=== PATIENT | female | born 1940 | race Caucasian/White ===

== ENCOUNTER 2021-12-30 08:44 | Inpatient (IN) | payer MEDICARE, OTHER, SELFPAY ==
[2021-12-30] VITALS (15 sets, daily range): BP systolic 102–147; BP diastolic 61–91; PULSE 77–128; RESP 16–24; TEMP 36.5–37.1; O2SAT 92–98; BMI 29.7
--- NOTE | 2021-12-30 08:44 | ECG_ITS ---
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 Measurements Intervals [place] Rate: 119 P: 23 WA: 141 QRS: 47 QRSD: 98 T: 211 QT: 301 QTc: 424 Interpretive Statements SINUS TACHYCARDIA LEFT VENTRICULAR HYPERTROPHY AND ST-T CHANGE [VOLTAGE CRITERIA PLUS ST/T ABNORMALITY] No previous ECG available for comparison Electronically Signed On 12-30-2021 14:11:13 CDT by Marvin Chen M.D. [id number]
--- NOTE | 2021-12-30 08:45 | XR_ITS ---
WS: [id number] Exam: XR chest 1V portable [id number] Date/Time of Exam: 12/30/2021 9:32 AM Reason For Exam: dyspnea/cough No priors. The lungs are fully expanded and clear. Normal cardiomediastinal silhouette for technique. No pleural effusions. Bony structures are intact. Surgical clips along the left axilla. XR/XR chest 1V portable [id number] IMPRESSION: 1. No acute cardiopulmonary finding.
--- NOTE | 2021-12-30 09:06 | ED_ITS ---
HPI - Chest Pain General: Chief Complaint: Chest Pain Stated Complaint: sore in chest Time Seen by Provider: 12/30/21 08:44 Source: patient Mode of arrival: ambulatory History of Present Illness: 81-year-old female presents emergency room with complaints of chest pain. She has had this on and off for some time she gets it at night she will belch she has lower substernal chest pain no radiation of the pain she has some chronic shortness of breath that is unchanged for this episode she is not anything that exacerbates or relieves. Evidently has been going on for some time she is chosen not to have any further evaluation. She has a known cardiac murmur that is being monitored with echocardiograms through her primary care doctor. She has a history of diabetes and hyperlipidemia, she is on metformin and a statin. She is not smoke she has no known coronary artery disease MD complaint: chest pain Onset (ago): week(s) Timing of current episode: episodic Prior episodes: Yes Onset: during rest Pain location: substernal and epigastric Pain radiation: none Severity: mild Quality: sharp Relieving factors: nothing Exacerbating factors: nothing Associated symptoms: Deny abdominal pain, diaphoresis, dyspnea, fever(s), leg edema, nausea, palpitations, sense of impending doom, syncope or vomiting Treatment prior to arrival: none Review of Systems Const: Denies: fever(s), chills, fatigue, malaise or diaphoresis ENMT: Denies: throat pain, ear or mastoid pain, nasal discharge or nasal congestion Card: Reports: chest pain and irregular heart rhythm; Denies: palpitations or syncope Resp: Denies: dyspnea GI: Denies: abdominal pain, nausea or vomiting : Denies: flank pain, difficulty voiding, dysuria, urinary frequency or urinary urgency Skin/Breast: Denies: rash or pruritus PFSH ED PFSH: Medical History Aortic stenosis Presumed based on patient's verbal history Breast cancer Diabetes mellitus Gout Hyperlipidemia Hypertension Hypothyroidism Surgical History History of hysterectomy History of mastectomy History of thyroidectomy History of tonsillectomy Family History Other CAD (coronary artery disease) Social History Smoking and tobacco status: never smoked Alcohol intake: never Physical Exam Const: GENERAL APPEARANCE: cooperative and comfortable ORIENTATION/CONSCIOUSNESS: Yes awake, Yes oriented to person, Yes oriented to pl adalberto and Yes oriented to time HENMT: COMMON NORMALS: normocephalic, atraumatic and hearing grossly normal bilaterally HEAD & SCALP: normocephalic and atraumatic Eye: COMMON NORMALS: Equal, round and reactive pupils present, EOMs intact bilaterally, conjunctivae normal and no scleral icterus CONJUNCTIVA: Yes conjunctivae normal PUPIL: Yes Equal, round and reactive pupils present Neck/C-Spine: COMMON NORMALS: full ROM, no lymphadenopathy, supple and no JVD Resp: COMMON NORMALS: normal respiratory effort, No retractions, No use of accessory muscles and clear to auscultation bilaterally AUSCULTATION: clear to auscultation bilaterally Cardio: COMMON NORMALS: no JVD, regular rate, regular rhythm and No murmurs present (Cardio) RATE: regular rate RHYTHM: regular rhythm GI: COMMON NORMALS: Soft to palpation and No hepatosplenomegaly present AUSCULTATION: Yes normoactive bowel sounds PALPATION: Yes Soft to palpation, No Tenderness to palpation present (GI), No Guarding due to palpation present (GI) and Yes No hepatosplenomegaly present Extremity: COMMON NORMALS: normal to inspection, capillary refill normal, no clubbing, cyanosis or edema, no calf tenderness and no pedal edema Neuro: SENSORIUM/ORIENTATION: Yes oriented to person, Yes oriented to place and Yes oriented to time Skin: OTHER: Eschared skin lesion raised posterior left shoulder suspicious for basal cell CA Course Vital Signs: Vital signs: Vital Signs Temperature 98.2 F 12/30/21 13:56 Pulse Rate 107 H 12/30/21 13:56 Respiratory Rate 20 H 12/30/21 13:56 Blood Pressure 135/75 12/30/21 13:56 Pulse Oximetry 98 12/30/21 13:56 Oxygen Delivery Me thod 12/30/21 13:56 Oxygen Flow Rate 2 12/30/21 10:29 MDM - Chest Pain Medical Decision Making Diffuse ST depression as well as progressive shortness of breath and chest discomfort with exertion culminating in significant enough symptoms to require presentation to the emergency room today.. The rate is improved she still has some ST depression although it is improved some initial troponin negative discussed with hospitalist will admit. Patient was given Plavix and initial dose of heparin as well as topical nitro. Medical Records I reviewed the patient's medical records. Lab Data I reviewed the patient's lab results. : 12/30/21 09:25 12/30/21 10:15 Radiology Impressions Chest X-Ray 12/30/21 08:45 IMPRESSION: 1. No acute cardiopulmonary finding. Chest CTA 12/30/21 11:22 IMPRESSION: 1. No pulmonary embolism. 2. Cholelithiasis without acute cholecystitis. 3. Small bilateral pleural effusions, LEFT greater than RIGHT. 4. Mild pulmonary edema. 5. Severe coronary artery atherosclerosis. 6. Prior LEFT mastectomy. Laboratory Results WBC 19.7 10^3/uL (4.0-10.0) H 12/30/21 09:25 RBC 4.68 10^6/uL (4.1-5.3) 12/30/21 09:25 Hgb 13.5 g/dL (11.5-15.3) 12/30/21 09:25 Hct 44.8 % (37.0-47.0) 12/30/21 09:25 MCV 95.7 fl (81-99) 12/30/21 09:25 MCH 28.8 pg (28.0-34.0) 12/30/21 09:25 MCHC 30.1 g/dL (30.0-36.0) 12/30/21 09:25 RDW 17.1 % (12.1-15.1) H 12/30/21 09:25 Plt Count 324 10^3/cmm (130-400) 12/30/21 09:25 MPV 10.7 fL (7.4-10.4) H 12/30/21 09:25 Neut % (Auto) 90.7 % 12/30/21 09:25 Lymph % (Auto) 3.5 % 12/30/21 09:25 Johnston % (Auto) 4.9 % 12/30/21 09:25 Eos % (Auto) 0.1 % 12/30/21 09:25 Baso % (Auto) 0.3 % 12/30/21 09:25 Neut # (Auto) 17.88 10^3/uL (1.8-7.7) H 12/30/21 09:25 Lymph # (Auto) 0.7 10^3/uL (0.8-4.8) L 12/30/21 09:25 Johnston # (Auto) 1.0 10^3/uL (0.2-0.9) H 12/30/21 09:25 Eos # (Auto) 0.0 10^3/uL (0.0-0.8) 12/30/21 09:25 Baso # (Auto) 0.1 10^3/uL (0.0-0.1) 12/30/21 09:25 Nucleated RBC % (auto) 0 % 12/30/21 09:25 Nucleated RBCs # 0.0 /100WBC 12/30/21 09:25 Sodium 139 mmol/L (136-145) 12/30/21 10:15 Potassium 4.8 mmol/L (3.5-5.1) 12/30/21 10:15 Chloride 100 mmol/L (98-107) 12/30/21 10:15 Carbon Dioxide 24 mmol/L (22-29) 12/30/21 10:15 Anion Gap 19.8 (5-19) H 12/30/21 10:15 BUN 15 mg/dL (8-23) 12/30/21 10:15 Creatinine 0.9 mg/dL (0.5-0.9) 12/30/21 10:15 GFR Calculation Not Reportable 12/30/21 10:15 Glucose 203 mg/dL (65-115) H 12/30/21 10:15 Calculated Osmolality 295 mOsm/kg (285-295) 12/30/21 10:15 Calcium 10.1 mg/dL (8.5-10.5) 12/30/21 10:15 Troponin T Baseline 39 ng/L (0-10) H 12/30/21 10:15 Troponin T 120 Minute 38.90 ng/L (0-10) H 12/30/21 12:15 Delta Troponin T -0.10 ABS# (0-10) L 12/30/21 12:15 TSH 0.07 uIU/mL (0.27-4.20) L 12/30/21 10:15 Urine Color Yellow (Yellow) 12/30/21 10:52 Urine Appearance Sl hazy (CLEAR) A 12/30/21 10:52 Urine pH 6.0 (5-7) 12/30/21 10:52 Ur Specific [place] >= 1.030 (1.005-1.030) 12/30/21 10:52 Urine Protein 2+ (Negative) A 12/30/21 10:52 Urine Glucose (UA) Negative (Normal) 12/30/21 10:52 Urine Ketones 1+ (Negative) A 12/30/21 10:52 Urine Blood Negative (Negative) 12/30/21 10:52 Urine Nitrate Positive 12/30/21 10:52 Urine Bilirubin Negative (Negative) 12/30/21 10:52 Urine Urobilinogen 0.2 mg/dL (Negative) 12/30/21 10:52 Ur Leukocyte Esterase 1+ 12/30/21 10:52 Urine RBC 0-4 /hpf (0-2) H 12/30/21 10:52 Urine WBC 25-40 /hpf (0-5) H 12/30/21 10:52 Ur Squamous Epith Cells 0-4 /hpf (0-5) H 12/30/21 10:52 Amorphous Sediment Not Reportable 12/30/21 10:52 Urine Bacteria 3+ /hpf (NONE) H 12/30/21 10:52 Discharge Plan Discharge Patient Disposition: Admitted As Inpatient Admit Provider: Anant Doherty Clinical Impression: Chest pain, Aortic stenosis, Diabetes mellitus, Hypothyroidism, UTI (urinary tract infection) Condition: Stable Coding Level of Care Code ED Commercial Sales Manager for Chg Fwd Exam Comprehensive
[2021-12-30 09:32] LABS: Basophils # 0.1 10^3/uL (0.0-0.1); Basophils % 0.3 %; Eosinophils % 0.1 %; Hematocrit 44.8 % (37.0-47.0); Hemoglobin 13.5 g/dL (11.5-15.3); Lymphocytes # 0.7 10^3/uL (0.8-4.8); Lymphocytes % 3.5 %; Mean Corpuscular HGB Conc 30.1 g/dL (30.0-36.0); Mean Corpuscular Hemoglobin 28.8 pg (28.0-34.0); Mean Corpuscular Volume 95.7 fl (81-99); Mean Platelet Volume 10.7 fL (7.4-10.4); Monocytes % 4.9 %; Neutrophils # 17.88 10^3/uL (1.8-7.7); Neutrophils % 90.7 %; Nucleated Red Blood Cells % 0 %; Platelet Count 324 10^3/cmm (130-400); Red Blood Count 4.68 10^6/uL (4.1-5.3); Red Cell Distribution Width 17.1 % (12.1-15.1); White Blood Count 19.7 10^3/uL (4.0-10.0)
[2021-12-30] MEDS: heparin 5,000 unit/mL INJ 1 mL 4000 UNIT IVP (09:35)
[2021-12-30] MEDS: clopidogrel 300 mg Tablet PO (09:36)
[2021-12-30] MEDS: nitroglycerin 1 gm/inch oint Pkt 1 INCH TOPICAL (09:36)
--- NOTE | 2021-12-30 10:10 | ECG_ITS ---
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 Measurements Intervals [place] Rate: 107 P: 49 ME: 149 QRS: 36 QRSD: 98 T: -75 QT: 311 QTc: 415 Interpretive Statements SINUS TACHYCARDIA WITH FREQUENT SUPRAVENTRICULAR PREMATURE COMPLEXES LEFT VENTRICULAR HYPERTROPHY AND ST-T CHANGE [VOLTAGE CRITERIA PLUS ST/T ABNORMALITY] Compared to ECG 12/30/2021 09:16:49 No significant changes Electronically Signed On 12-30-2021 14:11:11 CDT by Marvin Chen M.D. [id number]
[2021-12-30 10:36] LABS: Anion Gap 19.8 (5-19); Blood Urea Nitrogen 15 mg/dL (8-23); Calcium 10.1 mg/dL (8.5-10.5); Carbon Dioxide 24 mmol/L (22-29); Chloride 100 mmol/L (98-107); Glucose 203 mg/dL (65-115); Osmolality Calculated 295 mOsm/kg (285-295); Potassium 4.8 mmol/L (3.5-5.1); Sodium 139 mmol/L (136-145)
[2021-12-30 10:39] LABS: Troponin(5th) Baseline 39 ng/L (0-10)
--- NOTE | 2021-12-30 11:06 | PC.NURSE ---
Pt ambulated to restroom with standby assist and cane.
[2021-12-30 11:11] LABS: Bilirubin Urine Negative (Negative); Blood Urine Negative (Negative); Glucose Urine UA Negative (Normal); Ketones Urine 1+ (Negative); Leukocyte Esterase Urine 1+; Nitrate Urine Positive; Protein Urine 2+ (Negative); Specific Gravity, Urine >= 1.030 (1.005-1.030); Urine Color Yellow (Yellow); Urobilinogen Urine 0.2 mg/dL (Negative)
[2021-12-30 11:16] LABS: Add Urine Microscopic? YES; Urine Appearance SL Hazy (CLEAR)
[2021-12-30 11:17] LABS: RBC Urine 0-4 /hpf (0-2)
[2021-12-30 11:18] LABS: Add Urine Culture? Yes; Bacteria Urine 3+ /hpf; Squamous Epithelial Cell Urine 0-4 /hpf (0-5); WBC Urine 25-40 /hpf (0-5)
--- NOTE | 2021-12-30 11:22 | CT_ITS ---
WS: [id number] CT CHEST ANGIOGRAPHY WITH REFORMATS HISTORY: chest pain, dyspnea TECHNIQUE: Contiguous axial images are obtained through the chest during arterial injection of intrav enous contrast. Images are reconstructed to evaluate the pulmonary arteries. MIP imaging also reviewe d. All CT scans at [facility] use at least one of these dose optimization techniques: automat ed exposure control; mA and/or kV adjustment per patient size (includes targeted exams where dose is matched to clinical indication); or iterative reconstruction. CONTRAST: Omnipaque 350; 95 mL IV. DLP: 307.71 mGy.cm COMPARISON: None available. Very good opacification of the pulmonary arteries. No filling defects or pulmonary embolism. Pulmonar y artery size is top normal. Mild atherosclerotic plaque within the thoracic aorta. No aneurysm. Ther e is heavy calcification throughout the coronary arteries. 12 mm RIGHT hilar lymph node. Small bilateral pleural effusions, LEFT greater than RIGHT. There is also mild haziness throughout pasha th lungs which is probably due to small amount of edema. Pleural thickening at the lingula. No pneumo thorax. Patient is status post LEFT mastectomy. No abnormality at the mastectomy site. Cholelithiasis. No adrenal mass. Only a small portion of the liver is included. Mild osteopenia. CT/CT angio chest PE protcl [id number] IMPRESSION: 1. No pulmonary embolism. 2. Cholelithiasis without acute cholecystitis. 3. Small bilateral pleural effusions, LEFT greater than RIGHT. 4. Mild pulmonary edema. 5. Severe coronary artery atherosclerosis. 6. Prior LEFT mastectomy.
[2021-12-30 11:24] LABS: Thyroid Stimulating Hormone 0.07 uIU/mL (0.27-4.20)
--- NOTE | 2021-12-30 11:26 | USCV_ITS ---
Cristal Gonzalez Age: 81 Gender: F : 1940 Exam Date: 12/30/2021 12:01 Ordering Phys: Anant Doherty MD Technologist: Jonas Stevens [place] [facility] [place]: murmur BP: 132 / 74 HR: 103 Rhythm: Sinus Technical Quality: Adequate MEASUREMENTS (Male / Female) Normal Values 2D ECHO LV Diastolic Diameter PLAX 4.6 cm 4.2 - 5.9 / 3.9 - 5.3 cm LV Systolic Diameter PLAX 3.0 cm IVS Diastolic Thickness 1.0 cm 0.6 - 1.0 / 0.6 - 0.9 cm IVS Systolic Thickness 1.5 cm LVPW Diastolic Thickness 1.0 cm 0.6 - 1.0 / 0.6 - 0.9 cm LVPW Systolic Thickness 1.4 cm LVOT Diameter 2.0 cm LV Ejection Fraction 2D Teich 63.2 % LV Ejection Fraction MOD 2C 54.7 % LV Ejection Fraction 2C AL 53.9 % LA Diameter 4.4 cm Aorta at Sinotubular Diameter 2.7 cm IVC Diameter 1.9 cm M-MODE Aortic Annulus Diameter 2.8 cm LA Ao Ratio MM 1.3 MV E Point Septal Separation 1.0 cm DOPPLER AV Peak Velocity 446.0 cm/s LVOT Peak Velocity 75.7 cm/s AV Area Cont Eq vti 0.5 cm squared AV Area Cont Eq pk 0.5 cm squared MV Area PHT 5.0 cm squared Mitral E to A Ratio 1.3 MV E' Velocity 51.0 cm/s Mitral E to MV E' Ratio 13.5 Mitral E to LV E' Lateral Ratio 11.4 Mitral E to LV E' Septal Ratio 16.6 TR Peak Velocity 301.3 cm/s TR Peak Gradient 36.3 mmHg TV Peak E Velocity 89.0 cm/s Right Atrial Pressure 3.0 mmHg Pulmonary Artery Systolic Pressu 39.3 mmHg PV Peak Velocity 173.0 cm/s RV Acceleration Time 0.1 s FINDINGS Left Ventricle Normal LV size with ejection fraction of 50 to 55%. The basal inferior segment is somewhat dyskinetic. Hypokinetic mid and apical inferior wall segment.Grade III/IV diastolic dysfunction (restrictive filling pattern), severely elevated filling pressures. Right Ventricle The right ventricle is normal in size and function. Right Atrium Mildly increased right atrial size. Left Atrium Mildly increased left atrial size. Mitral Valve Moderate mitral annular calcification. Moderate eccentric mitral valve regurgitation. Aortic Valve Moderate to heavy aortic valve calcification. Sbhp-tn-hvhvrein aortic valve regurgitation. Severe aortic valve stenosis with a valve area of 0.5 cm2.the aortic valve peak velocity was 4.46 m/s.Peak gradient of 75.7 with a mean gradient of 32.4 mmHg. Mild to moderate aortic regurgitation. Tricuspid Valve Mild tricuspid valve regurgitation. Pulmonic Valve No gross abnormalities noted. Pericardium No pericardial effusion. Aorta Normal ascending aorta dimension. IVC Normal inferior vena cava. CONCLUSIONS Normal LV size with ejection fraction of 50 to 55%. The basal inferior segment is somewhat dyskinetic. Hypokinetic mid and apical inferior wall segment. Grade III/IV diastolic dysfunction (restrictive filling pattern), severely elevated filling pressures. Severe aortic valve stenosis with a valve area of 0.5 cm2; the peak velocity of 4.46 m/s, peak gradient of 75.7 with a mean gradient of 32.4 mmHg. Mild to moderate aortic regurgitation. Moderate mitral annular calcification. Moderate eccentric mitral valve regurgitation. Mild biatrial enlargement Mild tricuspid valve regurgitation. Estimated pulmonary artery peak systolic pressure was 39 mmHg There is no pericardial effusion. There are no intracardiac masses. No similar previous studies are available for comparison Dr Deonte Shah MD [facility] (Electronically Signed) Final Date: 30 December 2021 17:01 S
--- NOTE | 2021-12-30 11:32 | P.HP_ITS ---
Providers/Chief Complaint Admitting Physician: Anant Doherty MD Primary Care Provider: Mason Perea MD Chief Complaint: sore in chest History of Present Illness Cristal Gonzalez is a 81 year old female presenting to the emergency department with complaints of chest discomfort. She reports it was over her lower chest, severe, difficult to describe without radiation. It was associated with nausea and some shortness of breath. She states it lasted for approximately [address] arting at 3 AM and ending around 7-7 30. She states it initially started with burping, and that she can have this frequently but is never had chest discomfort with it. She denies any fever, vomiting, hematemesis, melena, hematochezia. She denies any discomfort now although she is still short of breath. She states she has past history of aortic stenosis, and there was consideration for surgery in the past but then it was determined it was not severe enough. She has seen [facility] cardiology before. In the emergency department she received 4000 units of heparin x1, Plavix 300 mg x 1, nitroglycerin ointment. Review of Systems Const: Denies: fever(s) or chills Eyes: Denies: change in vision ENMT: Denies: throat pain Card: Reports: chest pain and dyspnea on exertion Resp: Reports: dyspnea; Denies: productive cough or non-productive cough GI: Denies: abdominal pain, vomiting, hematemesis, hematochezia or melena : Denies: flank pain Musc: Denies: neck pain Skin/Breast: Denies: rash Neuro: Denies: headache(s) Psych: Reports: anxiety; Denies: depression Endo: Denies: polyuria Skyler/Lymph: Denies: easy bruising All/Imm: Denies: urticaria Medications/Allergies Home Medications Medication Instructions Recorded Confirmed Last Taken Type allopurinol 300 mg tablet 300 mg PO BEDTIME 12/30/21 12/30/21 12/29/21 History anastrozole 1 mg tablet 1 mg PO BEDTIME 12/30/21 12/30/21 12/29/21 History aspirin 81 mg tablet,delayed 81 mg PO BEDTIME 12/30/21 12/30/21 12/29/21 History release calcium carbonate 500 mg calcium 500 mg PO DAILY 12/30/21 12/30/21 Unknown History (1,250 mg) tablet cholecalciferol (vitamin D3) 10 800 unit PO DAILY 12/30/21 12/30/21 Unknown History mcg (400 unit) tablet (Vitamin D3) levothyroxine 125 mcg tablet 125 mcg PO QAM 12/30/21 12/30/21 12/29/21 History lisinopril 20 mg tablet 20 mg PO QAM 12/30/21 12/30/21 12/29/21 History lovastatin 20 mg tablet 20 mg PO BEDTIME 12/30/21 12/30/21 12/29/21 History metformin 500 mg tablet 500 mg PO BID 12/30/21 12/30/21 12/29/21 History omega-3 fatty acids 1,000 mg 1,000 mg PO DAILY 12/30/21 12/30/21 Unknown History capsule vit C 250 mg-vit E 90 mg-zinc 40 1 tab PO BID 12/30/21 12/30/21 12/29/21 History mg-copper 1 [id number] capsule (PreserVision AREDS-2) Allergies Allergy/AdvReac Type Severity Reaction Status Date / Time iodine Allergy ADR-Itching Verified 12/30/21 08:55 PFSH Acute PFSH: Medical History (Updated 12/30/21 @ 12:43 by Anant Doherty MD) Aortic stenosis Presumed based on patient's verbal history Breast cancer Diabetes mellitus Gout Hyperlipidemia Hypertension Hypothyroidism Surgical History (Updated 12/30/21 @ 12:38 by Anant Doherty MD) History of hysterectomy History of mastectomy History of thyroidectomy History of tonsillectomy Family History (Updated 12/30/21 @ 12:39 by Anant Doherty MD) Other CAD (coronary artery disease) Social History Smoking and tobacco status: never smoked Alcohol intake: never Vitals/I&O/Wt Last Vital Signs Temp 98.8 F 12/30/21 08:57 Pulse 123 H 12/30/21 11:08 Resp 20 H 12/30/21 11:08 BP 126/83 12/30/21 11:08 Pulse Ox 95 12/30/21 11:08 O2 Del Method 12/30/21 11:08 O2 Flow Rate 2 12/30/21 10:29 Weight last 48 hrs Weight 78.471 kg Physical Exam Narrative: General exam demonstrates a white female, no distress currently but at least mild tachypnea with mild respiratory distress HEENT: Atraumatic normocephalic pupils equally round. Oropharynx clear. Neck is supple no lymphadenopathy or thyromegaly Cardiovascular tachycardic, regular, 3-4/6 systolic murmur heard best aortic area with radiation to apex Lungs clear no wheezing or crackles Abdomen is soft nontender positive bowel sounds. No obvious organomegaly. exam is deferred Extremities no cyanosis clubbing or edema, cap refill brisk Skin no rash Neuro no obvious focal deficits Data : 12/30/21 09:25 12/30/21 10:15 Other Labs: Initial EKG demonstrates sinus rhythm, rate of 120, normal axis, LVH changes. ST depression noted V4 through 6 as well as laterally and inferiorly. Repeat EKG demonstrates heart rate of 105. ST depression is less prominent V4 through 6. T waves are flattened but now not inverted in the lateral leads. TSH low at 0.07 Troponin 39 initially Urinalysis 25-40 white cells 0-4 squamous and 3+ bacteria Chest x-ray no infiltrate A&P Assessment and plan (1) Chest pain: Concern on admission this may represent a non-ST elevation myocardial infarction. Initial troponin is elevated. EKG with changes were present, which seem to have improved over her emergency department course. However, considering her cancer history and patient also reported to me she may have had COVID with 3 to 4 days of fever around 4-1/2 weeks ago and loss of s enrique will need to rule out pulmonary embolism with CTA of the chest. Full dose anticoagulation Aspirin daily Continue statin Cardiology consult Echocardiogram Note that she was loaded with Plavix by the emergency department physician. CTA demonstrates bilateral pleural effusions, small left greater than right and mild fluid overload. Will provide Lasix 40 mg IV x1. This is consistent with acute mild diastolic congestive heart failure (2) Aortic stenosis: Severe aortic stenosis could lead to chest discomfort. Await echocardiogram. (3) UTI (urinary tract infection): Rocephin 1 g IV every 24 hours Urine culture (4) Diabetes mellitus: Initiate sliding scale insulin (5) Hypothyroidism: She appears to be oversupplemented Reduce thyroid hormone to 100 mcg daily Plan Other medical problems as outlined in past medical history Full code currently Lovenox will be used for DVT prophylaxis Protonix for GI prophylaxis Attestations Medical Necessity Statement*: Will require greater than 2 midnight evaluation and treatment secondary to non-ST elevation myocardial infarction. Coding Level of Care Code Acute Online Advertising Manager for g Fwd Diagnoses Chest pain R07.9 Aortic stenosis I35.0 UTI (urinary tract infection) N39.0 Diabetes mellitus E11.9 Hypothyroidism E03.9
[2021-12-30] MEDS: diphenhydrAMINE 50 mg/mL SDV 1mL IVP (12:17)
[2021-12-30] MEDS: cefTRIAXone 1,000 MG in sodium chloride 0.9% (plus) 50 ML 100 MG IV (12:19)
[2021-12-30] MEDS: iohexol 350 mg/mL 100 mL Btl IV (12:48)
--- NOTE | 2021-12-30 12:51 | PC.NURSE ---
Report called to LIZZY Arias
[2021-12-30] MEDS: FUROsemide 10 mg/mL SDV 4mL 40 MG IVP (15:46)
[2021-12-30 16:33] LABS: Glucose Point of Care 224 mg/dL (70-110)
--- NOTE | 2021-12-30 16:34 | PM.CONSULT ---
Providers/Reason For Consult Consulting Physician/Specialty*: IBAN Shah MD/cardiology Reason for Consult*: Chest pain/abnormal EKG/aortic valve stenosis Requesting Physician: Dr. Anant Doherty Attending Physician: Anant Doherty MD Primary Care Provider: Mason Perea MD History of Present Illness History of Present Illness Cristal Gonzalez is a 81 year old female with a history of diabetes, hypertension, dyslipidemia, and calcific aortic valve stenosis is admitted to hospital through the emergency room where she presented with complaints of a prolonged episode of chest pain and belching. She was found to have elevated troponin T at the baseline with a nonsignificant delta. She also had some EKG changes. Cardiology consult is requested for further cardiac evaluation recommendations. This patient has no previous history for any coronary artery disease, myocardial infarction or congestive heart failure. She has been in her baseline state of health up until 3:00 this morning when she woke up from sleep, started twinges or pain occurring across the chest, in the low substernal area. This is moderate intensity. This symptom might have persisted for 2 to 3 hours. The pain was preceded by some belching. Later when she had a bowel movement which might have got rid of the belching. However she continued to have the pain for an hour or so. By the time she came to the emergency room, her chest pain was completely resolved. Has not had any recurrence since then. She has a history of belching at least couple of times a week mostly in the night. She also get belching with a full stomach. This has been going on for a year or so. usually she does not have the pain with the belching. She used to see a director sanitation bureau in [place]. This was mainly for the aortic valve stenosis. She used to get serial echocardiogram to follow-up on the aortic valve stenosis. She never had a stress test or cardiac catheterization. However for the last more than a year, she has not had any follow-up evaluations by the director sanitation bureau And her father had a myocardial infarction in his late 60s and of the same. 2 of her sisters had coronary disease and myocardial infarction in the 60s and 70s. 3 of her the paternal uncles also had a myocardial infarction's. No history for any smoking abuse or alcohol abuse. No other substance abuse. Review of Systems Narrative: CONSTITUTIONAL: No fever or chills. EYES: No blurring of vision or other visual disturbances lately. ENT: No hoarseness of voice, auditory disturbances or sore throat. CARDIOVASCULAR: As mentioned above. RESPIRATORY: No significant cough. GASTROINTESTINAL: No hematemesis or melena. GENITOURINARY: No dysuria or hematuria. INTEGUMENTARY: No skin rashes or history of skin cancer. NEURO: No transient ischemic attacks or amaurosis. PSYCHIATRIC: No history of psychosis or major depression. HEMATOLOGIC: No bleeding disorders or significant anemia. ENDOCRINE: History of type 2 diabetes MUSCULOSKELETAL: No recent joint pain or swelling. ALLERGY/IMMUNOLOGY: As mentioned above. Medications/Allergies Home Medications Medication Instructions Recorded Confirmed Last Taken Type allopurinol 300 mg tablet 300 mg PO BEDTIME 12/30/21 12/30/21 12/29/21 History anastrozole 1 mg tablet 1 mg PO BEDTIME 12/30/21 12/30/21 12/29/21 History aspirin 81 mg tablet,delayed 81 mg PO BEDTIME 12/30/21 12/30/21 12/29/21 History release calcium carbonate 500 mg calcium 500 mg PO DAILY 12/30/21 12/30/21 Unknown History (1,250 mg) tablet cholecalciferol (vitamin D3) 10 800 unit PO DAILY 12/30/21 12/30/21 Unknown History mcg (400 unit) tablet (Vitamin D3) levothyroxine 125 mcg tablet 125 mcg PO QAM 12/30/21 12/30/21 12/29/21 History lisinopril 20 mg tablet 20 mg PO QAM 12/30/21 12/30/21 12/29/21 History lovastatin 20 mg tablet 20 mg PO BEDTIME 12/30/21 12/30/21 12/29/21 History metformin 500 mg tablet 500 mg PO BID 12/30/21 12/30/21 12/29/21 History omega-3 fatty acids 1,000 mg 1,000 mg PO DAILY 12/30/21 12/30/21 Unknown History capsule vit C 250 mg-vit E 90 mg-zinc 40 1 tab PO BID 12/30/21 12/30/21 12/29/21 History mg-copper 1 cm-[id number]-edfmbb capsule (PreserVision AREDS-2) Allergies Allergy/AdvReac Type Severity Reaction Status Date / Time iodine Allergy ADR-Itching Verified 12/30/21 08:55 Current Medications Generic Name Dose Route Start Last Admin Trade Name Carlosq PRN Reason Stop Dose Admin Ceftriaxone Sodium 1,000 mg/ 50 mls @ 100 mls/hr 12/30/21 11:30 12/30/21 13:22 Sodium Chloride IV Infused Q24H PADMA Infusion Protocol PFSH Acute PFSH: Medical History (Updated 12/30/21 @ 18:24 by Deonte Shah MD) Aortic stenosis Presumed based on patient's verbal history Breast cancer Diabetes mellitus Gout Hyperlipidemia Hypertension Hypothyroidism Surgical History History of hysterectomy History of mastectomy History of thyroidectomy History of tonsillectomy Family History Other CAD (coronary artery disease) Social History Smoking and tobacco status: never smoked Alcohol intake: never Vitals/I&O/Wt Last Vital Signs Temp 98.0 F 12/30/21 16:00 Pulse 97 12/30/21 16:00 Resp 20 H 12/30/21 16:00 BP 127/72 12/30/21 16:00 Pulse Ox 95 12/30/21 16:00 O2 Del Method 12/30/21 16:00 O2 Flow Rate 2 12/30/21 10:29 12/30/21 12/30/21 12/30/21 06:59 14:59 22:59 Intake Total 50 / 50 Balance 50 / 50 Weight last 48 hrs Weight 164 lb 6.4 oz Weight 173 lb Physical Exam Narrative: GENERAL: The patient is alert and oriented times three. Not in any acute distress. HEENT: No significant pallor, icterus or lymphadenopathy.Oral cavity: There are no mucous membrane lesions. NECK: Trachea appears to be central. No masses noted. No JVD or thyromegaly appreciated. RESPIRATORY: Chest is symmetrical. No intercostals muscle retraction or any accessory muscle activation. There is no chest wall tenderness. Breath sounds are heard bilaterally. No rales or rhonchi heard. No evidence of any consolidation. BREASTS: Deferred. HEART: Ejection systolic murmur of a grade 4/6 in the aortic area, transmitted to both carotids. No diastolic murmurs. Second is somewhat muffled. ABDOMEN: No vessel pulsations or distention. No tenderness. No organomegaly appreciated. Bowel sounds are normally heard. : Deferred. RECTAL: Deferred. LYMPHATIC: No lymphadenopathy noted in the neck. EXTREMITIES: The peripheral pulses are palpable but somewhat weak bilaterally. No cyanosis. No significant edema. MUSCULOSKELETAL: No acute joint deformities or swelling SKIN: There are no significant rashes or ecchymosis NEUROPSYCHIATRIC: The patient is alert and oriented x3. Appears to be in a good mood. No tremors or rigidity noted. Data : 12/30/21 09:25 12/30/21 10:15 Other Labs: Laboratory Last Values WBC 19.7 10^3/uL (4.0-10.0) H 12/30/21 09:25 RBC 4.68 10^6/uL (4.1-5.3) 12/30/21 09:25 Hgb 13.5 g/dL (11.5-15.3) 12/30/21 09:25 Hct 44.8 % (37.0-47.0) 12/30/21 09:25 MCV 95.7 fl (81-99) 12/30/21 09:25 MCH 28.8 pg (28.0-34.0) 12/30/21 09:25 MCHC 30.1 g/dL (30.0-36.0) 12/30/21 09:25 RDW 17.1 % (12.1-15.1) H 12/30/21 09:25 Plt Count 324 10^3/cmm (130-400) 12/30/21 09:25 MPV 10.7 fL (7.4-10.4) H 12/30/21 09:25 Neut % (Auto) 90.7 % 12/30/21 09:25 Lymph % (Auto) 3.5 % 12/30/21 09:25 Wright % (Auto) 4.9 % 12/30/21 09:25 Eos % (Auto) 0.1 % 12/30/21 09:25 Baso % (Auto) 0.3 % 12/30/21 09:25 Neut # (Auto) 17.88 10^3/uL (1.8-7.7) H 12/30/21 09:25 Lymph # (Auto) 0.7 10^3/uL (0.8-4.8) L 12/30/21 09:25 Wright # (Auto) 1.0 10^3/uL (0.2-0.9) H 12/30/21 09:25 Eos # (Auto) 0.0 10^3/uL (0.0-0.8) 12/30/21 09:25 Baso # (Auto) 0.1 10^3/uL (0.0-0.1) 12/30/21 09:25 Nucleated RBC % (auto) 0 % 12/30/21 09:25 Nucleated RBCs # 0.0 /100WBC 12/30/21 09:25 Sodium 139 mmol/L (136-145) 12/30/21 10:15 Potassium 4.8 mmol/L (3.5-5.1) 12/30/21 10:15 Chloride 100 mmol/L (98-107) 12/30/21 10:15 Carbon Dioxide 24 mmol/L (22-29) 12/30/21 10:15 Anion Gap 19.8 (5-19) H 12/30/21 10:15 BUN 15 mg/dL (8-23) 12/30/21 10:15 Creatinine 0.9 mg/dL (0.5-0.9) 12/30/21 10:15 GFR Calculation Not Reportable 12/30/21 10:15 Glucose 203 mg/dL (65-115) H 12/30/21 10:15 POC Glucose 224 mg/dL (70-110) H 12/30/21 16:29 Calculated Osmolality 295 mOsm/kg (285-295) 12/30/21 10:15 Calcium 10.1 mg/dL (8.5-10.5) 12/30/21 10:15 Troponin T Baseline 39 ng/L (0-10) H 12/30/21 10:15 Troponin T 120 Minute 38.90 ng/L (0-10) H 12/30/21 12:15 Delta Troponin T -0.10 ABS# (0-10) L 12/30/21 12:15 Troponin T Hi Sens 6Hr 43.76 ng/L (0-10) H 12/30/21 16:00 Troponin T Hi Sens 6Hr Delta 4.76 ng/L (0-12) 12/30/21 16:00 TSH 0.07 uIU/mL (0.27-4.20) L 12/30/21 10:15 Urine Color Yellow (Yellow) 12/30/21 10:52 Urine Appearance Sl hazy (CLEAR) A 12/30/21 10:52 Urine pH 6.0 (5-7) 12/30/21 10:52 Ur Specific [place] >= 1.030 (1.005-1.030) 12/30/21 10:52 Urine Protein 2+ (Negative) A 12/30/21 10:52 Urine Glucose (UA) Negative (Normal) 12/30/21 10:52 Urine Ketones 1+ (Negative) A 12/30/21 10:52 Urine Blood Negative (Negative) 12/30/21 10:52 Urine Nitrate Positive 12/30/21 10:52 Urine Bilirubin Negative (Negative) 12/30/21 10:52 Urine Urobilinogen 0.2 mg/dL (Negative) 12/30/21 10:52 Ur Leukocyte Esterase 1+ 12/30/21 10:52 Urine RBC 0-4 /hpf (0-2) H 12/30/21 10:52 Urine WBC 25-40 /hpf (0-5) H 12/30/21 10:52 Ur Squamous Epith Cells 0-4 /hpf (0-5) H 12/30/21 10:52 Amorphous Sediment Not Reportable 12/30/21 10:52 Urine Bacteria 3+ /hpf (NONE) H 12/30/21 10:52 EKG 1: My Interpretation: Sinus tachycardia with a rate of 119 bpm. Voltage criteria for LVH. Downsloping ST depression with T inversion in the anterolateral leads suggesting ischemia versus secondary ST-T changes from the LVH. Normal QTC. EKG computer-generated impression: Chest X-Ray 12/30/21 08:45 IMPRESSION: 1. No acute cardiopulmonary finding. Chest CTA 12/30/21 11:22 IMPRESSION: 1. No pulmonary embolism. 2. Cholelithiasis without acute cholecystitis. 3. Small bilateral pleural effusions, LEFT greater than RIGHT. 4. Mild pulmonary edema. 5. Severe coronary artery atherosclerosis. 6. Prior LEFT mastectomy. EKG 2: My Interpretation: Sinus tachycardia with a heart rate of 106 bpm. Features of LVH. ST depression of 1 to 2 mm in the anterolateral leads with T inversions suggesting ischemia versus secondary ST-T changes EKG computer-generated impression: Chest X-Ray 12/30/21 08:45 IMPRESSION: 1. No acute cardiopulmonary finding. Chest CTA 12/30/21 11:22 IMPRESSION: 1. No pulmonary embolism. 2. Cholelithiasis without acute cholecystitis. 3. Small bilateral pleural effusions, LEFT greater than RIGHT. 4. Mild pulmonary edema. 5. Severe coronary artery atherosclerosis. 6. Prior LEFT mastectomy. 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 In view of the current symptoms, EKG, echocardiogram evidence of wall motion normalities, most likely she may have underlying coronary disease. For further evaluation of the coronary status, a cardiac catheterization would be appropriate. The risk of bleeding, hematoma, vascular injury, myocardial infarction, CVA, renal failure and other concomitant complications were explained in detail. Patient understood this well and consented to proceed. We may go ahead and schedule this as early as possible. In the meanwhile, she may be kept on Lovenox, beta-abel, Plavix, aspirin, statin and other symptomatic measures. Based on the angiogram findings, further recommendations will be made (2) Severe aortic valve stenosis: Patient seems to have severe aortic valve stenosis. We may try to cross the aortic valve to get a gradient across the aortic valve. Based on this, further recommendations will be made. (3) Hyperlipidemia: Continue on the current medications (4) Diabetes mellitus: Aggressive management as per Dr. Gibson Plan Other problems Iodide allergy-responded well to 1 dose of IV methylprednisone Leukocytosis, etiology unclear Based on the results of the above tests and the patient's clinical progress, further recommendations will be made. 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
--- NOTE | 2021-12-30 16:45 | ECG_ITS ---
[facility] Test Date: 2021-12-30 Pat Name: Cristal Gonzalez Department: Room: 277 Gender: Female [employer] Representative: : 1940 Requested By: Nate Gates Order Number: [id number] Nehemiah MD: Marvin Chen M.D. Measurements Intervals [place] Rate: 105 P: 39 ND: 154 QRS: 28 QRSD: 93 T: -3 QT: 356 QTc: 471 Interpretive Statements SINUS TACHYCARDIA WITH OCCASIONAL SUPRAVENTRICULAR PREMATURE COMPLEXES LEFT VENTRICULAR HYPERTROPHY AND ST-T CHANGE [VOLTAGE CRITERIA PLUS ST/T ABNORMALITY] Compared to ECG 12/30/2021 10:10:34 No significant changes Electronically Signed On 12-31-2021 8:51:27 CDT by Marvin Chen M.D. [id number]
[2021-12-30 16:59] LABS: Troponin 5 6HR 43.76 ng/L (0-10)
[2021-12-30 17:05] LABS: Troponin 5 6HR Delta 4.76 ng/L (0-12)
[2021-12-30] MEDS: enoxaparin 80 mg/0.8 mL Syringe SUBCUT (19:12)
[2021-12-30] MEDS: insulin lispro 100 unit/1 mL SUBCUT ×2 (19:12→21:04)
[2021-12-30] MEDS: allopurinol 300 mg Tablet PO (20:35)
[2021-12-30] MEDS: aspirin 81 mg EC Tablet PO (20:35)
[2021-12-30] MEDS: atorvastatin 40 mg Tablet 20 MG PO (20:35)
[2021-12-30 20:39] LABS: Glucose Point of Care 333 mg/dL (70-110)
[2021-12-31] VITALS (58 sets, daily range): BP systolic 83–131; BP diastolic 45–82; PULSE 68–118; RESP 16–22; TEMP 36.5–36.7; O2SAT 95–99
[2021-12-31 05:23] LABS: Basophils % 0.1 %; Hematocrit 36.9 % (37.0-47.0); Hemoglobin 11.6 g/dL (11.5-15.3); Lymphocytes # 0.9 10^3/uL (0.8-4.8); Lymphocytes % 6.4 %; Mean Corpuscular HGB Conc 31.4 g/dL (30.0-36.0); Mean Corpuscular Hemoglobin 28.2 pg (28.0-34.0); Mean Corpuscular Volume 89.8 fl (81-99); Mean Platelet Volume 10.4 fL (7.4-10.4); Monocytes # 0.8 10^3/uL (0.2-0.9); Monocytes % 6.3 %; Neutrophils # 11.48 10^3/uL (1.8-7.7); Neutrophils % 86.8 %; Nucleated Red Blood Cells % 0 %; Platelet Count 306 10^3/cmm (130-400); Red Blood Count 4.11 10^6/uL (4.1-5.3); Red Cell Distribution Width 16.8 % (12.1-15.1); White Blood Count 13.2 10^3/uL (4.0-10.0)
[2021-12-31] MEDS: diphenhydrAMINE 50 mg Capsule PO (05:27)
[2021-12-31] MEDS: sodium chloride 0.9% 1,000 ML 50 ML IV (05:33)
[2021-12-31] MEDS: lisinopril 10 mg Tablet PO (05:36)
[2021-12-31 05:41] LABS: Alanine Aminotransferase 8 U/L (0-33); Albumin Level 3.3 g/dL (3.5-5.2); Alkaline Phosphatase 61 U/L (35-105); Anion Gap 19.6 (5-19); Aspartate Amino Transferase 11 U/L (0-32); Blood Urea Nitrogen 21 mg/dL (8-23); Calcium 9.6 mg/dL (8.5-10.5); Carbon Dioxide 19 mmol/L (22-29); Chloride 101 mmol/L (98-107); Globulin 3.7 g/dL (1.3-4.6); Glucose 164 mg/dL (65-115); Osmolality Calculated 287 mOsm/kg (285-295); Potassium 4.6 mmol/L (3.5-5.1); Sodium 135 mmol/L (136-145); Total Bilirubin 0.5 mg/dL (0.15-1.2)
[2021-12-31 06:42] LABS: Glucose Point of Care 178 mg/dL (70-110)
--- NOTE | 2021-12-31 07:00 | XACV_ITS ---
Exam Room: 2 Ht: 163 cm Wt: 74 kg BSA: 1.85 m2 Gender: Female : 1940 Exam Priority: Routine Procedure(s): Procedure Description: Diagnostic procedure Procedure Description: PCI procedure Procedure Description: Drug Eluting Coronary Stent Procedure Description: PTCA Procedure Description: Miscellaneous Procedure Description: ACT Procedure Description: Coronary Angiography Pablo WILBURN; Diagnostic Cath Status: Urgent Diagnostic Findings * The left main is a medium caliber vessel which was found to have around 20% napkin ring type of lesion distally. The proximal artery was found to have minimal intimal irregularities. * The left-sided descending artery is a medium caliber vessel which was found to have mild diffuse irregularities narrowing proximally. The mid segment of the artery was found to have around 95% lesion after the second diagonal branch. The distal artery was found to have mild diffuse disease with no significant obstructive lesions. The artery appears to wrap around the LV apex. The diagonal branches are found to have some moderate ostial narrowing. * The left circumflex artery is a medium caliber vessel which appears to be extremely tortuous proximally. It gives off a high obtuse marginal branch. The proximal segments of the artery was found to be extremely tortuous and moderate diffuse disease. The mid artery was found to have around 50% segmental narrowing. Left to right collaterals were noted filling of the PLV and the PDA branch of the right coronary artery.. * The right coronary artery is a medium caliber vessel which he was found to have a tapering narrowing of around 50% proximally. The artery appears to be totally occluded after the first artery branch. Some bridging collaterals are noted filling up the distal segment of the right coronary artery. PCI Status: Urgent PCI Indication: New Onset Angina <= 2 months Interventional Findings * Procedure Detail: We engaged left main artery with XB 3.5 guide catheter. IV heparin was administered to maintain ACT above 250 S. We used 0.014 run-through guidewire to cross mid LAD stenosis and was put in distal vessel. Mid LAD stenosis was predilated with 2.5 x 12 mm noncompliant balloon. This was followed by placement of 3.0 x 15 mm resolute B[place] drug-eluting stent. Post dilation of proximal section was performed with 3.0 x 6 mm NC balloon. At this time final angiogram was performed that showed excellent stent expansion, no residual stenosis and SUJATHA-3 flow. Guidewire and guide catheter were removed. Patient left the Correctional Supervising Cook in a stable condition.. * Mid Left Anterior Descendin% stenosis treated with a AB TREK 2.50X12 RX BALLOON, MDT R MÓNICA 3.0X15 PATRICIA, and MDT NC EUPHORA RX [id number] BALLOON. 0% residual stenosis, SUJATHA: 3 flow. Conclusions 1. 81-year-old white female with a history of hypertension, type 2 diabetes and dyslipidemia, presents with complaints of prolonged episode of chest pain. She was found to have elevated troponin T. Echocardiogram revealed severe aortic valve stenosis with a valve area of 0.5 cm2. Her EKG showed ST changes suggestive of ischemia in the anterolateral region. For further evaluation of her symptoms, a cardiac catheterization was recommended. Patient underwent left and right coronary angiogram. The findings are as mentioned below. 2. 1. Mild distal left main disease. 2. High-grade lesion in the mid LAD, right after the second diagonal branch. 3. Total occlusion of the mid RCA with fairly good [id number] collaterals. 4. Mild to moderate diffuse disease in the other vessels. 3. Successful revascularization of mid LAD with PATRICIA x1. 4. Mid Left Anterior Descending was treated with a Balloon, Drug Eluting Stent, and Balloon. Recommendations * Dual antiplatelet therapy aspirin and Plavix for at least 1 year. * High intensity statin therapy. * Valve replacement plan is outpatient. * Outpatient cardiology follow-up in 2 to 4 weeks. Interventional RX Recommendation: PCI w/o planned CABG Diagnostic RX Recommendation: PCI w/o planned CABG Left Ventriculography Findings: * I attempted to the cross the aortic valve. Because of the technical difficulty, it was aborted. Pressures Phase:Rest AO : 94 / 50 ( 70 ) @ 8:29:00 AM 101 / 64 ( 76 ) @ 8:39:00 AM 91 / 51 ( 68 ) @ 9:03:00 AM 108 / 64 ( 84 ) @ 9:08:00 AM Clinical Evaluation EBL: 5mL-10mL Procedural Details Procedure Consent Obtained. Admit Source: In Patient. Pre-Procedure Time Out. Identified patient by full name and date of as verbalized by the patient/guarantor. Does the consent match the physician's order: Yes. Accurate & Complete Informed Consent: Yes. Inpatient/Outpatient History & Physical on Chart: Yes. If H&P is completed, is and addenduem needed: N/A; If yes, is the addendum complete: N/A. Visualize and Verify Site with Patient/Guarantor: N/A. Relevant Radiology Images available: N/A. Pre-op teaching completed and patient verbalized understanding. The risks, benefits, and alternatives of sedation and/or procedure were discussed by physician. The patient agrees to continue. Procedure started. [facility] Clinical Fraility Score: 3: Managing Well. Correctional Supervising Cook Indications: New Onset Angina. Chest Pain Symptom Assessment: Typical Angina Symptoms. Correct patient, site and procedure confirmed by cath team. Current diagnosis: Chest Pain. PERRLA. Strong, equal hand digital research analyst bilaterally. Lungs clear x 5 lobes. IV Site on Arrival: 18 gauge in the right anticubital. IV Site on Arrival: 22 gauge in the right forearm. IV Fluids: 0.9% NaCl at KVO. 0 mL infused prior to vat house laborer. Pre Procedural Pulses: right radial was 1+. Pre Procedural Pulses: bilateral dorsalis pedis was 1+. Oxygen started at 2liters/min via nasal canula. right groin was prepped with chloroprep then draped in the usual sterile fashion. Physician notified. Baseline sample Acquired. HR: 119 BPM. Physician arrived. Physician scrubbed in. Immediate Pre-Procedure Time Out. Correct Patient: Yes; Correct Procedure: Yes; Correct Site: Yes; Correct Patient Position: Yes; Correct Supplies: Yes; Dried Flammable Prep: Yes; Blood Products Available: No;. Lidocaine 1% infiltrated to the right groin. Arterial access obtained with micropuncture set. A 5 brazilian JL4 catheter in over wire. Multiple views taken of left coronary artery. Dr. Chen notified to review cine films. Catheter removed over the standard wire. A 5 brazilian JR4 catheter in over wire. Multiple views taken of right coronary artery. Catheter removed over the standard wire. Side port of sheath attached to Normal Saline flush at KVO to maintain patency. Physician review of cine films. Dr. Chen scrubbed in to perform intervention. Sheath upsized to a 6 Fr. Patient's family unavailable. 6 brazilian XB 3.5 guide catheter was inserted over the wire. AP pads applied to patient chest. Runthrough guidewire was advanced through the guide catheter to lesion in the mid LAD. Balloon inserted to lesion in the mid LAD. Inflation number : 1 A AB TREK 2.50X12 RX BALLOON was prepped and advanced across the Mid LAD , then inflated to 8 DIANE for 0:16 seconds. Inflation number: 2 The AB TREK 2.50X12 RX BALLOON was reinflated across the Mid LAD, to 8 DIANE for 0:16 seconds. Balloon out. Stent inserted to lesion in the mid LAD. Inflation Number : 3 A SHAWNA Guadarrama MÓNICA 3.0X15 PATRICIA -Lot Number#[id number] Exp 05/07/2024was prepped and advanced across the Mid LAD. The stent was deployed at 12 DIANE for 0:15 seconds. Stent balloon out over wire. Inflation number : 4 A SHAWNA EGAN EUPHORA RX [id number] BALLOON was prepped and advanced across the Mid LAD , then inflated to 15 DIANE for 0:22 seconds. Balloon out. Results checked. Wire out. Results checked. Guide catheter out. Lenka Bacon RN was relieved by Carolynn Panda RN, [facility] as monitoring person. ACT drawn. Results 220 seconds. Therapeutic limits - pre-heparin administration 90-150 seconds and monitoring heparin during a vascular procedure >[address] Chen scrubbed out. Sheath(s) sutured into position with 2-0 silk and sterile 4x4's and Op-site applied over the site. No oozing or signs and symptoms of hematoma noted. Arterial sheath flushed and connected to tranducer and pressure bag with heparinized saline. A Suture was successful obtaining hemostatsis at the Right Femoral artery insertion site. Post Procedure: Pulses reassessed and unchanged. PERRLA. Strong, equal hand digital research analyst bilaterally. No VTE prophylaxis required. Medication's Wasted: Heparin = 4000 units. Total IV fluids: 500 mL. Post-op diagnosis: PCI of the Mid LAD. Complications: none. Estimated blood loss: 5mL-10mL. Responsiveness - Normal response to verbal stimuli; alert and oriented, PERRLA. Airway - Unaffected, no intervention required; spontaneous ventilation. Circulation: W/N/L, pulses unchanged. Nausea/Vomiting: No. Procedure completed. Patient transferred by bed to [facility]. Vital chart was stopped. Access Site Site: Right Femoral artery Sheath Size: 5 Fr Hemostasis Method: Suture Hemostasis Success: Successful Procedure Medications Start: 7:14 AM Stop: 7:14 AM Medication: Versed Amount: 1 mg Route: I.V. Start: 7:14 AM Stop: 7:14 AM Medication: Fentanyl Amount: 50 mcg Route: I.V. Start: 7:15 AM Stop: 7:15 AM Medication: Solu-Medrol (methylprednisolone) Amount: 50 mg Route: I.V. Start: 7:22 AM Stop: 7:22 AM Medication: Versed Amount: 1 mg Route: I.V. Start: 7:25 AM Stop: 7:25 AM Medication: Fentanyl Amount: 50 mcg Route: I.V. Start: 7:30 AM Stop: 7:30 AM Medication: Versed Amount: 1 mg Route: I.V. Start: 7:30 AM Stop: 7:30 AM Medication: 0.9% Saline Amount: 250 ml Route: I.V. bolus Start: 7:37 AM Stop: 7:37 AM Medication: Versed Amount: 1 mg Route: I.V. Start: 7:55 AM Stop: 7:55 AM Medication: Heparin Amount: 7000 units Route: I.V. Start: 8:02 AM Stop: 8:02 AM Medication: 0.9% Saline Amount: 250 ml Route: I.V. bolus Start: 8:08 AM Stop: 8:08 AM Medication: Heparin Amount: 1000 units Route: I.V. Start: 8:17 AM Stop: 8:17 AM Medication: Heparin Amount: 2000 units Route: I.V. Start: 8:20 AM Stop: 8:20 AM Medication: Plavix Amount: 300 mg Route: P.O. I, the attending physician, have reviewed and verified all procedure medications. Yes, all medications given per verbal order History/Risk Factors Hypertension: Yes Dyslipidemia: Yes Peripheral Arterial Disease (PAD): No Myocardial Infarction (RI): No Obesity: Yes Renal Disease: No Tobacco Use: Never Prior Interventions PCI: No CABG: No Valve Surgery: No Report Signatures Interventional Workflow Finalized by Marvin Chen MD on 01/03/2022 12:20 AM Diagnostic Workflow Finalized by Dr Deonte Shah MD [facility] on 01/01/2022 11:54 AM
--- NOTE | 2021-12-31 07:55 | W.PM.OPSUD ---
Surgery/Procedure H&P Update DATE OF PROCEDURE: December 31, 2021 DATE H&P PERFORMED: 12/30/21 H&P UPDATE INFORMATION: I have reviewed H&P completed within last 30 days, I have examined patient prior to procedure and No changes to prior documentation PREOP DIAGNOSIS: NSTEMI/ UAP PRIMARY INDICATION FOR PROCEDURE: ASHD PLANNED PROCEDURE: Operation Date: 12/31/21 07:00 Proposed Procedures p Cardiac Catheterization(Left) - Deonte Shah MD PATIENT REASSESSED PRIOR TO SEDATION, WITH NO CHANGE NOTED: Yes PHYSICAL EXAM: alert, oriented x 3, clear to auscultation bilaterally and regular rate & rhythm AIRWAY EVAL/ANESTHESIA PLAN: normal airway, see other exam findings, ASA II, ASA III, Risks, benefits & alternatives of sedation and/or procedure discussed and Patient agrees to continue as planned
--- NOTE | 2021-12-31 08:15 | P.PN_ITS ---
Subjective Subjective: The patient is feeling okay with no chest pain. No fever, chills or cough. The 6 hr troponin is still remaining elevated with a nonsignificant delta. No other specific complaints. Medications: Medication Review Details: Current Medications Acetaminophen (Acetaminophen 325 Mg Tablet) 650 mg PO Q6H PRN PRN Reason: Mild/Mod Pain Or Temp >/= 101 Allopurinol (Allopurinol 300 Mg Tablet) 300 mg PO BEDTIME PADMA Last Admin: 12/30/21 20:35 Dose: 300 mg Aspirin (Aspirin 81 Mg Ec Tablet) 81 mg PO BEDTIME PADMA Last Admin: 12/30/21 20:35 Dose: 81 mg Atorvastatin Calcium (Atorvastatin 40 Mg Tablet) 20 mg PO BEDTIME PADMA Last Admin: 12/30/21 20:35 Dose: 20 mg Dextrose (Dextrose 50% Syringe 50 Ml) 25 ml IVP ONCE PRN; Protocol PRN Reason: hypoglycemia protocol Dextrose (Dextrose 50% Syringe 50 Ml) 50 ml IVP PRN PRN; Protocol PRN Reason: hypoglycemia protocol Enoxaparin Sodium (Enoxaparin 80 Mg/0.8 Ml Syringe) 80 mg SUBCUT Q12H [facility] Last Admin: 12/31/21 05:33 Dose: Not Given Glucagon (Glucagon 1 Mg/Ml Inj 1 Ml) 1 mg IM ONCE PRN; Protocol PRN Reason: Adult Acute Hypoglycemia Prot. Ceftriaxone Sodium 1,000 mg/ (Sodium Chloride) 50 mls @ 100 mls/hr IV Q24H PADMA; Protocol Last Infusion: 12/30/21 13:22 Dose: Infused Dextrose (D5w) 500 mls @ 100 mls/hr IV ONCE PRN; Protocol PRN Reason: Adult Acute Hypoglycemia Prot Sodium Chloride (Sodium Chloride 0.9%) 1,000 mls @ 50 mls/hr IV .Q20H ONE Stop: 01/01/22 01:59 Last Admin: 12/31/21 05:33 Dose: 50 mls/hr Insulin Human Lispro (Insulin Lispro 100 Unit/1 Ml) 0 unit SUBCUT WM&BEDTIME [facility]; Protocol Last Admin: 12/30/21 21:04 Dose: 10 unit Levothyroxine Sodium (Levothyroxine 100 Mcg Tablet) 100 mcg PO DAILY [facility] Morphine Sulfate (Morphine 4 Mg/Ml Sdv 1 Ml) 2 mg IVP Q4H PRN PRN Reason: SEVERE PAIN Ondansetron HCl (Ondansetron 2 Mg/Ml Sdv 2 Ml) 4 mg IVP Q6H PRN PRN Reason: vomiting, or N/V if npo Pantoprazole Sodium (Pantoprazole Dr 40 Mg Tablet) 40 mg PO DAILY PADMA Vitals/I&O/Wt Last Vital Signs Temp 97.7 F 12/31/21 04:00 Pulse 98 12/31/21 06:00 Resp 22 H 12/31/21 04:00 BP 97/55 12/31/21 04:00 Pulse Ox 97 12/31/21 04:00 O2 Del Method 12/30/21 16:00 O2 Flow Rate 2 12/30/21 10:29 12/30/21 12/31/21 12/31/21 22:59 06:59 14:59 Intake Total 480 / 530 Balance 480 / 530 Weight last 48 hrs Weight 164 lb 6.4 oz Weight 173 lb Physical Exam Narrative: GENERAL: The patient is alert and oriented times three. Not in any acute distress. HEENT: No significant pallor, icterus or lymphadenopathy.Oral cavity: There are no mucous membrane lesions. NECK: Trachea appears to be central. No masses noted. No JVD or thyromegaly appreciated. RESPIRATORY: Chest is symmetrical. No intercostals muscle retraction or any accessory muscle activation. There is no chest wall tenderness. Breath sounds are heard bilaterally. No rales or rhonchi heard. No evidence of any consol idation. BREASTS: Deferred. HEART: Ejection systolic murmur of a grade 4/6 in the aortic area, transmitted to both carotids. No diastolic murmurs. Second is somewhat muffled. ABDOMEN: No vessel pulsations or distention. No tenderness. No organomegaly appreciated. Bowel sounds are normally heard. : Deferred. RECTAL: Deferred. LYMPHATIC: No lymphadenopathy noted in the neck. EXTREMITIES: The peripheral pulses are palpable but somewhat weak bilaterally. No cyanosis. No significant edema. MUSCULOSKELETAL: No acute joint deformities or swelling SKIN: There are no significant rashes or ecchymosis NEUROPSYCHIATRIC: The patient is alert and oriented x3. Appears to be in a good mood. No tremors or rigidity noted. Data : 12/31/21 05:11 12/31/21 05:11 Other Labs: Laboratory Last Values WBC 13.2 10^3/uL (4.0-10.0) H 12/31/21 05:11 RBC 4.11 10^6/uL (4.1-5.3) 12/31/21 05:11 Hgb 11.6 g/dL (11.5-15.3) 12/31/21 05:11 Hct 36.9 % (37.0-47.0) L 12/31/21 05:11 MCV 89.8 fl (81-99) D 12/31/21 05:11 MCH 28.2 pg (28.0-34.0) 12/31/21 05:11 MCHC 31.4 g/dL (30.0-36.0) 12/31/21 05:11 RDW 16.8 % (12.1-15.1) H 12/31/21 05:11 Plt Count 306 10^3/cmm (130-400) 12/31/21 05:11 MPV 10.4 fL (7.4-10.4) 12/31/21 05:11 Neut % (Auto) 86.8 % 12/31/21 05:11 Lymph % (Auto) 6.4 % 12/31/21 05:11 [place] % (Auto) 6.3 % 12/31/21 05:11 Eos % (Auto) 0.0 % 12/31/21 05:11 Baso % (Auto) 0.1 % 12/31/21 05:11 Neut # (Auto) 11.48 10^3/uL (1.8-7.7) H 12/31/21 05:11 Lymph # (Auto) 0.9 10^3/uL (0.8-4.8) 12/31/21 05:11 [place]ascade # (Auto) 0.8 10^3/uL (0.2-0.9) 12/31/21 05:11 Eos # (Auto) 0.0 10^3/uL (0.0-0.8) 12/31/21 05:11 Baso # (Auto) 0.0 10^3/uL (0.0-0.1) 12/31/21 05:11 Nucleated RBC % (auto) 0 % 12/31/21 05:11 Nucleated RBCs # 0.0 /100WBC 12/31/21 05:11 Sodium 135 mmol/L (136-145) L 12/31/21 05:11 Potassium 4.6 mmol/L (3.5-5.1) 12/31/21 05:11 Chloride 101 mmol/L (98-107) 12/31/21 05:11 Carbon Dioxide 19 mmol/L (22-29) L 12/31/21 05:11 Anion Gap 19.6 (5-19) H 12/31/21 05:11 BUN 21 mg/dL (8-23) 12/31/21 05:11 Creatinine 1.1 mg/dL (0.5-0.9) H 12/31/21 05:11 GFR Calculation Not Reportable 12/31/21 05:11 Glucose 164 mg/dL (65-115) H 12/31/21 05:11 POC Glucose 178 mg/dL (70-110) H 12/31/21 06:36 Calculated Osmolality 287 mOsm/kg (285-295) 12/31/21 05:11 Calcium 9.6 mg/dL (8.5-10.5) 12/31/21 05:11 Magnesium 2.0 mg/dL (1.7-2.3) 12/31/21 05:11 Total Bilirubin 0.5 mg/dL (0.15-1.2) 12/31/21 05:11 AST 11 U/L (0-32) 12/31/21 05:11 ALT 8 U/L (0-33) 12/31/21 05:11 Alkaline Phosphatase 61 U/L (35-105) 12/31/21 05:11 Troponin T Baseline 39 ng/L (0-10) H 12/30/21 10:15 Troponin T 120 Minute 38.90 ng/L (0-10) H 12/30/21 12:15 Delta Troponin T -0.10 ABS# (0-10) L 12/30/21 12:15 Troponin T Hi Sens 6Hr 43.76 ng/L (0-10) H 12/30/21 16:00 Troponin T Hi Sens 6Hr Delta 4.76 ng/L (0-12) 12/30/21 16:00 Total Protein 7.0 g/dL (6.6-8.7) 12/31/21 05:11 Albumin 3.3 g/dL (3.5-5.2) L 12/31/21 05:11 Globulin 3.7 g/dL (1.3-4.6) 12/31/21 05:11 TSH 0.07 uIU/mL (0.27-4.20) L 12/30/21 10:15 Urine Color Yellow (Yellow) 12/30/21 10:52 Urine Appearance Sl hazy (CLEAR) A 12/30/21 10:52 Urine pH 6.0 (5-7) 12/30/21 10:52 Ur Specific [place] >= 1.030 (1.005-1.030) 12/30/21 10:52 Urine Protein 2+ (Negative) A 12/30/21 10:52 Urine Glucose (UA) Negative (Normal) 12/30/21 10:52 Urine Ketones 1+ (Negative) A 12/30/21 10:52 Urine Blood Negative (Negative) 12/30/21 10:52 Urine Nitrate Positive 12/30/21 10:52 Urine Bilirubin Negative (Negative) 12/30/21 10:52 Urine Urobilinogen 0.2 mg/dL (Negative) 12/30/21 10:52 Ur Leukocyte Esterase 1+ 12/30/21 10:52 Urine RBC 0-4 /hpf (0-2) H 12/30/21 10:52 Urine WBC 25-40 /hpf (0-5) H 12/30/21 10:52 Ur Squamous Epith Cells 0-4 /hpf (0-5) H 12/30/21 10:52 Amorphous Sediment Not Reportable 12/30/21 10:52 Urine Bacteria 3+ /hpf (NONE) H 12/30/21 10:52 A&P Assessment and plan (1) 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 In view of the current symptoms, EKG, echocardiogram evidence of wall motion normalities, most likely she may have underlying coronary disease. For further evaluation of the coronary status, a cardiac catheterization would be appropriate. The risk of bleeding, hematoma, vascular injury, myocardial infarction, CVA, renal failure and other concomitant complications were explained in detail. Patient understood this well and consented to proceed. The patient is scheduled for the cardiac catheterization this morning. Based on the angiogram findings, further recommendations will be made. (2) Severe aortic valve stenosis: Most likely the patient requires aortic valve replacement. Based on the angiogram findings, further management decisions will be made. (3) Hyperlipidemia: Continue on the current medications (4) Diabetes mellitus: Continue on the current treatment as per Dr. Doherty Plan Other problems Iodide allergy- Leukocytosis, is improving. Patient is remaining afebrile. Patient underwent left heart catheterization with left and right coronary angiogram this morning. She was found to have a high-grade lesion in the mid LAD. The right coronary artery was found to be totally occluded with a severe diffuse disease proximally. Fairly good [id number] collaterals were noted. There was decided to do PCI of the LAD lesion. 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
--- NOTE | 2021-12-31 09:14 | P.PN_ITS ---
Subjective Subjective: Cristal underwent LAD stent this morning in the angiogram suite. She denies any chest discomfort. No significant pain currently. Not short of breath. Eating her breakfast. Medications: Reviewed: Yes Vitals/I&O/Wt Last Vital Signs Temp 97.7 F 12/31/21 04:00 Pulse 98 12/31/21 06:00 Resp 22 H 12/31/21 04:00 BP 97/55 12/31/21 04:00 Pulse Ox 97 12/31/21 04:00 O2 Del Method 12/30/21 16:00 O2 Flow Rate 2 12/30/21 10:29 12/30/21 12/31/21 12/31/21 22:59 06:59 14:59 Intake Total 480 / 530 Balance 480 / 530 Weight last 48 hrs Weight 74.571 kg Weight 78.471 kg Physical Exam Narrative: General exam no distress Neck is supple no lymphadenopathy or thyromegaly Cardiovascular tachycardic, regular, 3-4/6 systolic murmur heard best aortic area with radiation to apex Lungs clear no wheezing or crackles Abdomen is soft nontender positive bowel sounds. No obvious organomegaly. Right groin with no significant hematoma Extremities no cyanosis clubbing or edema, cap refill brisk Skin no rash Data : 12/31/21 05:11 12/31/21 05:11 A&P Assessment and plan (1) Chest pain: Concern on admission this may represent a non-ST elevation myocardial infarction. Initial troponin is elevated. EKG with changes were present, which seem to have improved over her emergency department course. However, considering her cancer history and patient also reported to me she may have had COVID with 3 to 4 days of fever around 4-1/2 weeks ago and loss of smell will need to rule out pulmonary embolism CTA of the chest demonstrated no pulmonary embolism Full dose anticoagulation was initiated Continue aspirin, statin. Increase statin dose Appreciate cardiology consultation. Angiogram done today demonstrated LAD lesion 95%. This was stented with drug-eluting stent. Echocardiogram demonstrated severe aortic stenosis, slightly low ejection fraction of 50% and moderate mitral regurgitation she will ultimately need refer red for aortic valve replacement as well. Continue Plavix Mild acute congestive heart failure, diastolic, appears improved. (2) Aortic stenosis: Severe aortic stenosis could lead to chest discomfort. Consider outpatient referral to surgery/interventional cardiology (3) UTI (urinary tract infection): Continue Rocephin 1 g IV every 24 hours. Await urine culture. (4) Diabetes mellitus: Continue sliding scale insulin (5) Hypothyroidism: She appears to be oversupplemented Thyroid hormone was reduced to 100 mcg Plan Hypertension. Hold HARDY inhibitor this morning. Blood pressure somewhat low Other medical problems as outlined in past medical history Full code currently Lovenox will be used for DVT prophylaxis Protonix for GI prophylaxis Attestations Medical Necessity Statement*: Needs continued hospital stay for close monitoring following LAD stenting Coding Level of Care Code Acute Commercial Loan Specialist for Chg Fwd Diagnoses Chest pain R07.9 Aortic stenosis I35.0 UTI (urinary tract infection) N39.0 Diabetes mellitus E11.9 Hypothyroidism E03.9
[2021-12-31 09:46] LABS: Glucose Point of Care 208 mg/dL (70-110)
[2021-12-31] MEDS: levothyroxine 100 mcg Tablet PO (09:55)
[2021-12-31] MEDS: pantoprazole DR 40 mg Tablet PO (09:55)
[2021-12-31] MEDS: insulin lispro 100 unit/1 mL SUBCUT ×4 (09:55→22:40)
--- NOTE | 2021-12-31 11:00 | PC.CHAP ---
Pastoral Care Encounter/Spiritual Assessment Type of Contact [] Declined clothes designer visit [] Patient/Family/Request visit [] Outpatient visit [] Follow-up visit [] Physician referral [] Code/Alert [x] Routine visit [] Staff referral [] Actively dying [] Patient sleeping [] Family support [] [] Out of room [] Palliative care [] [x] Receiving care in room [] Pre-surgical visit [] Trauma [x] Long length of stay [] ICU visit [] Other: Relational/Emotional Strength [] Patient feels connected with others/family/visitors/staff [x] Distress [] Loneliness/isolation [] Abandonment Spirituality of Patient [x] Person of Livia [] Attends Faith of their Livia [x] Believes in Prayer [] Reads Bible or Uatsdin materials [] There are Spiritual issues to be addressed Stave Cutter Interventions [x] Prayer [x] Active listening [x] Non-anxious presence [x] Spiritual/emotional support [] Crisis/trauma care [x] Spiritual counseling [] Bereavement support [] Provided bereavement packet [] Provided Bible/devotional materials [] Provided toy/stuffed animal, coloring book to patient or family member [] Provided Communion [] Anointing/[place] [] Salvation [x] Completed spiritual assessment [] Other: Impact on Illness or Injury [] Angry [] Fearful [x] Anxious [] Often cries [] Exhaustion [x] Unable to work [] Unable to attend druze [] Unable to walk/stand [] Unable to read [] Unable to drive [] Unable to eat/drink [] Unable to sleep [] Unable to be with family [] Patient intubated [] Other: Summary unable to communicat about her health has a good attitude well go home at some point Time spent with patient 10 mins
[2021-12-31 11:01] LABS: Glucose Point of Care 259 mg/dL (70-110)
[2021-12-31] MEDS: cefTRIAXone 1,000 MG in sodium chloride 0.9% (plus) 50 ML 100 MG IV (12:21)
[2021-12-31 12:50] LABS: Partial Thromboplastin Time 89.8 SECONDS (23.9-36.7)
[2021-12-31 15:13] LABS: Partial Thromboplastin Time 37.2 SECONDS (23.9-36.7)
--- NOTE | 2021-12-31 16:35 | PC.NURSE ---
Sheath from Right groin removed at this time after ptt less than 45 patient tolerated well no hematoma manual pressure held per protocol
[2021-12-31 17:02] LABS: Glucose Point of Care 272 mg/dL (70-110)
[2021-12-31] MEDS: atorvastatin 40 mg Tablet PO (20:06)
[2021-12-31] MEDS: aspirin 81 mg EC Tablet PO (20:06)
[2021-12-31] MEDS: allopurinol 300 mg Tablet PO (20:06)
[2021-12-31 21:36] LABS: Glucose Point of Care 349 mg/dL (70-110)
[2021-12-31] MEDS: enoxaparin 40 mg/0.4 mL Syringe SUBCUT (22:36)
[2022-01-01] VITALS (9 sets, daily range): BP systolic 95–125; BP diastolic 51–95; PULSE 78–124; RESP 15–18; TEMP 36.4–36.7; O2SAT 95–98
[2022-01-01 05:11] LABS: Basophils % 0.1 %; Hematocrit 35.9 % (37.0-47.0); Hemoglobin 10.8 g/dL (11.5-15.3); Lymphocytes # 1.1 10^3/uL (0.8-4.8); Lymphocytes % 5.8 %; Mean Corpuscular HGB Conc 30.1 g/dL (30.0-36.0); Mean Corpuscular Hemoglobin 27.9 pg (28.0-34.0); Mean Corpuscular Volume 92.8 fl (81-99); Mean Platelet Volume 10.8 fL (7.4-10.4); Monocytes # 1.2 10^3/uL (0.2-0.9); Monocytes % 6.5 %; Neutrophils # 16.24 10^3/uL (1.8-7.7); Neutrophils % 87.1 %; Nucleated Red Blood Cells % 0 %; Platelet Count 331 10^3/cmm (130-400); Red Blood Count 3.87 10^6/uL (4.1-5.3); Red Cell Distribution Width 16.8 % (12.1-15.1); White Blood Count 18.7 10^3/uL (4.0-10.0)
[2022-01-01 06:26] LABS: Anion Gap 20.8 (5-19); Blood Urea Nitrogen 47 mg/dL (8-23); Calcium 8.8 mg/dL (8.5-10.5); Carbon Dioxide 20 mmol/L (22-29); Chloride 98 mmol/L (98-107); Glucose 168 mg/dL (65-115); Osmolality Calculated 294 mOsm/kg (285-295); Potassium 4.8 mmol/L (3.5-5.1); Sodium 134 mmol/L (136-145)
[2022-01-01 08:47] LABS: Glucose Point of Care 178 mg/dL (70-110)
[2022-01-01] MEDS: levothyroxine 100 mcg Tablet PO (08:52)
[2022-01-01] MEDS: pantoprazole DR 40 mg Tablet PO (08:52)
[2022-01-01] MEDS: clopidogrel 75 mg Tablet PO (08:52)
[2022-01-01] MEDS: metoprolol tartrate 25 mg Tablet 12.5 MG PO ×2 (08:52→21:27)
[2022-01-01] MEDS: insulin lispro 100 unit/1 mL SUBCUT ×4 (08:54→21:27)
[2022-01-01] MEDS: sodium chloride 0.9% 1,000 ML 50 ML IV ×2 (08:54→23:30)
--- NOTE | 2022-01-01 09:03 | PC.NURSE ---
netting inspector at bedside with instructions to increase fluids to 75mls/hr
--- NOTE | 2022-01-01 09:52 | PM.PN ---
Subjective Subjective: Patient underwent a cardiac catheterization yesterday. She was found to have a high-grade lesion in the mid LAD. Right coronary artery was found to be totally occluded. She underwent PCI of the LAD lesion. Her BUN and creatinine went up today. She has no chest pain or shortness of breath. The vital signs remained stable. Medications: Medication Review Details: Current Medications Acetaminophen (Acetaminophen 325 Mg Tablet) 650 mg PO Q6H PRN PRN Reason: Mild/Mod Pain Or Temp >/= 101 Allopurinol (Allopurinol 300 Mg Tablet) 300 mg PO BEDTIME PADMA Last Admin: 12/31/21 20:06 Dose: 300 mg Aspirin (Aspirin 81 Mg Ec Tablet) 81 mg PO BEDTIME PADMA Last Admin: 12/31/21 20:06 Dose: 81 mg Atorvastatin Calcium (Atorvastatin 40 Mg Tablet) 40 mg PO BEDTIME PADMA Last Admin: 12/31/21 20:06 Dose: 40 mg Clopidogrel Bisulfate (Clopidogrel 75 Mg Tablet) 75 mg PO DAILY PADMA Last Admin: 01/01/22 08:52 Dose: 75 mg Dextrose (Dextrose 50% Syringe 50 Ml) 25 ml IVP ONCE PRN; Protocol PRN Reason: hypoglycemia protocol Dextrose (Dextrose 50% Syringe 50 Ml) 50 ml IVP PRN PRN; Protocol PRN Reason: hypoglycemia protocol Enoxaparin Sodium (Enoxaparin 40 Mg/0.4 Ml Syringe) 40 mg SUBCUT Q24H PADMA Last Admin: 12/31/21 22:36 Dose: 40 mg Glucagon (Glucagon 1 Mg/Ml Inj 1 Ml) 1 mg IM ONCE PRN; Protocol PRN Reason: Adult Acute Hypoglycemia Prot. Ceftriaxone Sodium 1,000 mg/ (Sodium Chloride) 50 mls @ 100 mls/hr IV Q24H PADMA; Protocol Last Infusion: 12/31/21 13:02 Dose: Infused Dextrose (D5w) 500 mls @ 100 mls/hr IV ONCE PRN; Protocol PRN Reason: Adult Acute Hypoglycemia Prot Sodium Chloride (Sodium Chloride 0.9%) 1,000 mls @ 75 mls/hr IV .[id number] PADMA Last Admin: 01/01/22 08:54 Dose: 50 mls/hr Insulin Human Lispro (Insulin Lispro 100 Unit/1 Ml) 0 unit SUBCUT WM&BEDTIME PADMA; Protocol Last Admin: 01/01/22 08:54 Dose: 2 unit Levothyroxine Sodium (Levothyroxine 100 Mcg Tablet) 100 mcg PO DAILY [facility] Last Admin: 01/01/22 08:52 Dose: 100 mcg Metoprolol Tartrate (Metoprolol Tartrate 25 Mg Tablet) 12.5 mg PO BID@0900,2100 [facility] Last Admin: 01/01/22 08:52 Dose: 12.5 mg Ondansetron HCl (Ondansetron 2 Mg/Ml Sdv 2 Ml) 4 mg IVP Q6H PRN PRN Reason: vomiting, or N/V if npo Pantoprazole Sodium (Pantoprazole Dr 40 Mg Tablet) 40 mg PO DAILY [facility] Last Admin: 01/01/22 08:52 Dose: 40 mg Vitals/I&O/Wt Last Vital Signs Temp 97.8 F 01/01/22 04:00 Pulse 124 H 01/01/22 08:00 Resp 18 01/01/22 08:00 BP 125/95 01/01/22 08:00 Pulse Ox 98 01/01/22 08:00 O2 Del Method 01/01/22 08:00 O2 Flow Rate 2 12/31/21 20:48 12/31/21 01/01/22 01/01/22 22:59 06:59 14:59 Intake Total 340 / 390 630 / 1020 1000 / 1000 Balance 340 / 390 630 / 1020 1000 / 1000 Weight last 48 hrs Weight 173 lb Weight 164 lb 6.4 oz Physical Exam Narrative: GENERAL: The patient is alert and oriented times three. Not in any acute distress. HEENT: No significant pallor, icterus or lymphadenopathy.Oral cavity: There are no mucous membrane lesions. NECK: Trachea appears to be central. No masses noted. No JVD or thyromegaly appreciated. RESPIRATORY: Chest is symmetrical. No intercostals muscle retraction or any accessory muscle activation. There is no chest wall tenderness. Breath sounds are heard bilaterally. No rales or rhonchi heard. No evidence of any consolidation. BREASTS: Deferred. HEART: The heart sounds are normal. No S3 or S4. No significant murmurs. No pericardial rub ABDOMEN: No vessel pulsations or distention. No tenderness. No organomegaly appreciated. Bowel sounds are normally heard. : Deferred. RECTAL: Deferred. LYMPHATIC: No lymphadenopathy noted in the neck. EXTREMITIES: No edema or cyanosis. No clubbing. The right groin has no hematoma or bleeding. MUSCULOSKELETAL: No acute joint deformities or swelling SKIN: There are no significant rashes or ecchymosis NEUROPSYCHIATRIC: The patient is alert and oriented x3. Appears to be in a good mood. No tremors or rigidity noted. Data : 01/01/22 04:11 01/01/22 04:11 Other Labs: Laboratory Last Values WBC 18.7 10^3/uL (4.0-10.0) H 01/01/22 04:11 RBC 3.87 10^6/uL (4.1-5.3) L 01/01/22 04:11 Hgb 10.8 g/dL (11.5-15.3) L 01/01/22 04:11 Hct 35.9 % (37.0-47.0) L 01/01/22 04:11 MCV 92.8 fl (81-99) 01/01/22 04:11 MCH 27.9 pg (28.0-34.0) L 01/01/22 04:11 MCHC 30.1 g/dL (30.0-36.0) 01/01/22 04:11 RDW 16.8 % (12.1-15.1) H 01/01/22 04:11 Plt Count 331 10^3/cmm (130-400) 01/01/22 04:11 MPV 10.8 fL (7.4-10.4) H 01/01/22 04:11 Neut % (Auto) 87.1 % 01/01/22 04:11 Lymph % (Auto) 5.8 % 01/01/22 04:11 Rains % (Auto) 6.5 % 01/01/22 04:11 Eos % (Auto) 0.0 % 01/01/22 04:11 Baso % (Auto) 0.1 % 01/01/22 04:11 Neut # (Auto) 16.24 10^3/uL (1.8-7.7) H 01/01/22 04:11 Lymph # (Auto) 1.1 10^3/uL (0.8-4.8) 01/01/22 04:11 Rains # (Auto) 1.2 10^3/uL (0.2-0.9) H 01/01/22 04:11 Eos # (Auto) 0.0 10^3/uL (0.0-0.8) 01/01/22 04:11 Baso # (Auto) 0.0 10^3/uL (0.0-0.1) 01/01/22 04:11 Nucleated RBC % (auto) 0 % 01/01/22 04:11 Nucleated RBCs # 0.0 /100WBC 01/01/22 04:11 APTT 37.2 SECONDS (23.9-36.7) H D 12/31/21 14:45 Sodium 134 mmol/L (136-145) L 01/01/22 04:11 Potassium 4.8 mmol/L (3.5-5.1) 01/01/22 04:11 Chloride 98 mmol/L (98-107) 01/01/22 04:11 Carbon Dioxide 20 mmol/L (22-29) L 01/01/22 04:11 Anion Gap 20.8 (5-19) H 01/01/22 04:11 BUN 47 mg/dL (8-23) H 01/01/22 04:11 Creatinine 1.5 mg/dL (0.5-0.9) H 01/01/22 04:11 GFR Calculation Not Reportable 01/01/22 04:11 Glucose 168 mg/dL (65-115) H 01/01/22 04:11 POC Glucose 178 mg/dL (70-110) H 01/01/22 08:43 Calculated Osmolality 294 mOsm/kg (285-295) 01/01/22 04:11 Calcium 8.8 mg/dL (8.5-10.5) 01/01/22 04:11 Magnesium 2.0 mg/dL (1.7-2.3) 12/31/21 05:11 Total Bilirubin 0.5 mg/dL (0.15-1.2) 12/31/21 05:11 AST 11 U/L (0-32) 12/31/21 05:11 ALT 8 U/L (0-33) 12/31/21 05:11 Alkaline Phosphatase 61 U/L (35-105) 12/31/21 05:11 Troponin T Baseline 39 ng/L (0-10) H 12/30/21 10:15 Troponin T 120 Minute 38.90 ng/L (0-10) H 12/30/21 12:15 Delta Troponin T -0.10 ABS# (0-10) L 12/30/21 12:15 Troponin T Hi Sens 6Hr 43.76 ng/L (0-10) H 12/30/21 16:00 Troponin T Hi Sens 6Hr Delta 4.76 ng/L (0-12) 12/30/21 16:00 Total Protein 7.0 g/dL (6.6-8.7) 12/31/21 05:11 Albumin 3.3 g/dL (3.5-5.2) L 12/31/21 05:11 Globulin 3.7 g/dL (1.3-4.6) 12/31/21 05:11 TSH 0.07 uIU/mL (0.27-4.20) L 12/30/21 10:15 Urine Color Yellow (Yellow) 12/30/21 10:52 Urine Appearance Sl hazy (CLEAR) A 12/30/21 10:52 Urine pH 6.0 (5-7) 12/30/21 10:52 Ur Specific [place] >= 1.030 (1.005-1.030) 12/30/21 10:52 Urine Protein 2+ (Negative) A 12/30/21 10:52 Urine Glucose (UA) Negative (Normal) 12/30/21 10:52 Urine Ketones 1+ (Negative) A 12/30/21 10:52 Urine Blood Negative (Negative) 12/30/21 10:52 Urine Nitrate Positive 12/30/21 10:52 Urine Bilirubin Negative (Negative) 12/30/21 10:52 Urine Urobilinogen 0.2 mg/dL (Negative) 12/30/21 10:52 Ur Leukocyte Esterase 1+ 12/30/21 10:52 Urine RBC 0-4 /hpf (0-2) H 12/30/21 10:52 Urine WBC 25-40 /hpf (0-5) H 12/30/21 10:52 Ur Squamous Epith Cells 0-4 /hpf (0-5) H 12/30/21 10:52 Amorphous Sediment Not Reportable 12/30/21 10:52 Urine Bacteria 3+ /hpf (NONE) H 12/30/21 10:52 Micro: Microbiology 12/30/21 10:52 Urine Culture - Preliminary Urine,Clean Catch Gram Negative Rods A&P Assessment and plan (1) Atherosclerotic heart disease of [place] coronary artery with unstable angina pectoris: The angiogram revealed total occlusion of the right coronary artery with fairly good [id number] collaterals. High-grade lesion in the mid LAD for which she underwent PCI. Currently she seems to be doing okay. We will continue the aspirin and Plavix in addition to the other current medications. (2) Severe aortic valve stenosis: Patient may benefit from aortic valve replacement. We may wait for a month or so before proceeding with the valve intervention. We will make a referral to the heavy duty diesel mechanic in [place]. (3) Hyperlipidemia: May continue on the current medications. (4) Diabetes mellitus: Continue on the current management. (5) Acute kidney injury: Her BUN/creatinine was found to be elevated. We will continue the IV hydration and repeat BMP this afternoon. Based on the findings, further Plan If the patient continues remain stable with improvement of the BUN/creatinine, may be discharged home this afternoon. Attestations Medical Necessity Statement*: Patient requires continued hospital stay for close monitoring and further management Coding Level of Care Code Acute Tool Setter Apprentice for Marc Lopez Diagnoses Atherosclerotic heart disease of [place] coronary artery with unstable angina pectoris I25.110 Severe aortic valve stenosis I35.0 Hyperlipidemia E78.5 Diabetes mellitus E11.9 Acute kidney injury N17.9
[2022-01-01 11:29] LABS: Glucose Point of Care 261 mg/dL (70-110)
[2022-01-01] MEDS: cefTRIAXone 1,000 MG in sodium chloride 0.9% (plus) 50 ML 100 MG IV (12:49)
[2022-01-01 13:59] LABS: Anion Gap 20.7 (5-19); Blood Urea Nitrogen 55 mg/dL (8-23); Calcium 8.5 mg/dL (8.5-10.5); Carbon Dioxide 18 mmol/L (22-29); Chloride 98 mmol/L (98-107); Glucose 220 mg/dL (65-115); Osmolality Calculated 296 mOsm/kg (285-295); Potassium 4.7 mmol/L (3.5-5.1); Sodium 132 mmol/L (136-145)
--- NOTE | 2022-01-01 14:07 | PM.PN ---
Subjective Subjective: Cristal reports no complaints. No chest pain. Not short of breath. Medications: Reviewed: Yes Vitals/I&O/Wt Last Vital Signs Temp 97.8 F 01/01/22 04:00 Pulse 87 01/01/22 11:00 Resp 18 01/01/22 11:00 BP 109/65 01/01/22 11:00 Pulse Ox 97 01/01/22 11:00 O2 Del Method 01/01/22 11:00 O2 Flow Rate 2 12/31/21 20:48 12/31/21 01/01/22 01/01/22 22:59 06:59 14:59 Intake Total 340 / 390 630 / 1020 1050 / 1050 Balance 340 / 390 630 / 1020 1050 / 1050 Weight last 48 hrs Weight 78.471 kg Physical Exam Narrative: General exam no distress Neck is supple no lymphadenopathy or thyromegaly Cardiovascular tachycardic, regular, 3-4/6 systolic murmur heard best aortic area with radiation to apex Lungs clear no wheezing or crackles Abdomen is soft nontender positive bowel sounds. No obvious organomegaly. Right groin with no significant hematoma Extremities no cyanosis clubbing or edema, cap refill brisk Skin no rash Data : 01/01/22 04:11 01/01/22 13:23 Micro: Microbiology 12/30/21 10:52 Urine Culture - Preliminary Urine,Clean Catch Gram Negative Rods A&P Assessment and plan (1) Chest pain: Concern on admission this may represent a non-ST elevation myocardial infarction. Initial troponin is elevated. EKG with changes were present, which seem to have improved over her emergency department course. However, considering her cancer history and patient also reported to me she may have had COVID with 3 to 4 days of fever around 4-1/2 weeks ago and loss of smell will need to rule out pulmonary embolism CTA of the chest demonstrated no pulmonary embolism Full dose anticoagulation was initiated Continue aspirin, statin. Increase statin dose Appreciate cardiology consultation. Angiogram done today demonstrated LAD lesion 95%. This was stented with drug-eluting stent on December 31 Echocardiogram demonstrated severe aortic stenosis, slightly low ejection fraction of 50% and moderate mitral regurgitation she will ultimately need referred for aortic valve replacement as well. Continue Plavix Mild acute congestive heart failure, diastolic, appears improved. Low-dose beta-abel initiated (2) Aortic stenosis: Severe aortic stenosis could lead to chest discomfort. Consider outpatient referral to surgery/interventional cardiology (3) UTI (urinary tract infection): Continue Rocephin 1 g IV every 24 hours. Await urine culture. White blood cell count is elevated but this is likely secondary to steroid given for dye allergy. I expect this to decrease by tomorrow. (4) Diabetes mellitus: Continue sliding scale insulin (5) Hypothyroidism: She appears to be oversupplemented Thyroid hormone was reduced to 100 mcg (6) Acute kidney injury: This is presented following radiological dye. Continue hydration Repeat creatinine tomorrow Avoid renal toxic medication HARDY inhibitor was discontinued December 31 Plan Hypertension. Hold HARDY inhibitor this morning. Blood pressure somewhat low Other medical problems as outlined in past medical history Full code currently Lovenox will be used for DVT prophylaxis. 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
[2022-01-01 17:07] LABS: Glucose Point of Care 145 mg/dL (70-110)
[2022-01-01] MEDS: enoxaparin 30 mg/0.3 mL Syringe SUBCUT (17:45)
[2022-01-01 21:21] LABS: Glucose Point of Care 175 mg/dL (70-110)
[2022-01-01] MEDS: allopurinol 300 mg Tablet PO (21:27)
[2022-01-01] MEDS: atorvastatin 40 mg Tablet PO (21:27)
[2022-01-01] MEDS: aspirin 81 mg EC Tablet PO (21:27)
[2022-01-02] VITALS (9 sets, daily range): BP systolic 92–127; BP diastolic 54–89; PULSE 76–109; RESP 15–19; TEMP 36.4–36.8; O2SAT 94–97
[2022-01-02 05:12] LABS: Basophils % 0.2 %; Eosinophils # 0.1 10^3/uL (0.0-0.8); Eosinophils % 0.8 %; Hematocrit 33.1 % (37.0-47.0); Hemoglobin 10.1 g/dL (11.5-15.3); Lymphocytes # 2.4 10^3/uL (0.8-4.8); Lymphocytes % 18.2 %; Mean Corpuscular HGB Conc 30.5 g/dL (30.0-36.0); Mean Corpuscular Volume 91.7 fl (81-99); Mean Platelet Volume 10.9 fL (7.4-10.4); Monocytes # 0.9 10^3/uL (0.2-0.9); Neutrophils # 9.71 10^3/uL (1.8-7.7); Neutrophils % 73.4 %; Nucleated Red Blood Cells % 0 %; Platelet Count 281 10^3/cmm (130-400); Red Blood Count 3.61 10^6/uL (4.1-5.3); Red Cell Distribution Width 16.6 % (12.1-15.1); White Blood Count 13.2 10^3/uL (4.0-10.0)
[2022-01-02 05:31] LABS: Anion Gap 17.3 (5-19); Blood Urea Nitrogen 64 mg/dL (8-23); Calcium 8.3 mg/dL (8.5-10.5); Carbon Dioxide 18 mmol/L (22-29); Chloride 100 mmol/L (98-107); Glucose 140 mg/dL (65-115); Osmolality Calculated 293 mOsm/kg (285-295); Potassium 4.3 mmol/L (3.5-5.1); Sodium 131 mmol/L (136-145)
[2022-01-02 06:17] LABS: Glucose Point of Care 157 mg/dL (70-110)
[2022-01-02] MEDS: pantoprazole DR 40 mg Tablet PO (08:09)
[2022-01-02] MEDS: metoprolol tartrate 25 mg Tablet 12.5 MG PO ×2 (08:09→20:26)
[2022-01-02] MEDS: clopidogrel 75 mg Tablet PO (08:09)
[2022-01-02] MEDS: levothyroxine 100 mcg Tablet PO (08:09)
--- NOTE | 2022-01-02 08:33 | P.PN_ITS ---
Subjective Subjective: Patient is feeling well. No chest pain. Vitals/I&O/Wt Last Vital Signs Temp 98.2 F 01/02/22 07:14 Pulse 83 01/02/22 07:14 Resp 18 01/02/22 07:14 BP 127/89 01/02/22 07:14 Pulse Ox 96 01/02/22 07:14 O2 Del Method 01/02/22 07:14 O2 Flow Rate 2 12/31/21 20:48 01/01/22 01/02/22 01/02/22 22:59 06:59 14:59 Intake Total 1283.333 / 2573.333 Balance 1283.333 / 2573.333 Weight last 48 hrs Weight 179 lb 14.4 oz Weight 173 lb Physical Exam Narrative: GENERAL: Patient is alert, awake and oriented x3. [] NECK: No jugular vein distension. [] HEENT: No cyanosis. No icterus. No pallor. [] HEART: Regular S1 and S2. No murmur, rub or gallop. [] LUNGS: Clear to auscultate bilaterally. [] CENTRAL NERVOUS SYSTEM: Grossly nonfocal. [] EXTREMITIES: Lower extremities with 1+ edema bilaterally. Pulses palpable in the lower extremities, both dorsalis pedis and posterior tibial. [] Data : 01/02/22 03:58 01/03/22 03:40 Micro: Microbiology 12/30/21 10:52 Urine Culture - Final Urine,Clean Catch Escherichia coli A&P Assessment and plan (1) Atherosclerotic heart disease of [place] coronary artery with unstable angina pectoris: S/p PCI of mid LAD with PATRICIA x1. Overall doing well. Continue aspirin and Plavix. (2) Severe aortic valve stenosis: Patient will be referred for valve replacement in [place] (3) Hyperlipidemia: May continue on the current medications. (4) Diabetes mellitus: Continue on the current management. (5) Acute kidney injury: Secondary to contrast-induced nephropathy. Continue gentle IV hydration. Creatinine has stabilized today. Plan Patient creatinine has stabilized. If I am close by tomorrow, can be discharged tomorrow Attestations Medical Necessity Statement*: Care expected to cross 2 midnights. Coding Level of Care Code Acute Quality Analyst/Technical Writer for Marc Lopez Diagnoses Atherosclerotic heart disease of [place] coronary artery with unstable angina pectoris I25.110 Severe aortic valve stenosis I35.0 Hyperlipidemia E78.5 Diabetes mellitus E11.9 Acute kidney injury N17.9
--- NOTE | 2022-01-02 09:49 | PC.SOCIAL ---
Pg 2 IMM Explained to pt Pg 2 IMM. No questions voiced. Provided pt a copy. Initialed, dated, & timed a copy & placed in chart.
[2022-01-02] MEDS: insulin lispro 100 unit/1 mL SUBCUT ×4 (09:54→21:46)
[2022-01-02 11:21] LABS: Glucose Point of Care 212 mg/dL (70-110)
[2022-01-02] MEDS: cefTRIAXone 1,000 MG in sodium chloride 0.9% (plus) 50 ML 100 MG IV (12:50)
[2022-01-02] MEDS: sodium chloride 0.9% 1,000 ML 30 ML IV (12:55)
--- NOTE | 2022-01-02 16:04 | P.PN_ITS ---
Subjective Subjective: She states she is doing very well. She denies any chest pain recurrence. She is breathing well. Denies any pain, swelling, or other trouble at access site in the right groin. Discussed with her regarding additional creatinine rise this morning. Vitals/I&O/Wt Last Vital Signs Temp 98.2 F 01/02/22 15:07 Pulse 92 01/02/22 15:07 Resp 18 01/02/22 15:07 BP 113/75 01/02/22 15:07 Pulse Ox 97 01/02/22 15:07 O2 Del Method 01/02/22 15:07 O2 Flow Rate 2 12/31/21 20:48 01/02/22 01/02/22 01/02/22 06:59 14:59 22:59 Intake Total 1283.333 / 2573.333 1526.667 / 1526.667 Balance 1283.333 / 2573.333 1526.667 / 1526.667 Weight last 48 hrs Weight 81.601 kg Weight 78.471 kg Physical Exam Narrative: He is awake, alert, pleasant, conversant. In good spirits. Const: COMMON NORMALS: patient oriented x3 and alert GENERAL APPEARANCE: cooperative NUTRITIONAL APPEARANCE: overweight ORIENTATION/CONSCIOUSNESS: Yes awake HENMT: COMMON NORMALS: oropharynx normal Neck/C-Spine: COMMON NORMALS: no JVD Resp: COMMON NORMALS: normal respiratory effort and clear to auscultation bilaterally AUSCULTATION: clear to auscultation bilaterally Cardio: COMMON NORMALS: no JVD, regular rhythm, S1 normal heart sound present, S2 normal heart sound present and No murmurs present (Cardio) RHYTHM: regular rhythm HEART SOUNDS: S1 normal heart sound present and S2 normal heart sound present GI: COMMON NORMALS: Normal to inspection, nondistended, normoactive bowel sounds present, Soft to palpation and non-tender PALPATION: Yes Soft to palpation Extremity: COMMON NORMALS: no joint enlargement and no pedal edema OTHER: Right groin access site minimal bruise, no swelling, no pulsatile mass. Neuro: COMMON NORMALS: patient oriented x3 and moves all extremities SENSORIUM/ORIENTATION: Yes alert Skin: COMMON NORMALS: no rashes or lesions noted GENERAL SKIN EXAM: no rashes or lesions noted Data : 01/02/22 03:58 01/02/22 03:58 Micro: Microbiology 12/30/21 10:52 Urine Culture - Final Urine,Clean Catch Escherichia coli A&P Assessment and plan (1) Acute kidney injury: Additional increase in creatinine up to 2, BUN up to 64. Continue lower rate gentle IV fluid challenge. Oral intake as tolerating. Reassess renal function. This is presented following radiological dye. HARDY inhibitor was discontinued December 31 (2) Chest pain: With NSTEMI additionally assessed by cardiac catheterization, found to have high-grade lesion in mid LAD. RCA ZIGZAGGER. Underwent PCI to LAD. CTA of the chest demonstrated no pulmonary embolism Continue aspirin, Plavix, beta-abel, statin. Echocardiogram demonstrated severe aortic stenosis, slightly low ejection fraction of 50% and moderate mitral regurgitation she will ultimately need referred for aortic valve replacement as well. Mild acute congestive heart failure, diastolic, appears improved. (3) Aortic stenosis: Consider outpatient referral to surgery/interventional cardiology (4) UTI (urinary tract infection): Continue Rocephin 1 g IV every 24 hours. Pansensitive E. coli on urine culture. White blood cell count is elevated but this is likely secondary to steroid given for dye allergy. Decreasing. (5) Diabetes mellitus: Continue sliding scale insulin (6) Hypothyroidism: She appears to be oversupplemented Thyroid hormone was reduced to 100 mcg Plan Hypertension. Hold HARDY inhibitor this morning. Blood pressure somewhat low Other medical problems as outlined in past medical history Full code currently Lovenox will be used for DVT prophylaxis. Reduced to 30 mg secondary to kidney dysfunction Attestations Medical Necessity Statement*: Continue admission for assessment management of acute kidney injury, possible contrast-induced nephropathy. Coding Level of Care Code Acute Power And Recovery Superintendent for [facility] Fwd Exam Comprehensive Diagnoses Acute kidney injury N17.9 Chest pain R07.9 Aortic stenosis I35.0 UTI (urinary tract infection) N39.0 Diabetes mellitus E11.9 Hypothyroidism E03.9
[2022-01-02] MEDS: enoxaparin 30 mg/0.3 mL Syringe SUBCUT (16:59)
[2022-01-02 17:05] LABS: Glucose Point of Care 192 mg/dL (70-110)
[2022-01-02] MEDS: aspirin 81 mg EC Tablet PO (20:25)
[2022-01-02] MEDS: allopurinol 300 mg Tablet PO (20:25)
[2022-01-02] MEDS: atorvastatin 40 mg Tablet PO (20:26)
[2022-01-02 21:43] LABS: Glucose Point of Care 269 mg/dL (70-110)
[2022-01-03] VITALS (10 sets, daily range): BP systolic 122–138; BP diastolic 65–80; PULSE 74–96; RESP 16–24; TEMP 36.4–37.2; O2SAT 95–99
[2022-01-03 04:42] LABS: Anion Gap 16.2 (5-19); Blood Urea Nitrogen 62 mg/dL (8-23); Calcium 8.3 mg/dL (8.5-10.5); Carbon Dioxide 18 mmol/L (22-29); Chloride 107 mmol/L (98-107); Glucose 99 mg/dL (65-115); Osmolality Calculated 302 mOsm/kg (285-295); Potassium 4.2 mmol/L (3.5-5.1); Sodium 137 mmol/L (136-145)
[2022-01-03 06:05] LABS: Glucose Point of Care 130 mg/dL (70-110)
--- NOTE | 2022-01-03 07:45 | PC.NURSE ---
notified doctors Informed Dr Park and Dr Chen on pt's 5 sec sinus pause noted on Tele 01/02/22 at around 2 pm and afib w/rvr HR in 110s to 120s. pt is more short of breath when talking. oxygen remains stable on room air. Received orders to get 12 lead ekg, hold metoprolol and stopped IVF.
[2022-01-03] MEDS: clopidogrel 75 mg Tablet PO (08:39)
[2022-01-03] MEDS: levothyroxine 100 mcg Tablet PO (08:39)
[2022-01-03] MEDS: pantoprazole DR 40 mg Tablet PO (08:39)
--- NOTE | 2022-01-03 09:09 | ECG_ITS ---
[facility] Test Date: 2022-01-03 Pat Name: Cristal Gonzalez Department: Room: 277 Gender: Female Foot Tender: : 1940 Requested By: Wilmar Park Order Number: [id number] Nehemiah MD: Marvin Chen M.D. Measurements Intervals [place] Rate: 106 P: UT: QRS: 38 QRSD: 98 T: 230 QT: 338 QTc: 449 Interpretive Statements ATRIAL FIBRILLATION WITH RAPID VENTRICULAR RESPONSE MODERATE VOLTAGE CRITERIA FOR LVH, CONSIDER NORMAL VARIANT [MEETS CRITERIA IN ONE OF: R(aVL), S(V1), R(V5), R(V5/V6)+S(V1)] ST DEVIATION AND MODERATE T-WAVE ABNORMALITY, CONSIDER LATERAL ISCHEMIA [-0.1+ mV T-WAVE IN I/aVL/V5/V6] ST DEVIATION AND MODERATE T-WAVE ABNORMALITY, CONSIDER INFERIOR ISCHEMIA [-0.1+ mV T-WAVE IN II/aVF] Compared to ECG 12/30/2021 16:45:53 T-wave abnormality now present Possible ischemia now present Sinus tachycardia no longer present ST (T wave) deviation no longer present Electronically Signed On 01-03-2022 22:05:38 CDT by Marvin Chen M.D. [id number]
--- NOTE | 2022-01-03 09:30 | P.PN_ITS ---
Subjective Subjective: Patient is overall stable. She has been staying in afib with RVR. Had a pause of about 4.5 seconds yesterday afternoon. Did not feel any symptoms with it. Vitals/I&O/Wt Last Vital Signs Temp 97.6 F 01/03/22 07:36 Pulse 86 01/03/22 07:36 Resp 16 01/03/22 07:40 BP 132/65 01/03/22 07:36 Pulse Ox 98 01/03/22 07:40 O2 Del Method 01/03/22 07:40 O2 Flow Rate 2 12/31/21 20:48 01/02/22 01/03/22 01/03/22 22:59 06:59 14:59 Intake Total 240 / 1766.667 650 / 2416.667 Balance 240 / 1766.667 650 / 2416.667 Weight last 48 hrs Weight 180 lb 3.2 oz Weight 179 lb 14.4 oz Physical Exam Narrative: GENERAL: Patient is alert, awake and oriented x3. [] NECK: No jugular vein distension. [] HEENT: No cyanosis. No icterus. No pallor. [] HEART: Regular S1 and S2. No murmur, rub or gallop. [] LUNGS: Clear to auscultate bilaterally. [] CENTRAL NERVOUS SYSTEM: Grossly nonfocal. [] EXTREMITIES: Lower extremities with 1+ edema bilaterally. Pulses palpable in the lower extremities, both dorsalis pedis and posterior tibial. [] Data : 01/02/22 03:58 01/03/22 03:40 A&P Assessment and plan (1) Atherosclerotic heart disease of [place] coronary artery with unstable angina pectoris: S/p PCI of mid LAD with PATRICIA x1. Overall doing well. Continue aspirin and Plavix. (2) Severe aortic valve stenosis: Patient will be referred for valve replacement in [place] (3) Hyperlipidemia: May continue on the current medications. (4) Diabetes mellitus: Continue on the current management. (5) Acute kidney injury: Secondary to contrast-induced nephropathy. Creatinine has been improving. Per patient had good urine output. (6) Paroxysmal atrial fibrillation with RVR: It is new onset. Patient had a pause of 4.5 seconds yesterday. She may have sick sinus syndrome and may require pacemaker. We will start amiodarone gtt. Also has been started on Lovenox. Will be on therapeutic dose Plan Patient creatinine has stabilized. If I am close by tomorrow, can be discharged tomorrow Attestations Medical Necessity Statement*: Care expected to cross 2 midnights. Coding Level of Care Code Acute Habilitation Training Specialist for Marc Lopez Diagnoses Atherosclerotic heart disease of [place] coronary artery with unstable angina pectoris I25.110 Severe aortic valve stenosis I35.0 Hyperlipidemia E78.5 Diabetes mellitus E11.9 Acute kidney injury N17.9 Paroxysmal atrial fibrillation with RVR I48.0
[2022-01-03] MEDS: cefTRIAXone 1,000 MG in sodium chloride 0.9% (plus) 50 ML 100 MG IV (11:44)
[2022-01-03 12:24] LABS: Glucose Point of Care 228 mg/dL (70-110)
[2022-01-03] MEDS: insulin lispro 100 unit/1 mL SUBCUT ×3 (12:29→21:12)
[2022-01-03] MEDS: enoxaparin 80 mg/0.8 mL Syringe SUBCUT (13:34)
--- NOTE | 2022-01-03 15:19 | PM.PN ---
Subjective Subjective: Has not had any further chest pain or pressure. No trouble with exercise in the right groin. Noted to have a 4.5-second pause around 3 PM yesterday, today noted a new atrial fibrillation. She otherwise denies shortness of breath, has been getting up to the restroom. Does not remember having symptoms with noted pause. Vitals/I&O/Wt Last Vital Signs Temp 98.1 F 01/03/22 11:49 Pulse 96 01/03/22 11:49 Resp 18 01/03/22 11:49 BP 133/65 01/03/22 11:49 Pulse Ox 98 01/03/22 11:49 O2 Del Method 01/03/22 11:49 O2 Flow Rate 2 12/31/21 20:48 01/03/22 01/03/22 01/03/22 06:59 14:59 22:59 Intake Total 650 / 2416.667 629 / 629 Balance 650 / 2416.667 629 / 629 Weight last 48 hrs Weight 81.737 kg Weight 81.601 kg Physical Exam Narrative: She is awake, alert, pleasant, conversant. In good spirits. Family at bedside. Const: COMMON NORMALS: patient oriented x3 and alert GENERAL APPEARANCE: cooperative NUTRITIONAL APPEARANCE: overweight ORIENTATION/CONSCIOUSNESS: Yes awake HENMT: COMMON NORMALS: oropharynx normal Neck/C-Spine: COMMON NORMALS: no JVD Resp: COMMON NORMALS: normal respiratory effort and clear to auscultation bilaterally AUSCULTATION: clear to auscultation bilaterally Cardio: COMMON NORMALS: no JVD, regular rhythm, S1 normal heart sound present, S2 normal heart sound present and No murmurs present (Cardio) RHYTHM: regular rhythm HEART SOUNDS: S1 normal heart sound present and S2 normal heart sound present GI: COMMON NORMALS: Normal to inspection, nondistended, normoactive bowel sounds present, Soft to palpation and non-tender PALPATION: Yes Soft to palpation Extremity: COMMON NORMALS: no joint enlargement and no pedal edema Neuro: COMMON NORMALS: patient oriented x3 and moves all extremities SENSORIUM/ORIENTATION: Yes alert Skin: COMMON NORMALS: no rashes or lesions noted GENERAL SKIN EXAM: no rashes or lesions noted Data : 01/02/22 03:58 01/03/22 03:40 A&P Assessment and plan (1) Sinus pause: Noted on telemetry 4.5-second pause followed by several shorter pauses on 01/02 around 3 PM. She does not appear to have been symptomatic, although is noted to also have new atrial fibrillation currently with RVR. Appreciate cardiology recommendations. Continue cardiac monitoring. Consideration may be needed for pacemaker. In that case Lovenox will need to be held. (2) New onset a-fib: (3) Paroxysmal atrial fibrillation with RVR: Noted new atrial fibrillation, heart rates 1 teens-120s. Discussed with cardiology, with aortic stenosis concern is for decompensation in case of persistent tachycardia requesting amiodarone drip, okay with bolus, anticoagulation okay with Lovenox. Renal function has been improving. Please reassess renal function, Lovenox may need to be adjusted in case of changes. (4) Acute kidney injury: Improving, creatinine down to 1.5 Stop IVF. Oral intake as tolerating. Reassess renal function. This is presented following radiological dye. HARDY inhibitor was discontinued December 31 (5) Chest pain: Resolved. With NSTEMI additionally assessed by cardiac catheterization, found to have high-grade lesion in mid LAD. RCA MARKETING PROJECT COORDINATOR. Underwent PCI to LAD. CTA of the chest demonstrated no pulmonary embolism Continue aspirin, Plavix, beta-abel, statin. Echocardiogram demonstrated severe aortic stenosis, slightly low ejection fraction of 50% and moderate mitral regurgitation she will ultimately need referred for aortic valve replacement as well. Mild acute congestive heart failure, diastolic, appears improved. (6) Aortic stenosis: Consider outpatient referral to surgery/interventional cardiology (7) UTI (urinary tract infection): Continue Rocephin 1 g IV every 24 hours. Pansensitive E. coli on urine culture. White blood cell count is elevated but this is likely secondary to steroid given for dye allergy. Decreasing. (8) Diabetes mellitus: Continue sliding scale insulin (9) Hypothyroidism: She appears to be oversupplemented Thyroid hormone was reduced to 100 mcg Plan Hypertension. Hold HARDY inhibitor this morning. Blood pressure somewhat low Other medical problems as outlined in past medical history Full code currently Lovenox will be used for DVT prophylaxis. Reduced to 30 mg secondary to kidney dysfunction Attestations Medical Necessity Statement*: Continue admission for assessment of management of cardiac pause, possible sick sinus syndrome, new A. fib with RVR in setting of severe aortic stenosis, MARE[place]. Coding Level of Care Code Acute Machine Operator Picker for Marc Lopez Diagnoses Sinus pause I45.5 New onset a-fib I48.91 Paroxysmal atrial fibrillation with RVR I48.0 Acute kidney injury N17.9 Chest pain R07.9 Aortic stenosis I35.0 UTI (urinary tract infection) N39.0 Diabetes mellitus E11.9 Hypothyroidism E03.9
[2022-01-03 17:20] LABS: Glucose Point of Care 175 mg/dL (70-110)
[2022-01-03] MEDS: aspirin 81 mg EC Tablet PO (20:27)
[2022-01-03] MEDS: atorvastatin 40 mg Tablet PO (20:27)
[2022-01-03] MEDS: allopurinol 300 mg Tablet PO (20:27)
[2022-01-03 21:02] LABS: Glucose Point of Care 190 mg/dL (70-110)
[2022-01-04] VITALS: BP 112/55; PULSE 78; RESP 23; TEMP 36.6; O2SAT 97
[2022-01-04] MEDS: enoxaparin 80 mg/0.8 mL Syringe SUBCUT (00:24)
[2022-01-04 04:00] VITALS: BP 118/71; PULSE 85; RESP 23; TEMP 36.6; O2SAT 96
[2022-01-04 04:16] LABS: Basophils % 0.4 %; Eosinophils # 0.2 10^3/uL (0.0-0.8); Eosinophils % 1.9 %; Hematocrit 33.3 % (37.0-47.0); Lymphocytes # 1.4 10^3/uL (0.8-4.8); Lymphocytes % 14.7 %; Mean Corpuscular Hemoglobin 27.6 pg (28.0-34.0); Mean Platelet Volume 11.3 fL (7.4-10.4); Monocytes % 10.5 %; Neutrophils # 6.95 10^3/uL (1.8-7.7); Neutrophils % 72.1 %; Nucleated Red Blood Cells % 0 %; Platelet Count 261 10^3/cmm (130-400); Red Blood Count 3.62 10^6/uL (4.1-5.3); Red Cell Distribution Width 16.7 % (12.1-15.1); White Blood Count 9.6 10^3/uL (4.0-10.0)
[2022-01-04 04:36] LABS: Anion Gap 17.3 (5-19); Blood Urea Nitrogen 48 mg/dL (8-23); Calcium 8.4 mg/dL (8.5-10.5); Carbon Dioxide 17 mmol/L (22-29); Chloride 106 mmol/L (98-107); Glucose 162 mg/dL (65-115); Osmolality Calculated 298 mOsm/kg (285-295); Potassium 4.3 mmol/L (3.5-5.1); Sodium 136 mmol/L (136-145)
[2022-01-04 06:00] VITALS: PULSE 80
[2022-01-04 06:29] LABS: Glucose Point of Care 187 mg/dL (70-110)
[2022-01-04 07:51] VITALS: BP 145/101; PULSE 113; RESP 18; TEMP 36.7; O2SAT 94
[2022-01-04 08:16] VITALS: BP 135/99
[2022-01-04] MEDS: pantoprazole DR 40 mg Tablet PO (08:21)
[2022-01-04] MEDS: levothyroxine 100 mcg Tablet PO (08:21)
[2022-01-04] MEDS: clopidogrel 75 mg Tablet PO (08:21)
[2022-01-04] MEDS: insulin lispro 100 unit/1 mL SUBCUT ×2 (08:21→12:04)
--- NOTE | 2022-01-04 08:58 | P.PN_ITS ---
Subjective Subjective: The patient apparently developed acute kidney injury following the angiogram. Her kidney function is returning back to the baseline. She also was found to be atrial fibrillation with rapid ventricular rate. She was started on IV amiodarone. She is in sinus rhythm now. She was found to have a 4-second pause on the monitor on 02 January. She also had some brief episodes of bradycardia lasting for few seconds. The heart rate was in the 40s at that time. Currently she is back into sinus rhythm. Heart rate stays in the 80s and 90s, most of the times. She denies any fever, chills or cough. No other specific complaints. Medications: Medication Review Details: Current Medications Acetaminophen (Acetaminophen 325 Mg Tablet) 650 mg PO Q6H PRN PRN Reason: Mild/Mod Pain Or Temp >/= 101 Allopurinol (Allopurinol 300 Mg Tablet) 300 mg PO BEDTIME PADMA Last Admin: 01/03/22 20:27 Dose: 300 mg Amlodipine Besylate (Amlodipine 10 Mg Tablet) 10 mg PO DAILY [facility] Aspirin (Aspirin 81 Mg Ec Tablet) 81 mg PO BEDTIME PADMA Last Admin: 01/03/22 20:27 Dose: 81 mg Atorvastatin Calcium (Atorvastatin 40 Mg Tablet) 40 mg PO BEDTIME PADMA Last Admin: 01/03/22 20:27 Dose: 40 mg Clopidogrel Bisulfate (Clopidogrel 75 Mg Tablet) 75 mg PO DAILY [facility] Last Admin: 01/04/22 08:21 Dose: 75 mg Dextrose (Dextrose 50% Syringe 50 Ml) 25 ml IVP ONCE PRN; Protocol PRN Reason: hypoglycemia protocol Dextrose (Dextrose 50% Syringe 50 Ml) 50 ml IVP PRN PRN; Protocol PRN Reason: hypoglycemia protocol Enoxaparin Sodium (Enoxaparin 80 Mg/0.8 Ml Syringe) 80 mg SUBCUT Q12H [facility] Last Admin: 01/04/22 00:24 Dose: 80 mg Glucagon (Glucagon 1 Mg/Ml Inj 1 Ml) 1 mg IM ONCE PRN; Protocol PRN Reason: Adult Acute Hypoglycemia Prot. Ceftriaxone Sodium 1,000 mg/ (Sodium Chloride) 50 mls @ 100 mls/hr IV Q24H PADMA; Protocol Last Infusion: 01/03/22 12:31 Dose: Infused Dextrose (D5w) 500 mls @ 100 mls/hr IV ONCE PRN; Protocol PRN Reason: Adult Acute Hypoglycemia Prot Amiodarone HCl 900 mg/Dextrose/ IV Miscellaneous Supplies 518 mls @ 0 mls/hr IV .Q0M [facility]; Protocol Last Titration: 01/03/22 19:08 Dose: 0.5 mg/min, 17.27 mls/hr Insulin Human Lispro (Insulin Lispro 100 Unit/1 Ml) 0 unit SUBCUT WM&BEDTIME [facility]; Protocol Last Admin: 01/04/22 08:21 Dose: 4 unit Levothyroxine Sodium (Levothyroxine 100 Mcg Tablet) 100 mcg PO DAILY [facility] Last Admin: 01/04/22 08:21 Dose: 100 mcg Metoprolol Tartrate (Metoprolol Tartrate 25 Mg Tablet) 12.5 mg PO BID@0900,2100 [facility] Last Admin: 01/03/22 10:39 Dose: Not Given Ondansetron HCl (Ondansetron 2 Mg/Ml Sdv 2 Ml) 4 mg IVP Q6H PRN PRN Reason: vomiting, or N/V if npo Pantoprazole Sodium (Pantoprazole Dr 40 Mg Tablet) 40 mg PO DAILY [facility] Last Admin: 01/04/22 08:21 Dose: 40 mg Vitals/I&O/Wt Last Vital Signs Temp 98.0 F 01/04/22 07:51 Pulse 113 H 01/04/22 07:51 Resp 18 01/04/22 07:51 BP 135/99 01/04/22 08:16 Pulse Ox 94 01/04/22 07:51 O2 Del Method 01/04/22 07:51 O2 Flow Rate 2 12/31/21 20:48 01/03/22 01/04/22 01/04/22 22:59 06:59 14:59 Intake Total 1947.868 / 2576.868 150 / 2726.868 Balance 1947.868 / 2576.868 150 / 2726.868 Weight last 48 hrs Weight 181 lb Weight 180 lb 3.2 oz Physical Exam Narrative: GENERAL: The patient is alert and oriented times three. Not in any acute distress. HEENT: No significant pallor, icterus or lymphadenopathy.Oral cavity: There are no mucous membrane lesions. NECK: Trachea appears to be central. No masses noted. No JVD or thyromegaly appreciated. RESPIRATORY: Chest is symmetrical. No intercostals muscle retraction or any accessory muscle activation. There is no chest wall tenderness. Breath sounds are heard bilaterally. No rales or rhonchi heard. No evidence of any consolidation. BREASTS: Deferred. HEART: The heart sounds are normal. No S3 or S4. No significant murmurs. No pericardial rub ABDOMEN: No vessel pulsations or distention. No tenderness. No organomegaly appreciated. Bowel sounds are normally heard. : Deferred. RECTAL: Deferred. LYMPHATIC: No lymphadenopathy noted in the neck. EXTREMITIES: Trace edema with no cyanosis. Radial arterial puncture site has no hematoma bleeding. MUSCULOSKELETAL: No acute joint deformities or swelling SKIN: There are no significant rashes or ecchymosis NEUROPSYCHIATRIC: The patient is alert and oriented x3. Appears to be in a good mood. No tremors or rigidity noted. Data : 01/04/22 03:23 01/04/22 03:23 Other Labs: Laboratory Last Values WBC 9.6 10^3/uL (4.0-10.0) 01/04/22 03: RBC 3.62 10^6/uL (4.1-5.3) L 01/04/22 03:23 Hgb 10.0 g/dL (11.5-15.3) L 01/04/22 03:23 Hct 33.3 % (37.0-47.0) L 01/04/22 03:23 MCV 92.0 fl (81-99) 01/04/22 03:23 MCH 27.6 pg (28.0-34.0) L 01/04/22 03: MCHC 30.0 g/dL (30.0-36.0) 01/04/22 03: RDW 16.7 % (12.1-15.1) H 01/04/22 03:23 Plt Count 261 10^3/cmm (130-400) 01/04/22 03:23 MPV 11.3 fL (7.4-10.4) H 01/04/22 03: Neut % (Auto) 72.1 % 01/04/22 03:23 Lymph % (Auto) 14.7 % 01/04/22 03:23 Cecil % (Auto) 10.5 % 01/04/22 03: Eos % (Auto) 1.9 % 01/04/22 03: Baso % (Auto) 0.4 % 01/04/22 03:23 Neut # (Auto) 6.95 10^3/uL (1.8-7.7) 01/04/22 03:23 Lymph # (Auto) 1.4 10^3/uL (0.8-4.8) 01/04/22 03:23 Cecil # (Auto) 1.0 10^3/uL (0.2-0.9) H 01/04/22 03:23 Eos # (Auto) 0.2 10^3/uL (0.0-0.8) 01/04/22 03:23 Baso # (Auto) 0.0 10^3/uL (0.0-0.1) 01/04/22 03:23 Nucleated RBC % (auto) 0 % 01/04/22 03: Nucleated RBCs # 0.0 /100WBC 01/04/22 03:23 APTT 37.2 SECONDS (23.9-36.7) H D 12/31/21 14:45 Sodium 136 mmol/L (136-145) 01/04/22 03:23 Potassium 4.3 mmol/L (3.5-5.1) 01/04/22 03:23 Chloride 106 mmol/L (98-107) 01/04/22 03:23 Carbon Dioxide 17 mmol/L (22-29) L 01/04/22 03:23 Anion Gap 17.3 (5-19) 01/04/22 03:23 BUN 48 mg/dL (8-23) H 01/04/22 03:23 Creatinine 1.3 mg/dL (0.5-0.9) H 01/04/22 03:23 GFR Calculation Not Reportable 01/04/22 03:23 Glucose 162 mg/dL (65-115) H 01/04/22 03:23 POC Glucose 187 mg/dL (70-110) H 01/04/22 06:16 Calculated Osmolality 298 mOsm/kg (285-295) H 01/04/22 03:23 Calcium 8.4 mg/dL (8.5-10.5) L 01/04/22 03:23 Magnesium 2.0 mg/dL (1.7-2.3) 01/04/22 03:23 Total Bilirubin 0.5 mg/dL (0.15-1.2) 12/31/21 05:11 AST 11 U/L (0-32) 12/31/21 05:11 ALT 8 U/L (0-33) 12/31/21 05:11 Alkaline Phosphatase 61 U/L (35-105) 12/31/21 05:11 Troponin T Baseline 39 ng/L (0-10) H 12/30/21 10:15 Troponin T 120 Minute 38.90 ng/L (0-10) H 12/30/21 12:15 Delta Troponin T -0.10 ABS# (0-10) L 12/30/21 12:15 Troponin T Hi Sens 6Hr 43.76 ng/L (0-10) H 12/30/21 16:00 Troponin T Hi Sens 6Hr Delta 4.76 ng/L (0-12) 12/30/21 16:00 Total Protein 7.0 g/dL (6.6-8.7) 12/31/21 05:11 Albumin 3.3 g/dL (3.5-5.2) L 12/31/21 05:11 Globulin 3.7 g/dL (1.3-4.6) 12/31/21 05:11 TSH 0.07 uIU/mL (0.27-4.20) L 12/30/21 10:15 Urine Color Yellow (Yellow) 12/30/21 10:52 Urine Appearance Sl hazy (CLEAR) A 12/30/21 10:52 Urine pH 6.0 (5-7) 12/30/21 10:52 Ur Specific [place] >= 1.030 (1.005-1.030) 12/30/21 10:52 Urine Protein 2+ (Negative) A 12/30/21 10:52 Urine Glucose (UA) Negative (Normal) 12/30/21 10:52 Urine Ketones 1+ (Negative) A 12/30/21 10:52 Urine Blood Negative (Negative) 12/30/21 10:52 Urine Nitrate Positive 12/30/21 10:52 Urine Bilirubin Negative (Negative) 12/30/21 10:52 Urine Urobilinogen 0.2 mg/dL (Negative) 12/30/21 10:52 Ur Leukocyte Esterase 1+ 12/30/21 10:52 Urine RBC 0-4 /hpf (0-2) H 12/30/21 10:52 Urine WBC 25-40 /hpf (0-5) H 12/30/21 10:52 Ur Squamous Epith Cells 0-4 /hpf (0-5) H 12/30/21 10:52 Amorphous Sediment Not Reportable 12/30/21 10:52 Urine Bacteria 3+ /hpf (NONE) H 12/30/21 10:52 A&P Assessment and plan (1) Paroxysmal atrial fibrillation with RVR: Patient had episodes of atrial fibrillation with rapid ventricular rate on the monitor. She is on IV amiodarone. She will be started on p.o. amiodarone 400 mg p.o. twice daily. She had a 4.5-second pause on the monitor on the first. Has not had any recurrence. At this point, she may be continued on monitoring. If she continues to remain stable, may be discharged home on amiodarone and Eliquis. She also may go home with an event monitor. (2) Atherosclerotic heart disease of [place] coronary artery with unstable angina pectoris: The angiogram revealed total occlusion of the right coronary artery with fairly good [id number] collaterals. High-grade lesion in the mid LAD for which she underwent PCI. Currently she seems to be doing okay. We will continue Plavix with Eliquis. Because of the anemia, and advanced age, may hold off on aspirin. (3) Acute kidney injury: The BUN/creatinine levels are coming down. Continue the hydration, cautiously. (4) Severe aortic valve stenosis: Patient may benefit from aortic valve replacement. I will be contacting the [facility] buckle assembler at the [facility] to evaluate her for TAVR. (5) Hyperlipidemia: May continue on the current medications. (6) Diabetes mellitus: Continue on the current management. Plan Discussed with Dr. Small. If the patient continues remain stable, may be discharged home from a cardiac standpoint. Need to be seen at the [facility] 1 week by the nurse practitioner We will make arrangements to be seen by parking patroller for the possible TAVR in [place]. May go home with an event monitor Will be continuing on a tapering dose of amiodarone as follows Amiodarone 400 mg p.o. twice daily for 5 days followed by Amiodarone 400 mg p.o. daily for 1 week followed by Amiodarone 200 mg daily. Appointment with me in the office in 1 month Attestations Medical Necessity Statement*: Possible discharge home today Coding Level of Care Code Acute Consumer Science Teacher for Chg Fwd History Expanded Problem Focused Exam Detailed Medical Decision Making Moderate Complexity Diagnoses Paroxysmal atrial fibrillation with RVR I48.0 Atherosclerotic heart disease of [place] coronary artery with unstable angina pectoris I25.110 Acute kidney injury N17.9 Severe aortic valve stenosis I35.0 Hyperlipidemia E78.5 Diabetes mellitus E11.9
[2022-01-04] MEDS: amlodipine 10 mg Tablet PO (10:14)
[2022-01-04] MEDS: amiodarone 200 mg Tablet 400 MG PO (10:14)
[2022-01-04 10:52] VITALS: BP 159/83; PULSE 107; RESP 20; TEMP 36.6; O2SAT 99
[2022-01-04 11:53] LABS: Glucose Point of Care 195 mg/dL (70-110)
[2022-01-04] MEDS: cefTRIAXone 1,000 MG in sodium chloride 0.9% (plus) 50 ML 100 MG IV (12:03)
[2022-01-04] MEDS: apixaban 5 mg Tablet PO (12:03)
--- NOTE | 2022-01-04 12:18 | PC.NURSE ---
Pt back in afib rate in the . Dr. Small notified, no new orders, continue to monitor
--- NOTE | 2022-01-04 12:59 | PM.DCS ---
Discharge Providers Date of Admission: 12/30/21 13:46 Date of Discharge: January 04, 2022 Attending Provider at Admission: Anant Doherty MD Attending Provider at Discharge: Bishop Small MD Primary Care Provider: Mason Perea MD Diagnoses at Discharge Discharge Diagnosis (1) Paroxysmal atrial fibrillation with RVR: Status: Acute (2) Atherosclerotic heart disease of [place] coronary artery with unstable angina pectoris: Status: Acute (3) Acute kidney injury: Status: Acute (4) Severe aortic valve stenosis: Status: Acute (5) Hyperlipidemia: Status: Acute (6) Diabetes mellitus: Status: Acute Reason for Visit Reason for Visit: sore in chest Hospital Course Hospital Course This is a 81-year-old female with past medical history of breast cancer, type 2 diabetes mellitus, hyperlipidemia, hypertension, hypothyroidism, aortic stenosis who presents [facility] for chest discomfort Patient was admitted to [facility] for chest discomfort, found to have NSTEMI, underwent cardiac catheterization, found to have a high-grade lesion in the mid LAD, underwent PCI to LAD. Also found to have RCA SOCIAL MEDIA INTERN. Managed on Plavix, statin clinically did well. Patient also found to have paroxysmal A. fib with RVR, managed initially with beta-blockers, but due to sinus pauses beta-blockers had to be discontinued. Managed with amiodarone drip, clinically did well, transition to p.o. amiodarone. Patient will be discharged on amiodarone taper, Eliquis for stroke prophylaxis, follow-up with cardiology in 1 week. Patient was advised if she develops bloody or black stools or any falls go to emergency room. Patient also had mild anemia during the hospitalization, she is on Plavix and statin, and she is 81 years old. No overt signs of bloody or black stools, nonetheless I discharged on Protonix 40 twice daily, Carafate twice daily, have her follow-up with primary care provider in 1 week for recheck CBC if she were develop any bloody or black stools go to emergency room She also has aortic stenosis, follow-up with cardiology as outpatient for referral for TAVR She also had a E. coli UTI finished antibiotic therapy as inpatient Physical Exam Const: COMMON NORMALS: no acute distress and patient oriented x3 Resp: COMMON NORMALS: normal respiratory effort, No retractions, No use of accessory muscles and clear to auscultation bilaterally AUSCULTATION: clear to auscultation bilaterally Cardio: COMMON NORMALS: S1 normal heart sound present and S2 normal heart sound present RHYTHM: abnormal rhythm irregularly irregular HEART SOUNDS: S1 normal heart sound present and S2 normal heart sound present GI: COMMON NORMALS: Normal to inspection, nondistended, normoactive bowel sounds present, non-tender, no masses and no bruits Extremity: COMMON NORMALS: no pedal edema Neuro: COMMON NORMALS: patient oriented x3 Psych: COMMON NORMALS: mental status grossly normal Discharge Data Studies Completed and Pending Completed Studies During Hospitalization Category Date Time Status CTA chest [CT angio chest PE protcl [id number]] Stat Cat Scan 12/30/21 11:22 Completed DOUBLE END PRODUCTION GRINDER request for service Routine Exams 12/31/21 07:00 Completed XR chest 1V portable [id number] Stat Exams 12/30/21 08:45 Completed CV. echo complete* [id number] Urgent Ultrasound 12/30/21 11:26 Completed Pending at discharge Category Date Time Status Basic Metabolic Panel AM LABS Lab 01/05/22 04:00 Ordered Complete Blood Count w/Auto AM LABS Lab 01/05/22 04:00 Ordered Complete Blood Count w/Auto AM LABS Lab 01/06/22 04:00 Ordered Radiology Impressions Chest X-Ray 12/30/21 08:45 IMPRESSION: 1. No acute cardiopulmonary finding. Chest CTA 12/30/21 11:22 IMPRESSION: 1. No pulmonary embolism. 2. Cholelithiasis without acute cholecystitis. 3. Small bilateral pleural effusions, LEFT greater than RIGHT. 4. Mild pulmonary edema. 5. Severe coronary artery atherosclerosis. 6. Prior LEFT mastectomy. Laboratory Results WBC 9.6 10^3/uL (4.0-10.0) 01/04/22 03:23 RBC 3.62 10^6/uL (4.1-5.3) L 01/04/22 03:23 Hgb 10.0 g/dL (11.5-15.3) L 01/04/22 03:23 Hct 33.3 % (37.0-47.0) L 01/04/22 03:23 MCV 92.0 fl (81-99) 01/04/22 03:23 MCH 27.6 pg (28.0-34.0) L 01/04/22 03:23 MCHC 30.0 g/dL (30.0-36.0) 01/04/22 03: RDW 16.7 % (12.1-15.1) H 01/04/22 03:23 Plt Count 261 10^3/cmm (130-400) 01/04/22 03:23 MPV 11.3 fL (7.4-10.4) H 01/04/22 03:23 Neut % (Auto) 72.1 % 01/04/22 03:23 Lymph % (Auto) 14.7 % 01/04/22 03:23 [place] % (Auto) 10.5 % 01/04/22 03:23 Eos % (Auto) 1.9 % 01/04/22 03:23 Baso % (Auto) 0.4 % 01/04/22 03:23 Neut # (Auto) 6.95 10^3/uL (1.8-7.7) 01/04/22 03:23 Lymph # (Auto) 1.4 10^3/uL (0.8-4.8) 01/04/22 03:23 [place] # (Auto) 1.0 10^3/uL (0.2-0.9) H 01/04/22 03:23 Eos # (Auto) 0.2 10^3/uL (0.0-0.8) 01/04/22 03:23 Baso # (Auto) 0.0 10^3/uL (0.0-0.1) 01/04/22 03:23 Nucleated RBC % (auto) 0 % 01/04/22 03:23 Nucleated RBCs # 0.0 /100WBC 01/04/22 03:23 APTT 37.2 SECONDS (23.9-36.7) H D 12/31/21 14:45 Sodium 136 mmol/L (136-145) 01/04/22 03:23 Potassium 4.3 mmol/L (3.5-5.1) 01/04/22 03:23 Chloride 106 mmol/L (98-107) 01/04/22 03:23 Carbon Dioxide 17 mmol/L (22-29) L 01/04/22 03:23 Anion Gap 17.3 (5-19) 01/04/22 03:23 BUN 48 mg/dL (8-23) H 01/04/22 03:23 Creatinine 1.3 mg/dL (0.5-0.9) H 01/04/22 03:23 GFR Calculation Not Reportable 01/04/22 03:23 Glucose 162 mg/dL (65-115) H 01/04/22 03:23 POC Glucose 195 mg/dL (70-110) H 01/04/22 11:42 Calculated Osmolality 298 mOsm/kg (285-295) H 01/04/22 03:23 Calcium 8.4 mg/dL (8.5-10.5) L 01/04/22 03:23 Magnesium 2.0 mg/dL (1.7-2.3) 01/04/22 03:23 Total Bilirubin 0.5 mg/dL (0.15-1.2) 12/31/21 05:11 AST 11 U/L (0-32) 12/31/21 05:11 ALT 8 U/L (0-33) 12/31/21 05:11 Alkaline Phosphatase 61 U/L (35-105) 12/31/21 05:11 Troponin T Baseline 39 ng/L (0-10) H 12/30/21 10:15 Troponin T 120 Minute 38.90 ng/L (0-10) H 12/30/21 12:15 Delta Troponin T -0.10 ABS# (0-10) L 12/30/21 12:15 Troponin T Hi Sens 6Hr 43.76 ng/L (0-10) H 12/30/21 16:00 Troponin T Hi Sens 6Hr Delta 4.76 ng/L (0-12) 12/30/21 16:00 Total Protein 7.0 g/dL (6.6-8.7) 12/31/21 05:11 Albumin 3.3 g/dL (3.5-5.2) L 12/31/21 05:11 Globulin 3.7 g/dL (1.3-4.6) 12/31/21 05:11 TSH 0.07 uIU/mL (0.27-4.20) L 12/30/21 10:15 Urine Color Yellow (Yellow) 12/30/21 10:52 Urine Appearance Sl hazy (CLEAR) A 12/30/21 10:52 Urine pH 6.0 (5-7) 12/30/21 10:52 Ur Specific [place] >= 1.030 (1.005-1.030) 12/30/21 10:52 Urine Protein 2+ (Negative) A 12/30/21 10:52 Urine Glucose (UA) Negative (Normal) 12/30/21 10:52 Urine Ketones 1+ (Negative) A 12/30/21 10:52 Urine Blood Negative (Negative) 12/30/21 10:52 Urine Nitrate Positive 12/30/21 10:52 Urine Bilirubin Negative (Negative) 12/30/21 10:52 Urine Urobilinogen 0.2 mg/dL (Negative) 12/30/21 10:52 Ur Leukocyte Esterase 1+ 12/30/21 10:52 Urine RBC 0-4 /hpf (0-2) H 12/30/21 10:52 Urine WBC 25-40 /hpf (0-5) H 12/30/21 10:52 Ur Squamous Epith Cells 0-4 /hpf (0-5) H 12/30/21 10:52 Amorphous Sediment Not Reportable 12/30/21 10:52 Urine Bacteria 3+ /hpf (NONE) H 12/30/21 10:52 Vitals Last Vital Signs Temp 97.8 F 01/04/22 10:52 Pulse 107 H 01/04/22 10:52 Resp 20 H 01/04/22 10:52 BP 159/83 01/04/22 10:52 Pulse Ox 99 01/04/22 10:52 O2 Del Method 01/04/22 10:52 O2 Flow Rate 2 12/31/21 20:48 Discharge Plan Discharge Patient Disposition: Home Condition: Stable Prescriptions: New atorvastatin 40 mg Tablet 40 mg PO BEDTIME 30 Days Qty: 30 0RF clopidogrel 75 mg Tablet 75 mg PO DAILY 30 Days Qty: 30 0RF amlodipine 10 mg Tablet 10 mg PO DAILY 30 Days Qty: 30 0RF levothyroxine [Levoxyl] 100 mcg Tablet 100 mcg PO DAILY 30 Days Qty: 30 0RF pantoprazole 40 mg Tablet,Delayed Release (Dr/Ec) 40 mg PO BIDWM 30 Days Qty: 60 0RF amiodarone [Pacerone] 200 mg Tablet See Rx Instructions .ROUTE .COMPLEX 30 Days Qty: 120 0RF Rx Instructions: 400 mg twice a day for 5days, followed by 200 mg twice a day for 5days, then 200 mg once a day Eliquis 5 mg Tablet 5 mg PO Q12H 30 Days Qty: 30 0RF sucralfate [Carafate] 1 gram tablet 1 g PO BID 30 Days Qty: 60 0RF Continued metformin 500 mg tablet 500 mg PO BID anastrozole 1 mg tablet 1 mg PO BEDTIME Fish Oil Concentrate 1,000 mg Capsule 1,000 mg PO DAILY Calcium 500 500 mg calcium (1,250 mg) Tablet 500 mg PO DAILY allopurinol 300 mg tablet 300 mg PO BEDTIME Vitamin D3 10 mcg (400 unit) Tablet 800 unit PO DAILY PreserVision AREDS-2 250-90-40-1 mg Capsule 1 tab PO BID Discontinued lisinopril 20 mg tablet 20 mg PO QAM Aspir-81 81 mg Tablet,Delayed Release (Dr/Ec) 81 mg PO BEDTIME levothyroxine 125 mcg tablet 125 mcg PO QAM lovastatin 20 mg tablet 20 mg PO BEDTIME Discharge Orders: Discharge Order (Routine); Ordered 01/04/22 Ordered By: Bishop Small Other Ambulatory Orders: MCT/Event Monitor 30 Days (Routine) Timeframe: 1 Month Facility: [facility] - Location: Radiology Ordered By: Deonte Shah DME: Ramiro (Order) Location: None Selected Ordered By: Bishop Small Referrals: Mason Perea MD [Primary Care Provider] - 1-3 days Deonte Shah MD [Physician] - 1 month Cher Lynn FNP [Nurse Practitioner] - 1 week Discharge Diet: Cardiac Discharge Activity: Resume usual activity Patient Instructions: Apixaban (By mouth) (Eliquis), GI Bleeding, A-fib (Atrial Fibrillation) (DC), Coronary Angioplasty (DC), Opioid Safety Activity Restrictions/Additional Instructions: - For your PCI of your heart artery, please take Plavix -For your atrial fibrillation please take Eliquis twice a day -For atrial fibrillation please take amiodarone 400 mg twice a day for 5 days, followed by 200 mg twice a day for 1 week, followed by 200 mg once a day -If you develop bloody or black stools please call 911 and go to the emergency room -If you develop a significant follow-up please go to the emergency room -Please follow-up with cardiology in 1 week -Follow-up with primary care provider in 1 week -If you feel lightheaded or dizziness please come back to emergency room Discharge Attestations Time Spent in Discharge Care*: less than 30 min Quality Metrics Clinical Quality Measures [ No reported AMI, CVA or VTE this stay] Coding Level of Care Code Acute Chg FW DC note Diagnoses Paroxysmal atrial fibrillation with RVR I48.0 Atherosclerotic heart disease of [place] coronary artery with unstable angina pectoris I25.110 Acute kidney injury N17.9 Severe aortic valve stenosis I35.0 Hyperlipidemia E78.5 Diabetes mellitus E11.9
== END 2022-01-04 16:30 | disposition home or self-care (01) | DRG 246 ==
LOC: ER 09:10 → MEDSURG 13:31
PROVIDERS: Internal Medicine; Internal Medicine Cardiovascular Disease; Admitting Provider Internal Medicine; Emergency Provider Family Medicine; PCP Family Medicine; Visit Provider Family Medicine
PROC: 027034Z Dilation of Coronary Artery, One Artery with Drug-eluting Intraluminal Device, Percutaneous Approach (ICD-10-PCS; principal; 2021-12-31 07:00)
DX: I21.4 Non-ST elevation (NSTEMI) myocardial infarction (principal); I50.31 Acute diastolic (congestive) heart failure; N39.0 Urinary tract infection, site not specified; N17.8 Other acute kidney failure; I25.110 Atherosclerotic heart disease of native coronary artery with unstable angina pectoris; Z90.12 Acquired absence of left breast and nipple; I08.3 Combined rheumatic disorders of mitral, aortic and tricuspid valves; C50.912 Malignant neoplasm of unspecified site of left female breast; M10.9 Gout, unspecified; E11.9 Type 2 diabetes mellitus without complications; I11.0 Hypertensive heart disease with heart failure; E89.0 Postprocedural hypothyroidism; B96.20 Unspecified Escherichia coli [E. coli] as the cause of diseases classified elsewhere; E78.5 Hyperlipidemia, unspecified; Z79.811 Long term (current) use of aromatase inhibitors; Z79.84 Long term (current) use of oral hypoglycemic drugs; I49.5 Sick sinus syndrome; I48.0 Paroxysmal atrial fibrillation; N14.11 Contrast-induced nephropathy; T50.8X5A Adverse effect of diagnostic agents, initial encounter; Z82.49 Family history of ischemic heart disease and other diseases of the circulatory system
CPT/HCPCS: 36415; 36416; 71045; 71275; 80048; 80053; 81001; 82962; 83735; 84443; 84484; 85025; 85347; 85730; 87077; 87086; 87186; 93005; 93306; 93454; 96360; 96365; 96372; 96375; 97116; 97161; 99152; 99153; 99285; C1725; C1769; C1874; C1887; C1894; C9600; J0282; J0696; J1200; J1644; J1650; J1815; J1940; J2250; J2920; J2930; J3010; J3490; J7030; J7060; Q0163; Q9967

== ENCOUNTER → 2022-01-11 10:23 | Outpatient (BNVA) | payer MEDICARE, OTHER, SELFPAY | PROVIDERS: PCP Nurse Practitioner Family; Visit Provider Nurse Practitioner Family | DX: I48.0 Paroxysmal atrial fibrillation (principal); Z79.01 Long term (current) use of anticoagulants; I25.110 Atherosclerotic heart disease of native coronary artery with unstable angina pectoris; I10 Essential (primary) hypertension; R00.1 Bradycardia, unspecified; R94.31 Abnormal electrocardiogram [ECG] [EKG] | CPT/HCPCS: 36415; 80048; 93005; 99214 ==

== ENCOUNTER → 2022-03-08 10:59 | Outpatient (BNVA) | payer MEDICARE, OTHER, SELFPAY | PROVIDERS: PCP Nurse Practitioner Family; Visit Provider Internal Medicine Cardiovascular Disease | DX: I48.0 Paroxysmal atrial fibrillation (principal); Z79.01 Long term (current) use of anticoagulants; I10 Essential (primary) hypertension; I35.0 Nonrheumatic aortic (valve) stenosis; I25.110 Atherosclerotic heart disease of native coronary artery with unstable angina pectoris; E78.5 Hyperlipidemia, unspecified; E11.9 Type 2 diabetes mellitus without complications; Z79.84 Long term (current) use of oral hypoglycemic drugs; K86.89 Other specified diseases of pancreas | CPT/HCPCS: 99213 ==

== ENCOUNTER 2022-04-01 18:27 | Inpatient (IN) | payer MEDICARE, OTHER, SELFPAY ==
[2022-04-01 18:51] VITALS: BP 127/75; PULSE 91; RESP 18; TEMP 36.3; O2SAT 88; BMI 28.6
--- NOTE | 2022-04-01 18:57 | ECG_ITS ---
[facility] Test Date: 2022-04-01 Pat Name: Cristal Gonzalez Department: Room: Gender: Female Multifocal Button Grinder: : 1940 Requested By: Juan C Bacon Order Number: [id number] Nehemiah MD: Deonte Shah M.D. Measurements Intervals [place] Rate: 91 P: 0 [place]: 0 QRS: 61 QRSD: 98 T: -51 QT: 396 QTc: 487 Interpretive Statements Multifocal atrial rhythm ST DEVIATION AND MODERATE T-WAVE ABNORMALITY, CONSIDER LATERAL ISCHEMIA [-0.1+ mV T-WAVE IN I/aVL/V5/V6] ST DEVIATION AND MODERATE T-WAVE ABNORMALITY, CONSIDER INFERIOR ISCHEMIA [-0.1+ mV T-WAVE IN II/aVF] Compared to ECG 01/03/2022 09:16:07 No significant changes Electronically Signed On 04-01-2022 21:15:56 DEPENDENCY PROGRAM DIRECTOR by Deonte Shah M.D. [email or web address]/store/[id number]
--- NOTE | 2022-04-01 19:09 | XRR_ITS ---
PROCEDURE INFORMATION: Exam: XR Chest Exam date and time: 04/01/2022 7:34 PM Age: 81 years old Clinical indication: Shortness of breath; Prior surgery; Surgery date: 6+ months; Surgery type: Stints lt breast; Additional info: SOB TECHNIQUE: Imaging protocol: Radiologic exam of the chest. Views: 1 view. COMPARISON: CR XR chest 1V portable [id number] 12/30/2021 9:24 AM FINDINGS: Lungs: No consolidation. Pleural spaces: Moderate volume left pleural effusion. No pneumothorax. Heart/Mediastinum: Moderate cardiomegaly. Bones/joints: Visualized osseous structures are intact. XR/XR chest 1V portable [id number] IMPRESSION: Moderate cardiomegaly with moderate volume left pleural effusion.
[2022-04-01 19:44] VITALS: PULSE 89; RESP 16; O2SAT 84
--- NOTE | 2022-04-01 19:44 | W.ED.SOB ---
HPI - SOB/Dyspnea General: Chief Complaint: Shortness of Breath/Dyspnea Stated Complaint: low heart rate sent by home health Time Seen by Provider: 04/01/22 19:30 History of Present Illness: HPI Narrative: Patient comes in with hypoxia. States that her home health nurse was checking on her today and noticed that her oxygen saturations were low. States when she listened to her lungs she felt she heard crackles in both lungs. Patient denies any cold symptoms including no fever, cough, congestion, vomiting, diarrhea. States she feels pretty good. She denies chest pain. Associated symptoms: Deny abdominal pain, chest pain, fever(s), nausea, palpitations, polyuria or vomiting Review of Systems Const: Denies: fever(s) or body aches Eyes: Denies: change in vision or blurry vision ENMT: Denies: throat pain or odynophagia Card: Denies: chest pain or palpitations Resp: Denies: dyspnea or productive cough GI: Denies: abdominal pain, nausea or vomiting : Denies: flank pain or dysuria Musc: Denies: neck pain or back pain Skin/Breast: Denies: rash or pruritus Neuro: Denies: headache(s) or numbness in extremities Psych: Denies: anxiety or change in appetite Endo: Denies: polyuria or excessive sweating PFSH ED PFSH: Medical History (Updated 04/01/22 @ 21:54 by Fernando Yi MD) Breast cancer Diabetes mellitus Gout Hyperlipidemia Hypertension Hypothyroidism Pancreatic mass Surgical History History of hysterectomy History of mastectomy History of thyroidectomy History of tonsillectomy Family History Other CAD (coronary artery disease) Social History Smoking and tobacco status: former smoker ( tried it ) Alcohol intake: never Physical Exam Const: COMMON NORMALS: no acute distress, patient oriented x3, healthy appearing and alert HENMT: COMMON NORMALS: normocephalic and atraumatic HEAD & SCALP: normocephalic and atraumatic Eye: COMMON NORMALS: Equal, round and reactive pupils present and EOMs intact bilaterally PUPIL: Yes Equal, round and reactive pupils present Neck/C-Spine: COMMON NORMALS: full ROM and supple Resp: COMMON NORMALS: normal respiratory effort and No retractions OTHER: decreased breath sounds in the left lower lung, with coarse breath sounds in all lung gutierrez. Cardio: COMMON NORMALS: regular rate and regular rhythm RATE: regular rate RHYTHM: regular rhythm GI: COMMON NORMALS: Normal to inspection, nondistended, normoactive bowel sounds present, Soft to palpation and non-tender PALPATION: Yes Soft to palpation Back/Pelvis: COMMON NORMALS: thoracic and lumbar spine normal to inspection and no thoracic nor lumbar tenderness Extremity: COMMON NORMALS: normal to inspection and full ROM Neuro: COMMON NORMALS: patient oriented x3 SENSORIUM/ORIENTATION: Yes alert Psych: COMMON NORMALS: mental status grossly normal and cooperative Skin: COMMON NORMALS: no rashes or lesions noted and no wounds GENERAL SKIN EXAM: no rashes or lesions noted Course Vital Signs: Vital signs: Vital Signs Temperature 97.3 F L 04/01/22 18:51 Pulse Rate 91 04/01/22 18:51 Respiratory Rate 18 04/01/22 18:51 Blood Pressure 127/75 04/01/22 18:51 Pulse Oximetry 88 L 04/01/22 18:51 Oxygen Delivery Me thod 04/01/22 18:51 MDM - SOB/Dyspnea Medical Decision Making Patient comes in with hypoxia. States that her home health nurse was checking on her today and noticed that her oxygen saturations were low. States when she listened to her lungs she felt she heard crackles in both lungs. Patient denies any cold symptoms including no fever, cough, congestion, vomiting, diarrhea. States she feels pretty good. She denies chest pain. On physical exam she has decreased breath sounds in the left lower lung, with coarse breath sounds in all lung gutierrez. On further discussion patient states that she has not been taking her Lasix for the past month. She states she thought they had instructed her not to. We will check x-ray, labs, and reassess. The patient is requiring 4 L of supplemental oxygen via nasal cannula to maintain her oxygen saturations. On reassessment I talked to the patient about the test results. I discussed the case with the hospitalist, and we will admit for further work-up and treatment. Lab Data 04/01/22 20:20 04/01/22 20:20 Labs/Radiology: Radiology Impressions Chest X-Ray 04/01/22 19:09 IMPRESSION: Moderate cardiomegaly with moderate volume left pleural effusion. Laboratory Results WBC 7.8 10^3/uL (4.0-10.0) 04/01/22 20:20 RBC 4.90 10^6/uL (4.1-5.3) 04/01/22 20:20 Hgb 12.9 g/dL (11.5-15.3) 04/01/22 20:20 Hct 42.3 % (37.0-47.0) 04/01/22 20:20 MCV 86.3 fl (81-99) 04/01/22 20:20 MCH 26.3 pg (28.0-34.0) L 04/01/22 20:20 MCHC 30.5 g/dL (30.0-36.0) 04/01/22 20:20 RDW 19.8 % (12.1-15.1) H 04/01/22 20:20 Plt Count 326 10^3/cmm (130-400) 04/01/22 20:20 MPV 9.6 fL (7.4-10.4) 04/01/22 20:20 Neut % (Auto) 79.0 % 04/01/22 20:20 Lymph % (Auto) 11.1 % 04/01/22 20:20 [place] % (Auto) 8.2 % 04/01/22 20:20 Eos % (Auto) 0.4 % 04/01/22 20:20 Baso % (Auto) 0.5 % 04/01/22 20:20 Neut # (Auto) 6.17 10^3/uL (1.8-7.7) 04/01/22 20:20 Lymph # (Auto) 0.9 10^3/uL (0.8-4.8) 04/01/22 20:20 [place] # (Auto) 0.6 10^3/uL (0.2-0.9) 04/01/22 20:20 Eos # (Auto) 0.0 10^3/uL (0.0-0.8) 04/01/22 20:20 Baso # (Auto) 0.0 10^3/uL (0.0-0.1) 04/01/22 20:20 Nucleated RBC % (auto) 0 % 04/01/22 20:20 Nucleated RBCs # 0.0 /100WBC 04/01/22 20:20 D-Dimer 2.49 ug/mIFEU (0-0.59) H 04/01/22 20:20 Sodium 135 mmol/L (136-145) L 04/01/22 20:20 Potassium 3.7 mmol/L (3.5-5.1) 04/01/22 20:20 Chloride 99 mmol/L (98-107) 04/01/22 20:20 Carbon Dioxide 19 mmol/L (22-29) L 04/01/22 20:20 Anion Gap 20.7 (5-19) H 04/01/22 20:20 BUN 24 mg/dL (8-23) H 04/01/22 20:20 Creatinine 1.2 mg/dL (0.5-0.9) H 04/01/22 20:20 GFR Calculation Not Reportable 04/01/22 20:20 Glucose 274 mg/dL (65-115) H 04/01/22 20:20 Calculated Osmolality 294 mOsm/kg (285-295) 04/01/22 20:20 Calcium 9.1 mg/dL (8.5-10.5) 04/01/22 20:20 Total Bilirubin 0.4 mg/dL (0.15-1.2) 04/01/22 20:20 AST 18 U/L (0-32) 04/01/22 20:20 ALT 17 U/L (0-33) 04/01/22 20:20 Alkaline Phosphatase 111 U/L (35-105) H 04/01/22 20:20 Troponin T Baseline 92 ng/L (0-10) H 04/01/22 20:20 NT-Pro-B Natriuret Pep 40450 pg/mL (0-450) H 04/01/22 20:20 Total Protein 8.2 g/dL (6.6-8.7) 04/01/22 20:20 Albumin 4.3 g/dL (3.5-5.2) 04/01/22 20:20 Globulin 3.9 g/dL (1.3-4.6) 04/01/22 20:20 Discharge Plan Discharge Patient Disposition: Admitted As Inpatient Clinical Impression: Pleural effusion, Pulmonary edema, Hypoxia Condition: Stable Coding Level of Care Code ED Director Of Income Tax for Chg Fwd Exam Comprehensive
[2022-04-01 19:50] VITALS: O2SAT 90
[2022-04-01] MEDS: FUROsemide 10 mg/mL SDV 4mL 40 MG IVP (20:24)
[2022-04-01 20:39] LABS: Basophils % 0.5 %; Eosinophils % 0.4 %; Hematocrit 42.3 % (37.0-47.0); Hemoglobin 12.9 g/dL (11.5-15.3); Lymphocytes # 0.9 10^3/uL (0.8-4.8); Lymphocytes % 11.1 %; Mean Corpuscular HGB Conc 30.5 g/dL (30.0-36.0); Mean Corpuscular Hemoglobin 26.3 pg (28.0-34.0); Mean Corpuscular Volume 86.3 fl (81-99); Mean Platelet Volume 9.6 fL (7.4-10.4); Monocytes # 0.6 10^3/uL (0.2-0.9); Monocytes % 8.2 %; Neutrophils # 6.17 10^3/uL (1.8-7.7); Nucleated Red Blood Cells % 0 %; Platelet Count 326 10^3/cmm (130-400); Red Cell Distribution Width 19.8 % (12.1-15.1); White Blood Count 7.8 10^3/uL (4.0-10.0)
[2022-04-01 20:52] LABS: D Dimer 2.49 ug/mIFEU (0-0.59)
[2022-04-01 20:57] LABS: Troponin(5th) Baseline 92 ng/L (0-10)
--- NOTE | 2022-04-01 21:09 | ECG_ITS ---
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 Measurements Intervals [place] Rate: 83 P: 27 [place]: 165 QRS: 42 QRSD: 100 T: 18 QT: 393 QTc: 464 Interpretive Statements SINUS RHYTHM LEFT VENTRICULAR HYPERTROPHY AND ST-T CHANGE [VOLTAGE CRITERIA PLUS ST/T ABNORMALITY] Compared to ECG 04/01/2022 18:57:47 Left ventricular hypertrophy now present ST (T wave) deviation now present Atrial fibrillation no longer present T-wave abnormality no longer present Possible ischemia no longer present Electronically Signed On 04-02-2022 20:38:23 WHEELCHAIR RENTAL CLERK by Tali Souza M.D. [email or web address] medical [email or web address] general [email or web address].[employer]/store/OM/[id number]/[id number]
[2022-04-01 21:29] LABS: Alanine Aminotransferase 17 U/L (0-33); Albumin Level 4.3 g/dL (3.5-5.2); Alkaline Phosphatase 111 U/L (35-105); Aspartate Amino Transferase 18 U/L (0-32); Blood Urea Nitrogen 24 mg/dL (8-23); Calcium 9.1 mg/dL (8.5-10.5); Carbon Dioxide 19 mmol/L (22-29); Globulin 3.9 g/dL (1.3-4.6); Glucose 274 mg/dL (65-115); NT Pro B Type Natriuretic Pept 14945 pg/mL (0-450); Total Bilirubin 0.4 mg/dL (0.15-1.2); Total Protein 8.2 g/dL (6.6-8.7)
[2022-04-01 21:39] LABS: Anion Gap 20.7 (5-19); Chloride 99 mmol/L (98-107); Osmolality Calculated 294 mOsm/kg (285-295); Potassium 3.7 mmol/L (3.5-5.1); Sodium 135 mmol/L (136-145)
[2022-04-01 22:52] VITALS: BP 139/73; PULSE 84; RESP 16; O2SAT 90
--- NOTE | 2022-04-01 22:59 | CTR_ITS ---
PROCEDURE INFORMATION: Exam: CTA Chest With Contrast Exam date and time: 04/01/2022 11:33 PM Age: 81 years old Clinical indication: Abnormal findings; Abnormal diagnostic tests; Elevated d-dimer; Shortness of breath; Prior surgery; Surgery type: Mastectomy. Thyroidectomy; Patient HX: SOB with elevated d dimer. Recent history of pancreatitis with mass. Breast cancer. TECHNIQUE: Imaging protocol: Computed tomographic angiography of the chest with contrast. 3D rendering (Not supervised by radiologist): MIP and/or 3D reconstructed images were created by the technologist. Radiation optimization: All CT scans at this facility use at least one of these dose optimization techniques: automated exposure control; mA and/or kV adjustment per patient size (includes targeted exams where dose is matched to clinical indication); or iterative reconstruction. Contrast material: OMNI 350; Contrast volume: 75 ml; Contrast route: INTRAVENOUS (IV); COMPARISON: CT angio chest PE protcl [id number] 12/30/2021 12:38 PM RADIATION DOSE METRICS: Total DLP (mGy-cm): 476.46 FINDINGS: Pulmonary arteries: Evaluation for pulmonary embolism:. - Main pulmonary artery: No evidence of filling defects to suggest acute pulmonary embolism pulmonary embolism. - The right and left main pulmonary artery branches: No evidence of filling defects to suggest acute pulmonary embolism. - Lobar pulmonary arteries: No evidence of filling defects to suggest acute pulmonary embolism. - Segmental pulmonary artery branches: No evidence of filling defect to suggest acute pulmonary embolism. - Subsegmental pulmonary arteries: There is a filling defect of a distal left lower lobe pulmonary artery branch, (series 6, images [id number]), concerning for acute left lower lobe pulmonary embolism. Suspected small filling defect of a distal right lower lobe subsegmental pulmonary artery branch , (series 6, image 310), concerning for acute pulmonary embolism. The main pulmonary artery is dilated measuring approximately 3.5 cm, compatible with pulmonary hypertension. The RV/LV ratio equals 97. Aorta: There are calcifications of the aortic root. There are atherosclerotic calcifications of the aortic arch. There are atherosclerotic calcifications of the descending thoracic aorta. There are atherosclerotic calcifications of the abdominal aorta and its branches. Other arteries: There are atherosclerotic calcifications of the origin of the arch vessels and the proximal arch vessels. Lungs: Scattered patchy airspace opacities and patchy nodular densities in both lungs concerning for multifocal pneumonia. Increased interstitial opacities may represent pulmonary edema. Increased peribronchial cuffing concerning for bronchitis. Subpleural opacity in the lingula concerning for atelectasis , inflammation, or pneumonia. Underlying lesions can not be excluded. Continued attention on follow-up is recommended. Pleural spaces: Large left and geeg-ly-utdwovop right pleural effusions and adjacent atelectasis. Heart: Right side of the heart: No evidence of acute pulmonary embolism. There is cardiomegaly and left atrial enlargement. Coronary arteries: There are atherosclerotic calcifications of the coronary arteries. Lymph nodes: Unremarkable. No enlarged lymph nodes. Bones/joints: There are degenerative changes of the thoracic spine. Diffuse flowing osteophytes concerning for diffuse idiopathic skeletal hyperostosis. No acute osseous fractures are identified. Soft tissues: The imaged portions of the abdominal viscera appear grossly stable compared to the prior. Prior left mastectomy is again noted. CT/CT angio chest PE protcl [id number] IMPRESSION: 1. Positive for subsegmental lower lobe pulmonary embolism as described above. 2. Redemonstration of stable additional intrathoracic findings. Bilateral, left more than right pleural effusions and adjacent atelectasis. Scattered patchy airspace and nodular opacities may represent multifocal pneumonia. Underlying nodules or lesions can not be excluded. Attention on short-term follow-up chest CT within 3 -6 months is recommended according to Fleischner criteria. 3. Partially imaged upper abdominal findings similar to the prior. 4. Prior left mastectomy. Findings were discussed with Dr. Small by Dr. Tirado on 04/02/2022 at 1:02 a.m. with read back comprehension and verification.
[2022-04-01] MEDS: diphenhydrAMINE 50 mg/mL SDV 1mL 25 MG IVP (23:07)
--- NOTE | 2022-04-01 23:35 | P.HP_ITS ---
Providers/Chief Complaint Admitting Physician: Bishop Small MD Primary Care Provider: MOISES Suárez Chief Complaint: low heart rate sent by home health History of Present Illness Cristal Gonzalez is a 81 year old female with a past history [id number] type 2 diabetes mellitus, hyperlipidemia, hypertension, hypothyroidism, aortic stenosis, currently not a candidate for TAVR given recent diagnosis of pancreatic cancer, recent history of PCI and stenting to LAD, A. fib with RVR on [facility], recently diagnosed with a pancreatic cancer, most of the work-up was done in [place] not a surgical candidate, undergoing evaluation for chemotherapy who presents to [facility] due to concerns for hypoxia. According to patient she has been feeling fine, she has been feeling increasingly short of breath, has had increased lower extremity edema, she was using her Bumex she thought only as needed for edema, she was not using regularly. But she tells me that she feels fine and has not the reason why she is here, she tells me that her home health care nurse checked up on her today and noticed that her O2 sats were low and that she had heard crackles on exam. She denies any chest pain no palpitations, no hemoptysis. No calf pain, no calf swelling. Review of Systems Const: Denies: fever(s) Card: Denies: chest pain or palpitations Resp: Reports: dyspnea; Denies: non-productive cough GI: Denies: abdominal pain : Denies: flank pain Neuro: Denies: headache(s) Medications/Allergies Home Medications Medication Instructions Recorded Confirmed Last Taken Type allopurinol 300 mg tablet 300 mg PO BEDTIME 12/30/21 03/08/22 12/29/21 History anastrozole 1 mg tablet 1 mg PO BEDTIME 12/30/21 03/08/22 12/29/21 History calcium carbonate 500 mg calcium 500 mg PO DAILY 12/30/21 03/08/22 Unknown History (1,250 mg) tablet cholecalciferol (vitamin D3) 10 800 unit PO DAILY 12/30/21 03/08/22 Unknown History mcg (400 unit) tablet (Vitamin D3) omega-3 fatty acids 1,000 mg 1,000 mg PO DAILY 12/30/21 03/08/22 Unknown History capsule vit C 250 mg-vit E 90 mg-zinc 40 1 tab PO BID 12/30/21 03/08/22 12/29/21 History mg-copper 1 [id number] capsule (PreserVision AREDS-2) dapagliflozin 10 mg tablet 10 mg PO DAILY 01/11/22 03/08/22 Unknown History ([facility]) metoprolol succinate 50 mg 50 mg PO DAILY 01/11/22 03/08/22 Unknown History tablet,extended release 24 hr bumetanide 2 mg tablet 2 mg PO DAILY 01/19/22 03/08/22 Unknown History apixaban 5 mg tablet (Eliquis) 5 mg PO Q12H #180 tabs 02/22/22 03/08/22 Unknown Rx amiodarone 200 mg tablet 200 mg PO DAILY 03/08/22 03/08/22 Unknown History amlodipine 10 mg tablet 10 mg PO DAILY 03/08/22 03/08/22 Unknown History atorvastatin 40 mg tablet 40 mg PO DAILY 03/08/22 03/08/22 Unknown History clopidogrel 75 mg tablet 75 mg PO DAILY 03/08/22 03/08/22 Unknown History cyanocobalamin (vitamin B-12) 1,000 mcg PO DAILY 03/08/22 03/08/22 Unknown History 1,000 mcg capsule levothyroxine 125 mcg tablet 100 mcg PO DAILY 03/08/22 03/08/22 Unknown History pantoprazole 40 mg tablet,delayed 40 mg PO DAILY 03/08/22 03/08/22 Unknown History release Allergies Allergy/AdvReac Type Severity Reaction Status Date / Time iodine Allergy ADR-Itching Verified 03/08/22 07:27 PFSH Acute PFSH: Medical History Breast cancer Diabetes mellitus Gout Hyperlipidemia Hypertension Hypothyroidism Pancreatic mass Surgical History History of hysterectomy History of mastectomy History of thyroidectomy History of tonsillectomy Family History Other CAD (coronary artery disease) Social History Smoking and tobacco status: former smoker ( tried it ) Alcohol intake: never Vitals/I&O/Wt Last Vital Signs Temp 97.3 F L 04/01/22 18:51 Pulse 84 04/01/22 22:52 Resp 16 04/01/22 22:52 BP 139/73 04/01/22 22:52 Pulse Ox 90 04/01/22 22:52 O2 Del Method 04/01/22 22:52 O2 Flow Rate 5 04/01/22 22:52 Weight last 48 hrs Weight 75.75 kg Physical Exam Const: COMMON NORMALS: no acute distress and patient oriented x3 HENMT: COMMON NORMALS: normocephalic HEAD & SCALP: normocephalic Eye: COMMON NORMALS: Equal, round and reactive pupils present and EOMs intact bilaterally Neck/C-Spine: COMMON NORMALS: no JVD Lymph: LYMPHATIC: no lymphadenopathy noted Resp: COMMON NORMALS: normal respiratory effort, No retractions and No use of accessory muscles AUSCULTATION: clear to auscultation bilaterally OTHER: Decreased aeration left lung base Cardio: COMMON NORMALS: no JVD, regular rate, regular rhythm, S1 normal heart sound present and S2 normal heart sound present RATE: regular rate RHYTHM: regular rhythm HEART SOUNDS: S1 normal heart sound present and S2 normal heart sound present GI: COMMON NORMALS: Soft to palpation INSPECTION: Yes normal to inspection AUSCULTATION: Yes normoactive bowel sounds PALPATION: Yes Soft to palpation and Yes No hepatosplenomegaly present OTHER: Abdomen slightly distended Extremity: COMMON NORMALS: no calf tenderness NARRATIVE EXTREMITY EXAM: 2+ pitting edema Neuro: COMMON NORMALS: patient oriented x3, CN's II-XII intact bilaterally and moves all extremities Psych: COMMON NORMALS: mental status grossly normal Data 04/01/22 20:20 04/01/22 20:20 A&P Assessment and plan (1) Pleural effusion: (2) Pulmonary edema: (3) Hypoxia: (4) Pancreatic mass: (5) Paroxysmal atrial fibrillation with RVR: (6) Hypertension: (7) Severe aortic valve stenosis: (8) Atherosclerotic heart disease of [place] coronary artery with unstable angina pectoris: (9) Hypothyroidism: (10) Hyperlipidemia: (11) Diabetes mellitus: (12) CHF exacerbation: (13) NSTEMI (non-ST elevated myocardial infarction): Plan Hypoxia -Likely secondary to fluid overload, large left pleural effusion -Likely systolic CHF exacerbation, does have 2+ pitting edema -However D-dimer is elevated 2.85, recently diagnosed with pancreatic cancer -Elevated troponins Plan -Admit to CSU -Bumex therapy -Fluid restriction -CT angiogram of the chest -We will do a left thoracocentesis -I will be time her Plavix and Eliquis for 2 PM, hopefully the thoracocentesis can be done early in the morning as Plavix and Eliquis cannot really be held due to recent history of stent placement -Full code -SCDs for DVT phylaxis, Eliquis NSTEMI, serial EKGs here at 1 telemetry monitoring, recent history of LAD stenting Type 2 diabetes mellitus, low-dose sliding scale History of severe aortic valve stenosis, currently not a candidate for TAVR given history of pancreatic malignancy Pancreatic malignancy, diagnosed in [place], she has told me that she not a candidate for surgery, so she has to see Dr. Hernandez or Dr. Osman for chemotherapy evaluation but has not seen them yet MAREK, creatinine 1.2 monitor Attestations Medical Necessity Statement*: Patient requires hospitalization, inpatient, greater than 2 minutes, for fluid overload systolic CHF exacerbation left pleural effusion Coding Level of Care Code Acute Hoisting Pile Driving Engineer for Chg Fwd Diagnoses Pleural effusion J90 Pulmonary edema J81.1 Hypoxia R09.02 Pancreatic mass K86.89 Paroxysmal atrial fibrillation with RVR I48.0 Hypertension I10 Severe aortic valve stenosis I35.0 Atherosclerotic heart disease of [place] coronary artery with unstable angina pectoris I25.110 Hypothyroidism E03.9 Hyperlipidemia E78.5 Diabetes mellitus E11.9 CHF exacerbation I50.9 NSTEMI (non-ST elevated myocardial infarction) I21.4
[2022-04-01] MEDS: iohexol 350 mg/mL 500 mL Btl (per mL) IV (23:42)
[2022-04-01 23:56] VITALS: O2SAT 92
[2022-04-02] VITALS (160 sets, daily range): BP systolic 101–142; BP diastolic 60–81; PULSE 65–99; RESP 11–43; TEMP 36.4–37.2; O2SAT 2–100
[2022-04-02 01:24] LABS: Basophils % 0.4 %; Eosinophils % 0.3 %; Hematocrit 41.5 % (37.0-47.0); Hemoglobin 12.8 g/dL (11.5-15.3); Lymphocytes # 0.5 10^3/uL (0.8-4.8); Lymphocytes % 7.1 %; Mean Corpuscular HGB Conc 30.8 g/dL (30.0-36.0); Mean Corpuscular Hemoglobin 26.4 pg (28.0-34.0); Mean Corpuscular Volume 85.7 fl (81-99); Mean Platelet Volume 9.7 fL (7.4-10.4); Monocytes # 0.3 10^3/uL (0.2-0.9); Neutrophils # 6.42 10^3/uL (1.8-7.7); Neutrophils % 87.5 %; Nucleated Red Blood Cells % 0 %; Platelet Count 314 10^3/cmm (130-400); Red Blood Count 4.84 10^6/uL (4.1-5.3); Red Cell Distribution Width 19.5 % (12.1-15.1); White Blood Count 7.3 10^3/uL (4.0-10.0)
[2022-04-02 01:57] LABS: Troponin 5 6HR 93.74 ng/L (0-10)
[2022-04-02 01:58] LABS: Anion Gap 20.6 (5-19); Blood Urea Nitrogen 22 mg/dL (8-23); C Reactive Protein 19.3 mg/L (0.0-4.9); Calcium 8.8 mg/dL (8.5-10.5); Carbon Dioxide 21 mmol/L (22-29); Chloride 98 mmol/L (98-107); Glucose 257 mg/dL (65-115); Magnesium 1.9 mg/dL (1.7-2.3); Osmolality Calculated 294 mOsm/kg (285-295); Phosphorus 3.5 mg/dL (2.5-4.5); Potassium 3.6 mmol/L (3.5-5.1); Sodium 136 mmol/L (136-145)
[2022-04-02 02:05] LABS: Procalcitonin 0.07 ng/mL (0-0.5)
[2022-04-02 02:07] LABS: Troponin 5 6HR Delta 1.74 ng/L (0-12)
[2022-04-02] MEDS: heparin 5,000 unit/mL INJ 1 mL IV (02:53)
[2022-04-02] MEDS: cefTRIAXone 1,000 MG in sodium chloride 0.9% (plus) 50 ML 100 MG IV (02:53)
--- NOTE | 2022-04-02 02:59 | ECG_ITS ---
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 Measurements Intervals [place]od Rate: 89 P: 89 UT: 168 QRS: 54 QRSD: 102 T: -79 QT: 390 QTc: 477 Interpretive Statements SINUS RHYTHM WITH SINUS ARRHYTHMIA ST DEVIATION AND MODERATE T-WAVE ABNORMALITY, CONSIDER INFERIOR ISCHEMIA [-0.1+ mV T-WAVE IN II/aVF] Compared to ECG 04/01/2022 20:47:52 T-wave abnormality now present Possible ischemia now present Left ventricular hypertrophy no longer present ST (T wave) deviation no longer present Electronically Signed On 04-02-2022 20:37:12 WHEEL BUFFER by Tali Souza M.D. [id number]
[2022-04-02] MEDS: azithromycin 500 MG in sodium chloride 0.9% 250 ML 250 MG IV (03:06)
[2022-04-02] MEDS: heparin drip 25,000 UNIT/500 ML PREMIX 21.21 UNIT IV (03:10)
[2022-04-02 03:51] LABS: ABG PCO2 35.2 mmHg (35-45); ABG PH Result 7.44 (7.35-7.45); Arterial Blood Gas Hematocrit 39.8 % (37-47); Base Excess ABG 0.3 mmol/L (-2.0-2.0); Blood Gas Allen Test Pos; Blood Gas Sample Site Brachial, left; Blood Gas Sample Type Arterial; Oxygen Device NC; PO2 ABG 49.4 mmHg (80.0-100.0)
[2022-04-02 06:11] LABS: Glucose Point of Care 291 mg/dL (70-110)
[2022-04-02] MEDS: insulin lispro 100 unit/1 mL SUBCUT ×3 (08:32→17:26)
[2022-04-02] MEDS: amiodarone 200 mg Tablet PO (08:32)
[2022-04-02] MEDS: atorvastatin 40 mg Tablet PO (08:32)
[2022-04-02] MEDS: levothyroxine 100 mcg Tablet PO (08:32)
[2022-04-02] MEDS: amlodipine 10 mg Tablet PO (08:32)
[2022-04-02] MEDS: metoprolol succinate ER (24 HR) 50 mg Tablet PO (08:32)
[2022-04-02] MEDS: omega-3 fatty acids 1,000 mg Capsule 1000 MG PO (08:32)
[2022-04-02] MEDS: pantoprazole DR 40 mg Tablet PO (08:32)
[2022-04-02] MEDS: cyanocobalamin 1,000 mcg Tablet 1000 MCG PO (08:32)
[2022-04-02] MEDS: bumetanide 0.25 mg/mL SDV 4 mL 1 MG IVP ×2 (09:01→21:57)
--- NOTE | 2022-04-02 09:45 | PC.CHAP ---
Pastoral Care Encounter/Spiritual Assessment Type of Contact [] Declined ambulatory care visit [] Patient/Family/Request visit [] Outpatient visit [] Follow-up visit [] Physician referral [] Code/Alert [x] Routine visit [] Staff referral [] Actively dying [] Patient sleeping [] Family support [] [] Out of room [] Palliative care [] [x] Receiving care in room [] Pre-surgical visit [] Trauma [] Long length of stay [] ICU visit [] Other: Relational/Emotional Strength [] Patient feels connected with others/family/visitors/staff [] Distress [] Loneliness/isolation [] Abandonment Spirituality of Patient [] Person of Livia [] Attends [employer]aritan of their Livia [] Believes in Prayer [] Reads Bible or Restorationist materials [] There are Spiritual issues to be addressed Saw Operator Interventions [x] Prayer [] Active listening [] Non-anxious presence [] Spiritual/emotional support [] Crisis/trauma care [] Spiritual counseling [] Bereavement support [] Provided bereavement packet [] Provided Bible/devotional materials [] Provided toy/stuffed animal, coloring book to patient or family member [] Provided Communion [] Anointing/[place] [] Salvation [] Completed spiritual assessment [] Other: Impact on Illness or Injury [] Angry [] Fearful [] Anxious [] Often cries [] Exhaustion [] Unable to work [] Unable to attend spiritism [] Unable to walk/stand [] Unable to read [] Unable to drive [] Unable to eat/drink [] Unable to sleep [] Unable to be with family [] Patient intubated [] Other: Summary Time spent with patient
--- NOTE | 2022-04-02 10:01 | PC.NURSE ---
Critical PTT reported to Dr. Faustin. Orders to hold heparin drip and obtain a ptt in 3 hours.
--- NOTE | 2022-04-02 10:27 | PM.PN ---
Subjective Subjective: Overnight labs reviewed. PTT elevated this morning so heparin drip is on hold. Plan for thoracentesis, cannot be completed today, will need to be done tomorrow. Till then we will continue with heparin drip. Plavix needs to continue due to recent stenting. Medications: Reviewed: Yes Vitals/I&O/Wt Last Vital Signs Temp 97.9 F 04/02/22 08:00 Pulse 99 04/02/22 09:18 Resp 19 H 04/02/22 07:55 BP 115/64 04/02/22 07:55 Pulse Ox 98 04/02/22 09:18 O2 Del Method 04/02/22 09:18 O2 Flow Rate 9 04/02/22 09:18 04/01/22 04/02/22 04/02/22 22:59 06:59 14:59 Intake Total 100 / 100 380.935 / 380.935 Balance 100 / 100 380.935 / 380.935 Weight last 48 hrs Weight 75.75 kg Physical Exam Narrative: General: No acute distress, AO x3 HEENT: PERRLA, pupils bilaterally equal and reactive, pallors not present Chest: Reduced breath sounds right lower lobe CVS: S1-S2 regular, no murmurs, no tachycardia, no gallops, no rubs Abdomen: Soft, nontender, no organomegaly, bowel sounds present Neuro: No focal deficits, no facial deformity, AO x3, power 5/5 in all limbs Data 04/02/22 01:17 04/02/22 01:17 A&P Assessment and plan (1) Pleural effusion: (2) Pulmonary edema: (3) Hypoxia: (4) Pancreatic mass: (5) Paroxysmal atrial fibrillation with RVR: (6) Hypertension: (7) Severe aortic valve stenosis: (8) Atherosclerotic heart disease of [place] coronary artery with unstable angina pectoris: (9) Hypothyroidism: (10) Hyperlipidemia: (11) Diabetes mellitus: (12) CHF exacerbation: (13) NSTEMI (non-ST elevated myocardial infarction): Plan Hypoxia - multifactorial -Likely secondary to fluid overload, large left pleural effusion -Likely acute on chronic systolic and diastolic CHF exacerbation, does have 2+ pitting edema ?Normal LV size with ejection fraction of 50 to 55%.? ?The basal inferior segment is somewhat dyskinetic.? Hypokinetic ?mid and apical inferior wall segment. ?Grade III/IV diastolic dysfunction (restrictive filling ?pattern), severely elevated filling pressures. - subsegmental PE while on Eliquis, currently on heparin drip -Elevated troponins without significant delta, likely type 2 ND. -Continue Bumex 1mg iv q12h -Fluid restriction -left thoracocentesis, likely tomorrow with radiology Type 2 diabetes mellitus, low-dose sliding scale History of severe aortic valve stenosis, currently not a candidate for TAVR given history of pancreatic malignancy Pancreatic malignancy, diagnosed in [place], she has told me that she not a candidate for surgery, so she has to see Dr. Hernandez or Dr. Osman for chemotherapy evaluation but has not seen them yet MAREK, creatinine 1.2 monitor Attestations Medical Necessity Statement*: thoracentesis, heprain drip, iv diuresis Coding Level of Care Code Acute Mobile Electronics Installer for Chg Fwd Diagnoses Pleural effusion J90 Pulmonary edema J81.1 Hypoxia R09.02 Pancreatic mass K86.89 Paroxysmal atrial fibrillation with RVR I48.0 Hypertension I10 Severe aortic valve stenosis I35.0 Atherosclerotic heart disease of [place] coronary artery with unstable angina pectoris I25.110 Hypothyroidism E03.9 Hyperlipidemia E78.5 Diabetes mellitus E11.9 CHF exacerbation I50.9 NSTEMI (non-ST elevated myocardial infarction) I21.4
[2022-04-02 11:55] LABS: Glucose Point of Care 388 mg/dL (70-110)
--- NOTE | 2022-04-02 12:32 | USCV_ITS ---
Cristal Gonzalez Age: 81 Gender: F : 1940 Exam Date: 04/02/2022 14:23 Ordering Phys: Chaya Faustin MD Technologist: CHRISTINA Exam Location: [facility] Indication: PE HISTORY: PE PROCEDURES: Venous duplex imaging was performed in bilateral lower extremities. The venous duplex Doppler examination of both lower extremities was performed in the standard fashion. The following venous structures were evaluated: common femoral vein, profunda vein, proximal portion of the greater saphenous vein, superficial femoral vein, and the popliteal vein. In addition, the posterior tibial veins were evaluated. CONCLUSIONS No evidence of right lower extremity DVT. No evidence of left lower extremity DVT. Ulysses Sargent MD (Electronically Signed) Final Date: 02 April 2022 16:33 S
[2022-04-02] MEDS: clopidogrel 75 mg Tablet PO (13:16)
--- NOTE | 2022-04-02 14:00 | PC.NURSE ---
Timed Ptt order was placed at 10:00am to be drawn at 1300. Nurse called lab and they reported to me that they did not see the order but that they will look for it. Spoke to Mitesh in lab regarding this. Nurse will follow up.
[2022-04-02 15:30] LABS: Partial Thromboplastin Time 35.5 SECONDS (23.9-36.7)
[2022-04-02 15:55] LABS: Glucose Point of Care 293 mg/dL (70-110)
[2022-04-02 20:25] LABS: Glucose Point of Care 295 mg/dL (70-110)
[2022-04-02] MEDS: anastrozole 1 mg Tablet PO (21:57)
[2022-04-02] MEDS: allopurinol 300 mg Tablet PO (21:57)
[2022-04-02 22:48] LABS: Partial Thromboplastin Time 127.3 SECONDS (23.9-36.7)
[2022-04-03] VITALS (12 sets, daily range): BP systolic 97–116; BP diastolic 51–83; PULSE 60–78; RESP 13–29; TEMP 36.4–36.9; O2SAT 86–97
[2022-04-03] MEDS: cefTRIAXone 1,000 MG in sodium chloride 0.9% (plus) 50 ML 100 MG IV (01:21)
[2022-04-03] MEDS: azithromycin 500 MG in sodium chloride 0.9% 250 ML 250 MG IV (02:58)
[2022-04-03 05:57] LABS: Basophils % 0.1 %; Eosinophils % 0.2 %; Hematocrit 37.3 % (37.0-47.0); Hemoglobin 11.4 g/dL (11.5-15.3); Lymphocytes # 1.1 10^3/uL (0.8-4.8); Lymphocytes % 10.2 %; Mean Corpuscular HGB Conc 30.6 g/dL (30.0-36.0); Mean Corpuscular Hemoglobin 26.1 pg (28.0-34.0); Mean Corpuscular Volume 85.6 fl (81-99); Mean Platelet Volume 9.8 fL (7.4-10.4); Monocytes # 0.9 10^3/uL (0.2-0.9); Monocytes % 8.4 %; Neutrophils # 8.29 10^3/uL (1.8-7.7); Neutrophils % 80.4 %; Nucleated Red Blood Cells % 0 %; Platelet Count 317 10^3/cmm (130-400); Red Blood Count 4.36 10^6/uL (4.1-5.3); Red Cell Distribution Width 19.6 % (12.1-15.1); White Blood Count 10.3 10^3/uL (4.0-10.0)
[2022-04-03 06:07] LABS: Alanine Aminotransferase 14 U/L (0-33); Albumin Level 3.9 g/dL (3.5-5.2); Alkaline Phosphatase 91 U/L (35-105); Anion Gap 17.8 (5-19); Aspartate Amino Transferase 14 U/L (0-32); Blood Urea Nitrogen 36 mg/dL (8-23); Calcium 8.5 mg/dL (8.5-10.5); Carbon Dioxide 23 mmol/L (22-29); Chloride 99 mmol/L (98-107); Globulin 3.2 g/dL (1.3-4.6); Glucose 274 mg/dL (65-115); Osmolality Calculated 300 mOsm/kg (285-295); Potassium 3.8 mmol/L (3.5-5.1); Sodium 136 mmol/L (136-145); Total Bilirubin 0.3 mg/dL (0.15-1.2); Total Protein 7.1 g/dL (6.6-8.7)
[2022-04-03 06:10] LABS: Partial Thromboplastin Time 101.2 SECONDS (23.9-36.7)
[2022-04-03 06:46] LABS: Glucose Point of Care 271 mg/dL (70-110)
[2022-04-03] MEDS: bumetanide 0.25 mg/mL SDV 4 mL 1 MG IVP ×2 (08:28→19:45)
[2022-04-03] MEDS: clopidogrel 75 mg Tablet PO (08:29)
[2022-04-03] MEDS: insulin lispro 100 unit/1 mL SUBCUT ×3 (08:29→17:47)
[2022-04-03] MEDS: atorvastatin 40 mg Tablet PO (08:29)
[2022-04-03] MEDS: omega-3 fatty acids 1,000 mg Capsule 1000 MG PO (08:29)
[2022-04-03] MEDS: cyanocobalamin 1,000 mcg Tablet 1000 MCG PO (08:29)
[2022-04-03] MEDS: pantoprazole DR 40 mg Tablet PO (08:29)
[2022-04-03] MEDS: amiodarone 200 mg Tablet PO (08:29)
[2022-04-03] MEDS: amlodipine 10 mg Tablet PO (08:29)
[2022-04-03] MEDS: levothyroxine 100 mcg Tablet PO (08:29)
[2022-04-03] MEDS: metoprolol succinate ER (24 HR) 50 mg Tablet PO (08:29)
[2022-04-03 11:59] LABS: Glucose Point of Care 339 mg/dL (70-110)
[2022-04-03 13:02] LABS: Partial Thromboplastin Time 54.7 SECONDS (23.9-36.7)
[2022-04-03] MEDS: heparin 5,000 unit/mL INJ 1 mL IV (13:25)
--- NOTE | 2022-04-03 15:23 | P.PN_ITS ---
Subjective Subjective: currently on high flow at 6lpm. no fever, hemodynamically stable. Renal function at 1.4 Medications: Reviewed: Yes Vitals/I&O/Wt Last Vital Signs Temp 98.5 F 04/03/22 07:42 Pulse 64 04/03/22 14:00 Resp 29 H 04/03/22 12:10 BP 116/83 04/03/22 12:10 Pulse Ox 97 04/03/22 14:57 O2 Del Method 04/03/22 14:57 O2 Flow Rate 6 04/03/22 14:57 04/03/22 04/03/22 04/03/22 06:59 14:59 22:59 Intake Total 300 / 1502.935 799.694 / 799.694 Output Total 500 / 500 600 / 600 Balance -200 / 1002.935 199.694 / 199.694 Weight last 48 hrs Weight 75.75 kg Physical Exam Narrative: General: No acute distress, AO x3 HEENT: PERRLA, pupils bilaterally equal and reactive, pallors not present Chest: Reduced breath sounds right lower lobe CVS: S1-S2 regular, no murmurs, no tachycardia, no gallops, no rubs Abdomen: Soft, nontender, no organomegaly, bowel sounds present Neuro: No focal deficits, no facial deformity, AO x3, power 5/5 in all limbs EXT: B/L LE 3+ pitting Data 04/03/22 05:37 04/03/22 05:37 A&P Assessment and plan (1) Pleural effusion: (2) Pulmonary edema: (3) Hypoxia: (4) Pancreatic mass: (5) Paroxysmal atrial fibrillation with RVR: (6) Hypertension: (7) Severe aortic valve stenosis: (8) Atherosclerotic heart disease of [place] coronary artery with unstable angina pectoris: (9) Hypothyroidism: (10) Hyperlipidemia: (11) Diabetes mellitus: (12) CHF exacerbation: (13) NSTEMI (non-ST elevated myocardial infarction): Plan Hypoxia - multifactorial -Likely secondary to fluid overload, large left pleural effusion, pulmonary embolism -Likely acute on chronic systolic and diastolic CHF exacerbation, does have 2+ pitting edema ?Normal LV size with ejection fraction of 50 to 55%.? ?The basal inferior segment is somewhat dyskinetic.? Hypokinetic ?mid and apical inferior wall segment. ?Grade III/IV diastolic dysfunction (restrictive filling ?pattern), severely elevated filling pressures. - subsegmental PE. Will not be considered eliquis failure as patient had been off her eliquis for nearly 2 weeks as she an EGD earlier this month for further evaluation of her pancreatic ca. 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 Can likely go back on eliquis once thoracentesis is completed -Elevated troponins without significant delta, likely type 2 [place]. -Bumex mg iv q12h, additional 1 mg dose today -Fluid restriction -left thoracocentesis, likely Tuesday - will d/c heparin drip to minimize overload. Lovenox 1 mg/kg x 1 this evening. We will hold for tomorrow so that thoracentesis can be performed on Tuesday. After thoracentesis patient can likely go back on her Eliquis 5 mg twice daily. Type 2 diabetes mellitus, low-dose sliding scale History of severe aortic valve stenosis, currently not a candidate for TAVR given history of pancreatic malignancy Pancreatic malignancy, diagnosed in [place], she has told me that she not a candidate for surgery, so she has to see Dr. Hernandez or Dr. Osman for chemotherapy evaluation but has not seen them yet MAREK, creatinine 1.2 monitor Attestations Medical Necessity Statement*: Needs ongoing admission for IV diuresis, thoracentesis on Tuesday. Coding Level of Care Code Acute Ceramics Technician for Chg Fwd Diagnoses Pleural effusion J90 Pulmonary edema J81.1 Hypoxia R09.02 Pancreatic mass K86.89 Paroxysmal atrial fibrillation with RVR I48.0 Hypertension I10 Severe aortic valve stenosis I35.0 Atherosclerotic heart disease of [place] coronary artery with unstable angina pectoris I25.110 Hypothyroidism E03.9 Hyperlipidemia E78.5 Diabetes mellitus E11.9 CHF exacerbation I50.9 NSTEMI (non-ST elevated myocardial infarction) I21.4
[2022-04-03 16:30] LABS: Glucose Point of Care 244 mg/dL (70-110)
[2022-04-03] MEDS: enoxaparin 100 mg/mL Syringe 75 MG SUBCUT (17:48)
[2022-04-03] MEDS: allopurinol 300 mg Tablet PO (19:47)
[2022-04-03] MEDS: anastrozole 1 mg Tablet PO (19:47)
[2022-04-04] VITALS (21 sets, daily range): BP systolic 106–128; BP diastolic 58–69; PULSE 58–78; RESP 13–26; TEMP 36.6; O2SAT 86–100
[2022-04-04 00:59] LABS: Glucose Point of Care 214 mg/dL (70-110)
[2022-04-04] MEDS: cefTRIAXone 1,000 MG in sodium chloride 0.9% (plus) 50 ML 100 MG IV (01:55)
[2022-04-04] MEDS: azithromycin 500 MG in sodium chloride 0.9% 250 ML 250 MG IV (01:56)
--- NOTE | 2022-04-04 03:21 | XRR_ITS ---
PROCEDURE INFORMATION: Exam: XR Chest Exam date and time: 04/04/2022 6:03 AM Age: 81 years old Clinical indication: Shortness of breath; Additional info: SOB TECHNIQUE: Imaging protocol: Radiologic exam of the chest. Views: 1 view. COMPARISON: CR (CHEST, ) 04/01/2022 7:34 PM FINDINGS: Tubes, catheters and devices: Surgical clips project over the left axilla. Lungs: Similar interstitial pulmonary edema. Similar patchy bibasilar airspace opacities. Pleural spaces: Similar small to moderate left pleural effusion. Similar small right pleural effusion. No pneumothorax. Heart/Mediastinum: Cardiomegaly. Bones/joints: Unremarkable. XR/XR chest 1V portable [id number] IMPRESSION: No substantial interval change. Similar interstitial pulmonary edema with bilateral pleural effusions and patchy bibasilar airspace opacities.
[2022-04-04] MEDS: bumetanide 0.25 mg/mL SDV 4 mL 1 MG IVP ×2 (03:30→08:19)
[2022-04-04 04:08] LABS: ABG PCO2 34.1 mmHg (35-45); Arterial Blood Gas Hematocrit 35.5 % (37-47); Base Excess ABG -2.9 mmol/L (-2.0-2.0); Blood Gas Allen Test Pos; Blood Gas Operator Identificat JB; Blood Gas Sample Site Radial, right; Blood Gas Sample Type Arterial; HCO3 ABG 21.3 mmol/L (22-26); Oxygen Device OXY MASK; PO2 ABG 53.2 mmHg (80.0-100.0)
[2022-04-04 04:27] LABS: Basophils % 0.2 %; Eosinophils # 0.1 10^3/uL (0.0-0.8); Eosinophils % 0.7 %; Hematocrit 37.7 % (37.0-47.0); Hemoglobin 11.5 g/dL (11.5-15.3); Lymphocytes # 1.3 10^3/uL (0.8-4.8); Lymphocytes % 10.8 %; Mean Corpuscular HGB Conc 30.5 g/dL (30.0-36.0); Mean Corpuscular Volume 85.1 fl (81-99); Mean Platelet Volume 9.8 fL (7.4-10.4); Monocytes # 0.8 10^3/uL (0.2-0.9); Monocytes % 6.3 %; Neutrophils # 9.88 10^3/uL (1.8-7.7); Neutrophils % 81.2 %; Nucleated Red Blood Cells % 0 %; Platelet Count 314 10^3/cmm (130-400); Red Blood Count 4.43 10^6/uL (4.1-5.3); Red Cell Distribution Width 19.4 % (12.1-15.1); White Blood Count 12.2 10^3/uL (4.0-10.0)
[2022-04-04 04:50] LABS: Alanine Aminotransferase 28 U/L (0-33); Alkaline Phosphatase 119 U/L (35-105); Aspartate Amino Transferase 33 U/L (0-32); Blood Urea Nitrogen 44 mg/dL (8-23); Calcium 8.6 mg/dL (8.5-10.5); Carbon Dioxide 20 mmol/L (22-29); Globulin 3.1 g/dL (1.3-4.6); Glucose 263 mg/dL (65-115); Total Bilirubin 0.4 mg/dL (0.15-1.2); Total Protein 7.1 g/dL (6.6-8.7)
[2022-04-04 06:35] LABS: Anion Gap 20.1 (5-19); Chloride 98 mmol/L (98-107); Osmolality Calculated 298 mOsm/kg (285-295); Potassium 4.1 mmol/L (3.5-5.1); Sodium 134 mmol/L (136-145)
[2022-04-04 06:59] LABS: Glucose Point of Care 259 mg/dL (70-110)
[2022-04-04] MEDS: insulin lispro 100 unit/1 mL SUBCUT ×3 (08:18→17:24)
[2022-04-04] MEDS: levothyroxine 100 mcg Tablet PO (08:22)
[2022-04-04] MEDS: amlodipine 10 mg Tablet PO (08:22)
[2022-04-04] MEDS: cyanocobalamin 1,000 mcg Tablet 1000 MCG PO (08:22)
[2022-04-04] MEDS: amiodarone 200 mg Tablet PO (08:22)
[2022-04-04] MEDS: atorvastatin 40 mg Tablet PO (08:22)
[2022-04-04] MEDS: clopidogrel 75 mg Tablet PO (08:22)
[2022-04-04] MEDS: omega-3 fatty acids 1,000 mg Capsule 1000 MG PO (08:22)
[2022-04-04] MEDS: metoprolol succinate ER (24 HR) 50 mg Tablet PO (08:22)
[2022-04-04] MEDS: pantoprazole DR 40 mg Tablet PO (08:24)
--- NOTE | 2022-04-04 09:50 | PC.SOCIAL ---
IMM update pg 2 of IMM updated and reviewed w/ patient. Copy provided and Copy dated, initialed and placed in chart.
[2022-04-04] MEDS: enoxaparin 80 mg/0.8 mL Syringe 75 MG SUBCUT (10:14)
[2022-04-04 11:34] LABS: Glucose Point of Care 248 mg/dL (70-110)
[2022-04-04 12:10] LABS: Adenovirus Not Detected (NOT DETECT); Chlamydia Pneumoniae Not Detected (NOT DETECT); Coronavirus 229E,HKU1,NL63,OC4 Not Detected (NOT DETECT); Human Metapneumovirus Not Detected (NOT DETECT); Human Rhinovirus/Enterovirus Not Detected (NOT DETECT); Influenza A Not Detected (NOT DETECT); Influenza A H1 Not Detected (NOT DETECT); Influenza A H1-2009 Not Detected (NOT DETECT); Influenza A H3 Not Detected (NOT DETECT); Influenza B Not Detected (NOT DETECT); Mycoplasma Pneumoniae Not Detected (NOT DETECT); Parainfluenza Virus Type 1 Not Detected (NOT DETECT); Parainfluenza Virus Type 2 Not Detected (NOT DETECT); Parainfluenza Virus Type 3 Not Detected (NOT DETECT); Parainfluenza Virus Type 4 Not Detected (NOT DETECT); Respiratory Syncytial Virus A Not Detected (NOT DETECT); Respiratory Syncytial Virus B Not Detected (NOT DETECT); SARS-COV-2 Not Detected (NOT DETECT)
--- NOTE | 2022-04-04 14:02 | PM.PN ---
Subjective Subjective: Overnight patient became hypoxic with saturation dropping in the 80s when she got up to use the bathroom. Upon returning she was short of breath and thought that she would pass out. Initially attempted to be placed on BiPAP, however she became very claustrophobic with the mask therefore she is currently on heated high flow. She received an extra dose of Bumex 1 mg IV. Oxygen flow rate is currently at 40 L/min with FiO2 60%. She is saturating at 92% on the settings. Currently states her breathing is better than last night. urine output is 1800 cc over last 24 hours. Patient is still net positive by 1-1/2 L. Medications: Reviewed: Yes Vitals/I&O/Wt Last Vital Signs Temp 97.6 F 04/03/22 23:18 Pulse 71 04/04/22 12:30 Resp 20 H 04/04/22 12:30 BP 128/67 04/04/22 11:24 Pulse Ox 90 04/04/22 12:30 O2 Del Method 04/04/22 07:06 O2 Flow Rate 40 04/04/22 12:30 FiO2 60 04/04/22 12:30 04/03/22 04/04/22 04/04/22 22:59 06:59 14:59 Intake Total 290 / 1104.861 300 / 1404.861 480 / 480 Output Total 300 / 900 900 / 900 Balance -10 / 204.861 300 / 504.861 -420 / -420 Physical Exam Narrative: General: No acute distress, AO x3, currently on heated hi flow HEENT: PERRLA, pupils bilaterally equal and reactive, pallors not present Chest: Normal vesicular breath sounds, no added sounds, equal good air entry bilaterally CVS: S1-S2 regular, no murmurs, no tachycardia, no gallops, no rubs Abdomen: Soft, nontender, no organomegaly, bowel sounds present Neuro: No focal deficits, no facial deformity, AO x3, power 5/5 in all limbs EXT: 2+ pitting edema B/L Data 04/04/22 03:30 04/04/22 03:30 A&P Assessment and plan (1) Pleural effusion: (2) Pulmonary edema: (3) Hypoxia: (4) Pancreatic mass: (5) Paroxysmal atrial fibrillation with RVR: (6) Hypertension: (7) Severe aortic valve stenosis: (8) Atherosclerotic heart disease of [place] coronary artery with unstable angina pectoris: (9) Hypothyroidism: (10) Hyperlipidemia: (11) Diabetes mellitus: (12) CHF exacerbation: (13) NSTEMI (non-ST elevated myocardial infarction): Plan # Hypoxic respiratory failure - multifactorial -Likely secondary to fluid overload, large left pleural effusion, pulmonary embolism Currently on heated hi flow 60% at 40lpm # Acute on chronic diastolic CHF --Likely acute on chronic systolic and diastolic CHF exacerbation, does have 2+ pitting edema ?Normal LV size with ejection fraction of 50 to 55%.? ?The basal inferior segment is somewhat dyskinetic.? Hypokinetic ?mid and apical inferior wall segment. ?Grade III/IV diastolic dysfunction (restrictive filling ?pattern), severely elevated filling pressures. -Currently on Bumex 1 mg iv q12h, will increase to 2mg iv q12h gievn worsening respiratory status, she is till net + 1.5L, will need to monitor renal function closely, starting to trend up. -Fluid restriction -left thoracocentesis, likely Tuesday . # Pulmonary Embolism : - subsegmental PE. Will not be considered eliquis failure as patient had been off her eliquis for nearly 2 weeks as she an EGD earlier this month for further evaluation of her pancreatic ca. 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 last dose given at 9:30 this morning. Will be holding the evening dose to enable thoracentesis tomorrow # Large pleural effusion Plannedd thoracenetsis on Tuesday On bumex until then Cannot d/c Plavix for thoracentesis given stent in January 2022. Holding lovenox this evening #Elevated troponins without significant delta, likely type 2 UT. Continue plavix 75mg po daily # Type 2 diabetes mellitus, low-dose sliding scale # History of severe aortic valve stenosis, per family she is planned for T[facility]R at [facility] Continue amiodarone, metoprolol # Pancreatic malignancy, diagnosed in [place], she has told me that she not a candidate for surgery, so she has to see Dr. Hernandez or Dr. Osman for chemotherapy evaluation but has not seen them yet. ?malignant effusion , will need cytology on pleural fluid # MAREK, creatinine worsening at 1.8 today, will need to monitor DVT ppx: Lovenox, can transition to Eliquis after thoracentesis FUll code Attestations Medical Necessity Statement*: continued admission for thoracentesis, iv diuresis Coding Level of Care Code Acute Graphite Grinder for Chg Fwd Diagnoses Pleural effusion J90 Pulmonary edema J81.1 Hypoxia R09.02 Pancreatic mass K86.89 Paroxysmal atrial fibrillation with RVR I48.0 Hypertension I10 Severe aortic valve stenosis I35.0 Atherosclerotic heart disease of [place] coronary artery with unstable angina pectoris I25.110 Hypothyroidism E03.9 Hyperlipidemia E78.5 Diabetes mellitus E11.9 CHF exacerbation I50.9 NSTEMI (non-ST elevated myocardial infarction) I21.4
[2022-04-04] MEDS: bumetanide 0.25 mg/mL SDV 10 mL 2 MG IVP (15:19)
[2022-04-04 17:06] LABS: Glucose Point of Care 250 mg/dL (70-110)
[2022-04-04] MEDS: allopurinol 300 mg Tablet PO (20:43)
[2022-04-04] MEDS: anastrozole 1 mg Tablet PO (20:43)
[2022-04-05] VITALS (15 sets, daily range): BP systolic 108–129; BP diastolic 57–79; PULSE 60–79; RESP 14–24; TEMP 36.4–36.6; O2SAT 90–96
[2022-04-05 00:11] LABS: Add Urine Microscopic? NO; Charge for UA Resulting for Rev
--- NOTE | 2022-04-05 00:18 | US_ITS ---
WS: [id number] ULTRASOUND-GUIDED THORACENTESIS HISTORY: left pleural effusion Procedure, risks, and complications were explained to the patient. With the patient in an upright pos ition, the skin over the LEFT posterior thorax was cleansed with ChloraPrep and anesthetized with 1% buffered lidocaine. A 5 [place] Yueh needle is inserted into the pleural fluid without complication. A pproximately 800 cc of very pale yellow pleural fluid is removed without difficulty. Specimen collected for analysis as requested. / thoracentesis [id number] IMPRESSION: 1. LEFT thoracentesis yielding 800 cc of fluid. 2. Chest radiograph to follow to evaluate for pneumothorax. 3. Specimen collected for analysis as requested.
[2022-04-05 00:22] LABS: Bilirubin Urine Neg (Negative); Blood Urine Neg (Negative); Glucose Urine UA Trace (Normal); Ketones Urine Negative (Negative); Nitrate Urine Negative (Negative); Protein Urine Neg (Negative); Urine Appearance Clear (CLEAR); Urine Color Straw (Yellow); pH Urine 5 (5-7)
[2022-04-05 00:23] LABS: Leukocyte Esterase Urine Negative (Negative); Urobilinogen Urine Norm (Negative)
[2022-04-05] MEDS: cefTRIAXone 1,000 MG in sodium chloride 0.9% (plus) 50 ML 100 MG IV (02:10)
[2022-04-05] MEDS: bumetanide 0.25 mg/mL SDV 10 mL 2 MG IVP ×2 (02:10→17:23)
[2022-04-05 05:32] LABS: INR 0.97 (0.8-1.2)
[2022-04-05 05:34] LABS: Alanine Aminotransferase 28 U/L (0-33); Albumin Level 4.2 g/dL (3.5-5.2); Alkaline Phosphatase 107 U/L (35-105); Aspartate Amino Transferase 20 U/L (0-32); Blood Urea Nitrogen 48 mg/dL (8-23); Calcium 8.9 mg/dL (8.5-10.5); Carbon Dioxide 21 mmol/L (22-29); Chloride 95 mmol/L (98-107); Globulin 2.8 g/dL (1.3-4.6); Glucose 291 mg/dL (65-115); Osmolality Calculated 303 mOsm/kg (285-295); Sodium 135 mmol/L (136-145); Total Bilirubin 0.3 mg/dL (0.15-1.2)
[2022-04-05 05:35] LABS: Anion Gap 23.1 (5-19); Potassium 4.1 mmol/L (3.5-5.1)
[2022-04-05 06:10] LABS: Glucose Point of Care 309 mg/dL (70-110)
[2022-04-05 08:06] LABS: Basophils % 0.2 %; Eosinophils % 0.3 %; Hematocrit 38.1 % (37.0-47.0); Hemoglobin 11.9 g/dL (11.5-15.3); Lymphocytes # 0.9 10^3/uL (0.8-4.8); Lymphocytes % 8.2 %; Mean Corpuscular HGB Conc 31.2 g/dL (30.0-36.0); Mean Corpuscular Hemoglobin 26.3 pg (28.0-34.0); Mean Corpuscular Volume 84.1 fl (81-99); Mean Platelet Volume 10.1 fL (7.4-10.4); Monocytes # 0.7 10^3/uL (0.2-0.9); Monocytes % 6.7 %; Neutrophils # 8.89 10^3/uL (1.8-7.7); Neutrophils % 83.9 %; Nucleated Red Blood Cells % 0 %; Platelet Count 241 10^3/cmm (130-400); Red Blood Count 4.53 10^6/uL (4.1-5.3); Red Cell Distribution Width 19.2 % (12.1-15.1); White Blood Count 10.6 10^3/uL (4.0-10.0)
[2022-04-05] MEDS: cyanocobalamin 1,000 mcg Tablet 1000 MCG PO (08:15)
[2022-04-05] MEDS: metoprolol succinate ER (24 HR) 50 mg Tablet PO (08:15)
[2022-04-05] MEDS: amlodipine 10 mg Tablet PO (08:15)
[2022-04-05] MEDS: amiodarone 200 mg Tablet PO (08:16)
[2022-04-05] MEDS: clopidogrel 75 mg Tablet PO (08:16)
[2022-04-05] MEDS: atorvastatin 40 mg Tablet PO (08:16)
[2022-04-05] MEDS: omega-3 fatty acids 1,000 mg Capsule 1000 MG PO (08:16)
[2022-04-05] MEDS: pantoprazole DR 40 mg Tablet PO (08:17)
[2022-04-05] MEDS: levothyroxine 100 mcg Tablet PO (08:18)
--- NOTE | 2022-04-05 09:08 | XR_ITS ---
WS: [id number] PORTABLE CHEST HISTORY: POST THORACENTESIS COMPARISON: 04/04/2022 Status post LEFT thoracentesis. Small residual LEFT pleural effusion and atelectatic lung. There is a lso very tiny RIGHT pleural effusion. Mild pulmonary congestion. No pneumothorax. Cardiac size: Mildly enlarged cardiac silhouette. Mediastinum/Aorta: Mild atherosclerosis aorta. Osteopenia. XR/XR chest 1V portable [id number] IMPRESSION: 1. No pneumothorax status post LEFT thoracentesis. 2. Very small residual LEFT pleural effusion with atelectatic lung.
[2022-04-05 09:51] LABS: Cyto Order Verification Order Verified
[2022-04-05 10:01] LABS: Body Fluid Polynuclear #Cells 0.166; Body Fluid WBC 421 /uL; Monocytes # Body Fluid 0.255
[2022-04-05 10:09] LABS: Apprearance, Body Fluid CLEAR; Color, Body Fluid PALE YELLOW
[2022-04-05 10:10] LABS: PATH Referral YES
[2022-04-05 10:47] LABS: Albumin Body Fluid 1.8 g/dL; Creatinine Body Fluid 1.45 (0.5-0.9); LDH Pleural Fluid 79 U/L; Pleural Fluid Cholesterol 38 mg/dL; Total Protein Pleural Fluid 2.5 g/dL; Triglycerides, Pleural Fluid 15 mg/dL
[2022-04-05 11:13] LABS: Lactate Dehydrogenase 313 U/L (135-214)
[2022-04-05 11:51] LABS: Glucose Point of Care 349 mg/dL (70-110)
--- NOTE | 2022-04-05 12:29 | PM.PN ---
Subjective Subjective: Patient was seen and examined this morning, stated that shortness of breath is improved, she was able to speak in full sentences, no obvious respiratory distress noted, status postthoracentesis left-sided with 750 cc pale yellow pleural fluid removed, chest x-ray status postthoracentesis, has shown, persistent small left pleural effusion, small right pleural effusion, no pneumothorax, pulmonary vascular congestion. Currently patient is on a dry flow oxygen through nasal cannula: 40 L/min flow, 50% FiO2, and is saturating well. Pleural fluid analysis is consistent with transudative pleural effusion likely due to decompensated heart failure Medications: Reviewed: Yes Medication Review Details: Generic Name Dose Route Start Last Admin Trade Name Freq PRN Reason Stop Dose Admin Allopurinol 300 mg 04/02/22 21:00 04/04/22 20:43 Allopurinol 300 Mg Tablet PO 300 mg BEDTIME PADMA Administration Amiodarone HCl 200 mg 04/02/22 09:00 04/05/22 08:16 Amiodarone 200 M g Tablet PO 200 mg DAILY PADMA Administration Amlodipine Besylat e 10 mg 04/02/22 09:00 04/05/22 08:15 Amlodipine 10 Mg Tablet PO 10 mg DAILY PADMA Administration Anastrozole 1 mg 04/02/22 21:00 04/04/22 20:43 Anastrozole 1 Mg Tablet PO 1 mg BEDTIME PADMA Administration Atorvastatin Calci um 40 mg 04/02/22 09:00 04/05/22 08:16 Atorvastatin 40 Mg Tablet PO 40 mg DAILY PADMA Administration Bumetanide 2 mg 04/04/22 15:00 04/05/22 02:10 Bumetanide 0.25 Mg/Ml Sdv 10 Ml IVP 2 mg Q12H PADMA Administration Clopidogrel Bisulf ate 75 mg 04/02/22 14:00 04/05/22 08:16 Clopidogrel 75 M g Tablet PO 75 mg DAILY PADMA Administration Cyanocobalamin 1,000 mcg 04/02/22 09:00 04/05/22 08:15 Cyanocobalamin 1 ,000 Mcg Tablet PO 1,000 mcg DAILY PADMA Administration Ceftriaxone Sodium 1,000 mg/ 50 mls @ 100 mls/ hr 04/02/22 02:15 04/05/22 02:57 Sodium Chloride IV 04/07/22 02:14 Infused Q24H PADMA Infusion Protocol Insulin Human Lisp ro 0 unit 04/02/22 08:00 04/05/22 08:18 Insulin Lispro 1 00 Unit/1 Ml SUBCUT Not Given TIDWM [facility] Protocol Levothyroxine Sodi um 100 mcg 04/02/22 09:00 04/05/22 08:18 Levothyroxine 10 0 Mcg Tablet PO 100 mcg DAILY PADMA Administration Metoprolol Succina te 50 mg 04/02/22 09:00 04/05/22 08:15 Metoprolol Succi nuria Er (24 Hr) 50 Mg Tablet PO 50 mg DAILY PADMA Administration Non-Formulary Medi cation 1 tab 04/02/22 09:00 04/05/22 08:18 Vit C,E-Zn-Coppr -Lutein-Zeaxan [Pr eservision Areds-2 ] PO Not Given BID [facility] Mjorr-1-[id number] Ethyl Esters 1,000 mg 04/02/22 09:00 04/05/22 08:16 [place]-3 Fatty Ac ids 1,000 Mg Capsu le PO 1,000 mg DAILY PADMA Administration Pantoprazole Sodiu m 40 mg 04/02/22 09:00 04/05/22 08:[address] 40 Mg Tablet PO 40 mg DAILY PADMA Administration Vitals/I&O/Wt Last Vital Signs Temp 97.8 F 04/05/22 07:13 Pulse 62 04/05/22 11:40 Resp 18 04/05/22 11:40 BP 118/79 04/05/22 11:14 Pulse Ox 96 04/05/22 11:40 O2 Del Method 04/05/22 07:13 O2 Flow Rate 40 04/05/22 11:40 FiO2 50 04/05/22 11:40 04/04/22 04/05/22 04/05/22 22:59 06:59 14:59 Intake Total 240 / 960 50 / 1010 Output Total 400 / 1300 1450 / 2750 350 / 350 Balance -160 / -340 -1400 / -1740 -350 / -350 Physical Exam HENMT: COMMON NORMALS: normocephalic and atraumatic HEAD & SCALP: normocephalic and atraumatic Resp: COMMON NORMALS: clear to auscultation bilaterally AUSCULTATION: clear to auscultation bilaterally OTHER: Diminished air entry at bases Cardio: COMMON NORMALS: regular rate, regular rhythm, S1 normal heart sound present, S2 normal heart sound present, No gallops present (Cardio), No rub (Cardio) and Peripheral pulses 2+ throughout RATE: regular rate RHYTHM: regular rhythm HEART SOUNDS: S1 normal heart sound present and S2 normal heart sound present PERIPHERAL PULSES: Peripheral pulses 2+ throughout OTHER: Ejection systolic murmur in aortic area GI: COMMON NORMALS: Normal to inspection, nondistended, normoactive bowel sounds present, Soft to palpation, non-tender, No hepatosplenomegaly present and no masses AUSCULTATION: Yes normoactive bowel sounds PALPATION: Yes Soft to palpation and Yes No hepatosplenomegaly present RECTAL EXAM: deferred Extremity: COMMON NORMALS: no clubbing, cyanosis or edema and no pedal edema Data 04/05/22 07:38 04/05/22 04:23 Micro: Microbiology 04/05/22 09:15 Gram Stain - Final Pleural Fluid A&P Assessment and plan (1) Pleural effusion: (2) Pulmonary edema: (3) Hypoxia: (4) Pancreatic mass: (5) Paroxysmal atrial fibrillation with RVR: (6) Hypertension: (7) Severe aortic valve stenosis: (8) Atherosclerotic heart disease of [place] coronary artery with unstable angina pectoris: (9) Hypothyroidism: (10) Hyperlipidemia: (11) Diabetes mellitus: (12) CHF exacerbation: (13) NSTEMI (non-ST elevated myocardial infarction): Plan #Acute hypoxic respiratory failure - multifactorial -Likely secondary to fluid overload, large left pleural effusion, pulmonary embolism Currently on heated hi flow 50% at 40lpm #Acute on chronic decompensated heart failure with preserved ejection fraction: --Likely acute on chronic systolic and diastolic CHF exacerbation, does have 2+ pitting edema ?Normal LV size with ejection fraction of 50 to 55%.? ?The basal inferior segment is somewhat dyskinetic.? Hypokinetic ?mid and apical inferior wall segment. ?Grade III/IV diastolic dysfunction (restrictive filling ?pattern), severely elevated filling pressures. -Currently on Bumex 1 mg iv q12h, will increase to 2mg iv q12h gievn worsening respiratory status, she is till net + 1.5L, will need to monitor renal function closely, starting to trend up. -Fluid restriction -S/p left thoracocentesis, #Severe aortic valve stenosis: Valve area of 0.5 cm2; the ?peak velocity of 4.46 m/s, peak gradient of 75.7 with a mean gradient of 32.4 mmHg. Patient is currently being worked up as outpatient for TAVR at [facility]. Follow cardiology as outpatient. # Pulmonary Embolism : - subsegmental PE. Will not be considered eliquis failure as patient had been off her eliquis for nearly 2 weeks as she an EGD earlier this month for further evaluation of her pancreatic ca. 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 Pleural fluid analysis is consistent with transudative pleural effusion likely due to decompensated heart failure. Follow pleural fluid cytology On bumex Cannot d/c Plavix for thoracentesis given stent in January 2022. #Elevated troponins without significant delta, likely type 2 [place]. Continue plavix 75mg po daily # Type 2 diabetes mellitus, low-dose sliding scale #History of paroxysmal atrial fibrillation Continue amiodarone, metoprolol # Pancreatic malignancy, diagnosed in [place], she has told me that she not a candidate for surgery, so she has to see Dr. Hernandez or Dr. Osman for chemotherapy evaluation but has not seen them yet. ?malignant effusion , will need cytology on pleural fluid # MAREK, creatinine worsening at 1.8 today, will need to monitor DVT ppx: Lovenox, can transition to Eliquis after thoracentesis FUll code Attestations Medical Necessity Statement*: Patient is in hospital management of acute hypoxic respiratory failure. Coding Level of Care Code Acute Dredge Lever Operator for g Fwd Exam Detailed Diagnoses Pleural effusion J90 Pulmonary edema J81.1 Hypoxia R09.02 Pancreatic mass K86.89 Paroxysmal atrial fibrillation with RVR I48.0 Hypertension I10 Severe aortic valve stenosis I35.0 Atherosclerotic heart disease of [place] coronary artery with unstable angina pectoris I25.110 Hypothyroidism E03.9 Hyperlipidemia E78.5 Diabetes mellitus E11.9 CHF exacerbation I50.9 NSTEMI (non-ST elevated myocardial infarction) I21.4
[2022-04-05] MEDS: insulin lispro 100 unit/1 mL SUBCUT ×2 (13:21→18:21)
[2022-04-05 17:30] LABS: Glucose Point of Care 199 mg/dL (70-110)
[2022-04-05] MEDS: anastrozole 1 mg Tablet PO (20:41)
[2022-04-05] MEDS: allopurinol 300 mg Tablet PO (20:41)
[2022-04-05 21:05] LABS: Glucose Point of Care 226 mg/dL (70-110)
[2022-04-06] VITALS (12 sets, daily range): BP systolic 113–124; BP diastolic 55–62; PULSE 66–78; RESP 13–27; TEMP 36.6–37.1; O2SAT 90–100
[2022-04-06] MEDS: bumetanide 0.25 mg/mL SDV 10 mL 2 MG IVP (02:38)
[2022-04-06] MEDS: cefTRIAXone 1,000 MG in sodium chloride 0.9% (plus) 50 ML 100 MG IV (02:38)
[2022-04-06 03:42] LABS: Basophils % 0.3 %; Eosinophils # 0.1 10^3/uL (0.0-0.8); Eosinophils % 0.6 %; Hematocrit 35.9 % (37.0-47.0); Lymphocytes # 0.9 10^3/uL (0.8-4.8); Mean Corpuscular HGB Conc 30.6 g/dL (30.0-36.0); Mean Corpuscular Hemoglobin 25.9 pg (28.0-34.0); Mean Corpuscular Volume 84.5 fl (81-99); Mean Platelet Volume 10.4 fL (7.4-10.4); Monocytes # 0.8 10^3/uL (0.2-0.9); Monocytes % 7.3 %; Neutrophils # 8.58 10^3/uL (1.8-7.7); Neutrophils % 82.2 %; Nucleated Red Blood Cells % 0 %; Platelet Count 255 10^3/cmm (130-400); Red Blood Count 4.25 10^6/uL (4.1-5.3); White Blood Count 10.4 10^3/uL (4.0-10.0)
[2022-04-06 04:07] LABS: Alanine Aminotransferase 19 U/L (0-33); Albumin Level 3.7 g/dL (3.5-5.2); Alkaline Phosphatase 99 U/L (35-105); Anion Gap 19.1 (5-19); Aspartate Amino Transferase 13 U/L (0-32); Blood Urea Nitrogen 52 mg/dL (8-23); Calcium 8.8 mg/dL (8.5-10.5); Carbon Dioxide 23 mmol/L (22-29); Chloride 98 mmol/L (98-107); Globulin 3.1 g/dL (1.3-4.6); Glucose 245 mg/dL (65-115); Osmolality Calculated 304 mOsm/kg (285-295); Potassium 4.1 mmol/L (3.5-5.1); Sodium 136 mmol/L (136-145); Total Bilirubin 0.2 mg/dL (0.15-1.2); Total Protein 6.8 g/dL (6.6-8.7)
--- NOTE | 2022-04-06 05:00 | XRR_ITS ---
PROCEDURE INFORMATION: Exam: XR Chest Exam date and time: 04/06/2022 5:14 AM Age: 81 years old Clinical indication: Condition or disease; Lung condition and disease; Other: Not specified; Prior surgery; Surgery type: Mastectomy, thyroidectomy; Patient HX: F/u for left pleural effusion. On high flow 02. ; Additional info: Lt pleural effusion TECHNIQUE: Imaging protocol: Radiologic exam of the chest. Views: 1 view. COMPARISON: CR XR chest 1V portable [id number] 04/05/2022 9:27 AM FINDINGS: Lungs: Lung volumes are decreased but stable. Pulmonary vasculature is indistinct with mild peribronchial cuffing likely secondary to pulmonary congestion improved from previous exam. There are some indistinct streaky retrocardiac opacities likely representing residual subsegmental atelectasis. There is evidence of bibasilar pleural effusions larger on the left improved from previous examination and likely cardiogenic in nature.. Pleural spaces: See Lungs finding. Heart/Mediastinum: Cardiac silhouette is enlarged but unchanged. Bones/joints: Unremarkable for age. XR/XR chest 1V portable [id number] IMPRESSION: 1. Cardiomegaly with mild CHF pattern improved from previous exam. 2. Superimposed bibasilar subsegmental atelectasis also improved from previous exam.
[2022-04-06 06:56] LABS: Glucose Point of Care 261 mg/dL (70-110)
[2022-04-06] MEDS: enoxaparin 80 mg/0.8 mL Syringe SUBCUT (08:30)
[2022-04-06] MEDS: levothyroxine 100 mcg Tablet PO (08:30)
[2022-04-06] MEDS: cyanocobalamin 1,000 mcg Tablet 1000 MCG PO (08:30)
[2022-04-06] MEDS: omega-3 fatty acids 1,000 mg Capsule 1000 MG PO (08:30)
[2022-04-06] MEDS: amiodarone 200 mg Tablet PO (08:31)
[2022-04-06] MEDS: clopidogrel 75 mg Tablet PO (08:31)
[2022-04-06] MEDS: pantoprazole DR 40 mg Tablet PO (08:31)
[2022-04-06] MEDS: atorvastatin 40 mg Tablet PO (08:31)
[2022-04-06] MEDS: insulin lispro 100 unit/1 mL SUBCUT ×2 (08:31→12:08)
[2022-04-06] MEDS: amlodipine 10 mg Tablet PO (08:31)
[2022-04-06] MEDS: metoprolol succinate ER (24 HR) 50 mg Tablet PO (08:31)
[2022-04-06 11:34] LABS: Glucose Point of Care 288 mg/dL (70-110)
--- NOTE | 2022-04-06 13:59 | P.DS_ITS ---
Discharge Providers Date of Admission: 04/01/22 22:24 Date of Discharge: April 06, 2022 Attending Provider at Admission: Bishop Small MD Attending Provider at Discharge: Roscoe Clifton MD Primary Care Provider: MOISES Suárez Diagnoses at Discharge Discharge Diagnosis (1) Pleural effusion: Status: Acute (2) Pulmonary edema: Status: Acute (3) Hypoxia: Status: Acute (4) Pancreatic mass: Status: Acute (5) Paroxysmal atrial fibrillation with RVR: Status: Acute Permanent problem details: 4.5 sec pause with beta abel therapy- now on amiodarone (6) Hypertension: Status: Acute (7) Severe aortic valve stenosis: Status: Acute Permanent problem details: Referred to Dr. Pickard for TAVR (8) Atherosclerotic heart disease of [place] coronary artery with unstable angina pectoris: Status: Acute (9) Hypothyroidism: Status: Acute (10) Hyperlipidemia: Status: Acute (11) Diabetes mellitus: Status: Acute (12) CHF exacerbation: Status: Acute (13) NSTEMI (non-ST elevated myocardial infarction): Status: Acute Reason for Visit Reason for Visit: low heart rate sent by [facility] Hospital Course Hospital Course 81 year old female with a past history [id number] type 2 diabetes mellitus, hyperlipidemia, hypertension, hypothyroidism, aortic stenosis, currently not a candidate for TAVR given recent diagnosis of pancreatic cancer, recent history of PCI and stenting to LAD, A. fib with RVR on Eliquis, recently diagnosed with a pancreatic cancer, most of the work-up was done in [place] not a surgical candidate, undergoing evaluation for chemotherapy came in with chief complaint of worsening shortness of breath, as well as worsening bilateral lower extremity swelling, she was admitted for the management of acute hypoxic respiratory failure multifactorial secondary to decompensated heart failure with preserved ejection fraction, Bilateral pleural effusion, Large left and [id number] right pleural effusions, severe aortic stenosis, patient was Kept on IV diuresis, underwent left-sided thoracentesis with removal of 750 cc yellow transudative pleural effusion likely secondary to decompensated heart failure, pleural fluid cytology was negative for malignancy. For newly diagnosed pulmonary embolism she was initially kept on heparin drip later transitioned to Lovenox, was being discharged on Eliquis, which she has been taking, in the past for A. fib, she has been asked to take 10 mg p.o. twice daily for next 7 days, followed by 5 mg p.o. twice daily thereafter, H&H was stable during the hospital stay. Chest x-ray prior to discharge has shown significant resolution of left-sided pleural effusion, with mild right-sided pleural effusion, patient is being discharged on Bumex 2 mg p.o. daily, she has been asked to follow-up with Cher Lynn in 1 week with repeat BMP, at that time dose adjustment regarding Bumex can be done. She was also managed for type II NSTEMI. Patient has underlying CKD: She was discharged on her baseline serum creatinine.For her severe aortic stenosis she will continue to follow cardiology as outpatient. Overall patient has responded well to above medical management At the time of discharge, she did not qualified for any home oxygen. She is being discharged in stable condition to home. She will continue to follow PCP as well as cardiology as outpatient. Physical Exam HENMT: COMMON NORMALS: normocephalic and atraumatic HEAD & SCALP: normocephalic and atraumatic Resp: COMMON NORMALS: clear to auscultation bilaterally AUSCULTATION: clear to auscultation bilaterally OTHER: Minimally diminished air entry at bases Cardio: COMMON NORMALS: regular rate, regular rhythm, S1 normal heart sound present, S2 normal heart sound present, No gallops present (Cardio), No rub (Cardio) and Peripheral pulses 2+ throughout RATE: regular rate RHYTHM: regular rhythm HEART SOUNDS: S1 normal heart sound present and S2 normal heart sound present PERIPHERAL PULSES: Peripheral pulses 2+ throughout OTHER: Ejection systolic murmur in aortic area GI: COMMON NORMALS: Normal to inspection, nondistended, normoactive bowel sounds present, Soft to palpation, non-tender, No hepatosplenomegaly present and no masses AUSCULTATION: Yes normoactive bowel sounds PALPATION: Yes Soft to palpation and Yes No hepatosplenomegaly present RECTAL EXAM: deferred Extremity: COMMON NORMALS: no clubbing, cyanosis or edema and no pedal edema Discharge Data Studies Completed and Pending Completed Studies During Hospitalization Category Date Time Status CT angio chest PE protcl [id number] Stat Cat Scan 04/01/22 22:59 Completed XR chest 1V portable [id number] Routine Exams 04/04/22 03:21 Completed XR chest 1V portable [id number] Routine Exams 04/06/22 05:00 Completed XR chest 1V portable [id number] Stat Exams 04/05/22 09:08 Completed XR chest 1V portable [id number] Stat Exams 04/01/22 19:09 [place] [id number] Routine Ultrasound 04/02/22 12:32 Completed US thoracentesis [id number] Routine Ultrasound 04/05/22 00:18 Completed Pending at discharge Category Date Time Status Anaerobic Culture Routine Lab 04/02/22 10:33 Results Body Fluid Culture & GS Routine Lab 04/02/22 10:33 Results CBC Auto Diff [Complete Blood Count w/Auto] AM LABS Lab 04/07/22 04:00 Ordered CBC Auto Diff [Complete Blood Count w/Auto] AM LABS Lab 04/08/22 04:00 Ordered CMP [Comprehensive Metabolic Panel] AM LABS Lab 04/07/22 04:00 Ordered CMP [Comprehensive Metabolic Panel] AM LABS Lab 04/08/22 04:00 Ordered Sputum Culture and Gram Stain Stat Lab 04/02/22 02:07 Uncollected Cytology [PTH] Routine Pth 04/02/22 10:33 Received Radiology Impressions Chest CTA 04/01/22 22:59 IMPRESSION: 1. Positive for subsegmental lower lobe pulmonary embolism as described above. 2. Redemonstration of stable additional intrathoracic findings. Bilateral, left more than right pleural effusions and adjacent atelectasis. Scattered patchy airspace and nodular opacities may represent multifocal pneumonia. Underlying nodules or lesions can not be excluded. Attention on short-term follow-up chest CT within 3 -6 months is recommended according to Fleischner criteria. 3. Partially imaged upper abdominal findings similar to the prior. 4. Prior left mastectomy. Findings were discussed with Dr. Small by Dr. Tirado on 04/02/2022 at 1:02 a.m. with read back comprehension and verification. ADDENDUM: 04/02/22 0118 Redemonstration of cholelithiasis. Thoracentesis Ultrasound 04/05/22 00:18 IMPRESSION: 1. LEFT thoracentesis yielding 800 cc of fluid. 2. Chest radiograph to follow to evaluate for pneumothorax. 3. Specimen collected for analysis as requested. Chest X-Ray 04/06/22 05:00 IMPRESSION: 1. Cardiomegaly with mild CHF pattern improved from previous exam. 2. Superimposed bibasilar subsegmental atelectasis also improved from previous exam. Laboratory Results WBC 10.4 10^3/uL (4.0-10.0) H 04/06/22 03:18 Corrected WBC Cancelled 04/05/22 06:28 RBC 4.25 10^6/uL (4.1-5.3) 04/06/22 03:18 Hgb 11.0 g/dL (11.5-15.3) L 04/06/22 03:18 Hct 35.9 % (37.0-47.0) L 04/06/22 03:18 MCV 84.5 fl (81-99) 04/06/22 03:18 MCH 25.9 pg (28.0-34.0) L 04/06/22 03:18 MCHC 30.6 g/dL (30.0-36.0) 04/06/22 03:18 RDW 19.0 % (12.1-15.1) H 04/06/22 03:18 Plt Count 255 10^3/cmm (130-400) 04/06/22 03:18 MPV 10.4 fL (7.4-10.4) 04/06/22 03:18 Gran % Cancelled 04/05/22 06:28 Neut % (Auto) 82.2 % 04/06/22 03:18 Lymph % (Auto) 9.0 % 04/06/22 03:18 [place] % (Auto) 7.3 % 04/06/22 03:18 Eos % (Auto) 0.6 % 04/06/22 03:18 Baso % (Auto) 0.3 % 04/06/22 03:18 Neut # (Auto) 8.58 10^3/uL (1.8-7.7) H 04/06/22 03:18 Lymph # (Auto) 0.9 10^3/uL (0.8-4.8) 04/06/22 03:18 [place] # (Auto) 0.8 10^3/uL (0.2-0.9) 04/06/22 03:18 Eos # (Auto) 0.1 10^3/uL (0.0-0.8) 04/06/22 03:18 Baso # (Auto) 0.0 10^3/uL (0.0-0.1) 04/06/22 03:18 Absolute Gran (auto) Cancelled 04/05/22 06:28 Nucleated RBC % (auto) 0 % 04/06/22 03:18 Nucleated RBCs # 0.0 /100WBC 04/06/22 03:18 Differential Comment Yes 04/05/22 09:15 PT 13.20 SECONDS (12.1-14.9) 04/05/22 04:23 INR 0.97 (0.8-1.2) 04/05/22 04:23 APTT 54.7 SECONDS (23.9-36.7) H 04/03/22 12:13 D-Dimer 2.49 ug/mIFEU (0-0.59) H 04/01/22 20:20 Specimen Type Arterial 04/04/22 03:55 Sample Site Radial, right 04/04/22 03:55 ABG pH 7.40 (7.35-7.45) 04/04/22 03:55 ABG pCO2 34.1 mmHg (35-45) L 04/04/22 03:55 ABG pO2 53.2 mmHg (80.0-100.0) L 04/04/22 03:55 ABG HCO3 21.3 mmol/L (22-26) L 04/04/22 03:55 ABG Base Excess -2.9 mmol/L (-2.0-2.0) L 04/04/22 03:55 Dagoberto Test Pos 04/04/22 03:55 Hematocrit 35.5 % (37-47) L 04/04/22 03:55 O2 Delivery Device Oxy mask 04/04/22 03:55 O2 Liters/Min 2.0 % 04/01/22 03:45 Family Support Worker ID Cristopher 04/04/22 03:55 Sodium 136 mmol/L (136-145) 04/06/22 03:18 Potassium 4.1 mmol/L (3.5-5.1) 04/06/22 03:18 Chloride 98 mmol/L (98-107) 04/06/22 03:18 Carbon Dioxide 23 mmol/L (22-29) 04/06/22 03:18 Anion Gap 19.1 (5-19) H 04/06/22 03:18 BUN 52 mg/dL (8-23) H 04/06/22 03:18 Creatinine 1.4 mg/dL (0.5-0.9) H 04/06/22 03:18 GFR Calculation Not Reportable 04/06/22 03:18 Glucose 245 mg/dL (65-115) H 04/06/22 03:18 POC Glucose 288 mg/dL (70-110) H 04/06/22 11:14 Calculated Osmolality 304 mOsm/kg (285-295) H 04/06/22 03:18 Calcium 8.8 mg/dL (8.5-10.5) 04/06/22 03:18 Phosphorus 3.5 mg/dL (2.5-4.5) 04/02/22 01:17 Phosphorus Cancelled 04/02/22 01:17 Magnesium 1.9 mg/dL (1.7-2.3) 04/02/22 01:17 Magnesium Cancelled 04/02/22 01:17 Total Bilirubin 0.2 mg/dL (0.15-1.2) 04/06/22 03:18 AST 13 U/L (0-32) 04/06/22 03:18 ALT 19 U/L (0-33) 04/06/22 03:18 Alkaline Phosphatase 99 U/L (35-105) 04/06/22 03:18 Lactate Dehydrogenase 313 U/L (135-214) H 04/05/22 04:23 Troponin T Baseline 92 ng/L (0-10) H 04/01/22 20:20 Troponin T 120 Minute 93.30 ng/L (0-10) H 04/01/22 22:14 Delta Troponin T 1.30 ABS# (0-10) 04/01/22 22:14 Troponin T Hi Sens 6Hr 93.74 ng/L (0-10) H 04/02/22 01:17 Troponin T Hi Sens 6Hr Delta 1.74 ng/L (0-12) 04/02/22 01:17 C-Reactive Protein 19.3 mg/L (0.0-4.9) H 04/02/22 01:17 NT-Pro-B Natriuret Pep 18005 pg/mL (0-450) H 04/01/22 20:20 Total Protein 6.8 g/dL (6.6-8.7) 04/06/22 03:18 Albumin 3.7 g/dL (3.5-5.2) 04/06/22 03:18 Globulin 3.1 g/dL (1.3-4.6) 04/06/22 03:18 Procalcitonin 0.07 ng/mL (0-0.5) 04/02/22 01:17 Urine Color Straw (Yellow) 04/05/22 00:07 Urine Appearance Clear (CLEAR) 04/05/22 00:07 Urine pH 5 (5-7) 04/05/22 00:07 Ur Specific [place] 1.010 (1.005-1.030) 04/05/22 00:07 Urine Protein Neg (Negative) 04/05/22 00:07 Urine Glucose (UA) Trace (Normal) H 04/05/22 00:07 Urine Ketones Negative (Negative) 04/05/22 00:07 Urine Blood Neg (Negative) 04/05/22 00:07 Urine Nitrate Negative (Negative) 04/05/22 00:07 Urine Bilirubin Neg (Negative) 04/05/22 00:07 Urine Urobilinogen Norm mg/dL (Negative) 04/05/22 00:07 Ur Leukocyte Esterase Negative (Negative) 04/05/22 00:07 Fluid Color Pale yellow 04/05/22 09:15 Fluid Appearance Clear 04/05/22 09:15 Fluid WBC 421 /uL 04/05/22 09:15 Fluid RBC 1.000 10^3/uL 04/05/22 09:15 Fluid Hematocrit 0.0 % 04/05/22 09:15 Fld Polynuclear WBCs # 0.166 04/05/22 09:15 Fld Polynuclear WBCs % 39.500 % 04/05/22 09:15 Fl Mononucl WBCs #(Auto) 0.255 04/05/22 09:15 Fl Mononuclear % Auto 60.500 % 04/05/22 09:15 Fluid Albumin 1.8 g/dL 04/05/22 09:15 Fluid Creatinine 1.45 (0.5-0.9) H 04/05/22 09:15 Pleural pH 8.00 (6.5-7.5) H 04/05/22 09:15 Pleural Total Protein 2.5 g/dL 04/05/22 09:15 Pleural LDH 79 U/L 04/05/22 09:15 Pleural Glucose 300.0 mg/dL 04/05/22 09:15 Pleural Amylase 30.0 U/L 04/05/22 09:15 Pleural Cholesterol 38 mg/dL 04/05/22 09:15 Pleural Triglycerides 15 mg/dL 04/05/22 09:15 Nasal Influ A H1 2009 PCR Not detected (NOT DETECT) 04/04/22 10:15 Adenovirus (PCR) Not detected (NOT DETECT) 04/04/22 10:15 C. pneumoniae DNA (PCR) Not detected (NOT DETECT) 04/04/22 10:15 Coronavirus 229E (PCR) Not detected (NOT DETECT) 04/04/22 10:15 Human Metapneumovir PCR Not detected (NOT DETECT) 04/04/22 10:15 Influenza A (H1) PCR Not detected (NOT DETECT) 04/04/22 10:15 Influenza A (H3) PCR Not detected (NOT DETECT) 04/04/22 10:15 Influenza Type A (PCR) Not detected (NOT DETECT) 04/04/22 10:15 Influenza Type B (PCR) Not detected (NOT DETECT) 04/04/22 10:15 M. pneumoniae (PCR) Not detected (NOT DETECT) 04/04/22 10:15 Parainfluenza 1 (PCR) Not detected (NOT DETECT) 04/04/22 10:15 Parainfluenza 2 (PCR) Not detected (NOT DETECT) 04/04/22 10:15 Parainfluenza 3 (PCR) Not detected (NOT DETECT) 04/04/22 10:15 Parainfluenza 4 (PCR) Not detected (NOT DETECT) 04/04/22 10:15 RSV Type A (PCR) Not detected (NOT DETECT) 04/04/22 10:15 RSV Type B (PCR) Not detected (NOT DETECT) 04/04/22 10:15 Entero/Rhino (PCR) Not detected (NOT DETECT) 04/04/22 10:15 SARS-CoV-2 (PCR) Not detected (NOT DETECT) 04/04/22 10:15 Vitals Last Vital Signs Temp 98.7 F 04/06/22 11:15 Pulse 77 04/06/22 11:31 Resp 16 04/06/22 11:31 BP 113/55 04/06/22 11:15 Pulse Ox 93 04/06/22 13:38 O2 Del Method 04/06/22 11:15 O2 Flow Rate 3 04/06/22 11:31 FiO2 40 04/06/22 07:34 Discharge Plan Discharge Patient Disposition: Home Condition: Stable Prescriptions: New amoxicillin-pot clavulanate [Augmentin] 500-125 mg tablet 1 tab PO DAILY Qty: 5 0RF Eliquis 5 mg tablet 5 mg PO BID Qty: 60 3RF Rx Instructions: 10 mg po BID FOR NEXT 7 DAYS AND THEREAFTER 5 MG PO BID Continued Farxiga 10 mg tablet 10 mg PO DAILY metoprolol succinate 50 mg tablet extended release 24 hr 50 mg PO DAILY atorvastatin 40 mg tablet 40 mg PO DAILY clopidogrel 75 mg tablet 75 mg PO DAILY amlodipine 10 mg tablet 10 mg PO DAILY amiodarone 200 mg tablet 200 mg PO DAILY pantoprazole 40 mg tablet,delayed release (DR/EC) 40 mg PO DAILY cyanocobalamin (vitamin B-12) 1,000 mcg capsule 1,000 mcg PO DAILY levothyroxine 125 mcg tablet 100 mcg PO DAILY omega-3 fatty acids 1,000 mg Capsule 1,000 mg PO DAILY allopurinol 300 mg tablet 300 mg PO BEDTIME PreserVision AREDS-2 250-90-40-1 mg Capsule 1 tab PO BID Caltrate 600 plus D 600 mg-20 mcg (800 unit) Tablet,Chewable 1 tab PO DAILY bumetanide 2 mg tablet 2 mg PO DAILY 30 Days Qty: 30 1RF Discontinued Eliquis 5 mg tablet 5 mg PO Q12H Qty: 180 3RF Discharge Orders: Discharge Order (Routine); Ordered 04/06/22 Ordered By: Roscoe Clifton Other Ambulatory Orders: Comprehensive Metabolic Panel (Routine) Timeframe: 1 Week Facility: [facility] - Location: Lab - Main Lab Ordered By: Roscoe Clifton DME: Miscellaneous (Order) Location: None Selected Ordered By: Chaya Faustin Referrals: Cher Lynn FNP [Nurse Practitioner] - 1 week Keyona Karimi FNP [Primary Care Provider] - 1 week Patient Instructions: Bumetanide (By mouth) (Bumex), Amoxicillin/Clavulanate Potassium (By mouth), Clopidogrel (By mouth) (Plavix), Apixaban (By mouth) (Eliquis), Heart Failure (DC), Opioid Safety Discharge Attestations Time Spent in Discharge Care*: greater than 30 min Quality Metrics Clinical Quality Measures [ No reported AMI, CVA or VTE this stay] Coding Level of Care Code Acute Chg FW DC note Exam Detailed Diagnoses Pleural effusion J90 Pulmonary edema J81.1 Hypoxia R09.02 Pancreatic mass K86.89 Paroxysmal atrial fibrillation with RVR I48.0 Hypertension I10 Severe aortic valve stenosis I35.0 Atherosclerotic heart disease of [place] coronary artery with unstable angina pectoris I25.110 Hypothyroidism E03.9 Hyperlipidemia E78.5 Diabetes mellitus E11.9 CHF exacerbation I50.9 NSTEMI (non-ST elevated myocardial infarction) I21.4
--- NOTE | 2022-04-06 14:35 | PC.SOCIAL ---
IMM Updated Updated pt & family on IMM. No questions voiced. Provided pt a copy. Initialed, dated, & timed copy in chart.
== END 2022-04-06 15:35 | disposition home health service (06) | DRG 280 ==
LOC: ER 21:54 → CSU 22:25
PROVIDERS: Emergency Medicine; Student in an Organized Health Care Education/Training Program; Admitting Provider Family Medicine; Emergency Provider Emergency Medicine; PCP Nurse Practitioner Family; Visit Provider Internal Medicine
DX: I13.0 Hypertensive heart and chronic kidney disease with heart failure and stage 1 through stage 4 chronic kidney disease, or unspecified chronic kidney disease (principal); I26.93 Single subsegmental thrombotic pulmonary embolism without acute cor pulmonale; I21.A1 Myocardial infarction type 2; I50.33 Acute on chronic diastolic (congestive) heart failure; J69.0 Pneumonitis due to inhalation of food and vomit; J96.01 Acute respiratory failure with hypoxia; C25.9 Malignant neoplasm of pancreas, unspecified; N17.9 Acute kidney failure, unspecified; N18.9 Chronic kidney disease, unspecified; E11.22 Type 2 diabetes mellitus with diabetic chronic kidney disease; I48.0 Paroxysmal atrial fibrillation; I35.0 Nonrheumatic aortic (valve) stenosis; I25.10 Atherosclerotic heart disease of native coronary artery without angina pectoris; Z95.5 Presence of coronary angioplasty implant and graft; E89.0 Postprocedural hypothyroidism; E78.5 Hyperlipidemia, unspecified; Z90.12 Acquired absence of left breast and nipple; Z79.02 Long term (current) use of antithrombotics/antiplatelets; Z85.3 Personal history of malignant neoplasm of breast; M10.9 Gout, unspecified
CPT/HCPCS: 32555; 36415; 36416; 36600; 71045; 71275; 80048; 80053; 80503; 81003; 82042; 82150; 82465; 82570; 82803; 82945; 82962; 83615; 83735; 83880; 83986; 84100; 84145; 84157; 84478; 84484; 85014; 85025; 85378; 85610; 85730; 86140; 87070; 87075; 87205; 87486; 87581; 87633; 88108; 88305; 89050; 93005; 93970; 94664; 94760; 96372; 96374; 99285; J0456; J0696; J1200; J1644; J1650; J1815; J1940; J2930; J3490; J7050; J8999; Q9967

== ENCOUNTER → 2022-04-13 15:10 | Outpatient (BNVA) | payer MEDICARE, OTHER, SELFPAY | PROVIDERS: PCP Nurse Practitioner Family; Visit Provider Nurse Practitioner Family | DX: I48.0 Paroxysmal atrial fibrillation (principal); I25.110 Atherosclerotic heart disease of native coronary artery with unstable angina pectoris; I11.0 Hypertensive heart disease with heart failure; I50.9 Heart failure, unspecified; Z79.01 Long term (current) use of anticoagulants; Z87.891 Personal history of nicotine dependence; I25.2 Old myocardial infarction | CPT/HCPCS: 99214 ==

== ENCOUNTER 2022-04-20 15:44 | Oncology outpatient (recurring) (ONCR) | payer MEDICARE, OTHER, SELFPAY | END 2022-05-04 23:59 | disposition home or self-care (01) | PROVIDERS: PCP Nurse Practitioner Family; Visit Provider Internal Medicine Hematology & Oncology | DX: C25.2 Malignant neoplasm of tail of pancreas (principal); I35.0 Nonrheumatic aortic (valve) stenosis; Z87.891 Personal history of nicotine dependence | CPT/HCPCS: 99204 ==

== ENCOUNTER 2022-05-28 09:32 | Oncology outpatient (recurring) (ONCR) | payer MEDICARE, OTHER, SELFPAY ==
[2022-05-28 10:09] LABS: Basophils # 0.1 10^3/uL (0.0-0.1); Basophils % 0.6 %; Eosinophils # 0.1 10^3/uL (0.0-0.8); Eosinophils % 0.6 %; Hemoglobin 11.8 g/dL (11.5-15.3); Lymphocytes # 1.3 10^3/uL (0.8-4.8); Lymphocytes % 15.4 %; Mean Corpuscular HGB Conc 31.9 g/dL (30.0-36.0); Mean Corpuscular Hemoglobin 27.1 pg (28.0-34.0); Mean Corpuscular Volume 85.1 fl (81-99); Mean Platelet Volume 9.7 fL (7.4-10.4); Monocytes # 0.8 10^3/uL (0.2-0.9); Monocytes % 9.1 %; Neutrophils # 6.28 10^3/uL (1.8-7.7); Neutrophils % 73.6 %; Nucleated Red Blood Cells % 0 %; Platelet Count 243 10^3/cmm (130-400); Red Blood Count 4.35 10^6/uL (4.1-5.3); Red Cell Distribution Width 20.2 % (12.1-15.1); White Blood Count 8.5 10^3/uL (4.0-10.0)
[2022-05-28 10:33] LABS: Alanine Aminotransferase 17 U/L (0-33); Albumin Level 4.3 g/dL (3.5-5.2); Alkaline Phosphatase 111 U/L (35-105); Anion Gap 19.1 (5-19); Aspartate Amino Transferase 24 U/L (0-32); Blood Urea Nitrogen 52 mg/dL (8-23); Calcium 10.2 mg/dL (8.5-10.5); Carbon Dioxide 26 mmol/L (22-29); Chloride 93 mmol/L (98-107); Globulin 3.5 g/dL (1.3-4.6); Glucose 195 mg/dL (65-115); Osmolality Calculated 297 mOsm/kg (285-295); Potassium 4.1 mmol/L (3.5-5.1); Sodium 134 mmol/L (136-145); Total Bilirubin 0.5 mg/dL (0.15-1.2); Total Protein 7.8 g/dL (6.6-8.7)
[2022-05-28 10:58] LABS: Cancer Antigen 19 9 > 10000 U/mL (0-35)
== END 2022-06-01 23:59 | disposition home or self-care (01) ==
PROVIDERS: PCP Nurse Practitioner Family; Visit Provider Internal Medicine Hematology & Oncology
DX: C25.2 Malignant neoplasm of tail of pancreas (principal); Z85.3 Personal history of malignant neoplasm of breast; Z85.42 Personal history of malignant neoplasm of other parts of uterus; I35.0 Nonrheumatic aortic (valve) stenosis
CPT/HCPCS: 36591; 80053; 85025; 86301; 99214

== ENCOUNTER → 2022-06-15 10:48 | Outpatient (BNVA) | payer MEDICARE, OTHER, SELFPAY | PROVIDERS: PCP Nurse Practitioner Family; Visit Provider Nurse Practitioner Family | DX: C25.2 Malignant neoplasm of tail of pancreas (principal) | CPT/HCPCS: 99214 ==

== ENCOUNTER 2022-06-22 08:00 | Oncology outpatient (recurring) (ONCR) | payer MEDICARE, OTHER, SELFPAY ==
[2022-06-15 11:58] LABS: Basophils % 0.4 %; Eosinophils # 0.1 10^3/uL (0.0-0.8); Eosinophils % 0.7 %; Hematocrit 35.1 % (37.0-47.0); Hemoglobin 11.2 g/dL (11.5-15.3); Lymphocytes # 1.2 10^3/uL (0.8-4.8); Lymphocytes % 15.5 %; Mean Corpuscular HGB Conc 31.9 g/dL (30.0-36.0); Mean Corpuscular Hemoglobin 27.8 pg (28.0-34.0); Mean Corpuscular Volume 87.1 fl (81-99); Mean Platelet Volume 9.6 fL (7.4-10.4); Monocytes # 0.6 10^3/uL (0.2-0.9); Monocytes % 7.5 %; Neutrophils # 5.64 10^3/uL (1.8-7.7); Neutrophils % 75.5 %; Nucleated Red Blood Cells % 0 %; Platelet Count 199 10^3/cmm (130-400); Red Blood Count 4.03 10^6/uL (4.1-5.3); White Blood Count 7.5 10^3/uL (4.0-10.0)
[2022-06-15 12:26] LABS: Alanine Aminotransferase 20 U/L (0-33); Albumin Level 4.2 g/dL (3.5-5.2); Alkaline Phosphatase 98 U/L (35-105); Anion Gap 17.4 (5-19); Aspartate Amino Transferase 26 U/L (0-32); Blood Urea Nitrogen 27 mg/dL (8-23); Calcium 9.2 mg/dL (8.5-10.5); Carbon Dioxide 27 mmol/L (22-29); Chloride 95 mmol/L (98-107); Globulin 3.2 g/dL (1.3-4.6); Glucose 194 mg/dL (65-115); Osmolality Calculated 292 mOsm/kg (285-295); Potassium 3.4 mmol/L (3.5-5.1); Sodium 136 mmol/L (136-145); Total Bilirubin 0.3 mg/dL (0.15-1.2); Total Protein 7.4 g/dL (6.6-8.7)
[2022-06-15 14:00] VITALS: BMI 29.3
[2022-06-15] MEDS: sodium chloride 0.9% 250 ML 75 ML IV (14:10)
[2022-06-15] MEDS: famotidine 20 mg/2 mL INJ IVP (14:10)
[2022-06-15] MEDS: palonosetron 0.25 mg/5 mL SDV IVP (14:11)
[2022-06-15 14:15] LABS: Cancer Antigen 19 9 > 10000 U/mL (0-35)
[2022-06-15] MEDS: paclitaxel protein-bound 230 MG in empty flexible container 1 EACH 92 MG IV (14:45)
[2022-06-15] MEDS: gemcitabine 1,800 MG in sodium chloride 0.9% (100 ml) 100 ML 200 MG IV (15:25)
[2022-06-15 16:14] VITALS: BP 125/63; PULSE 68; RESP 17; TEMP 36.9; O2SAT 97
[2022-06-22 08:41] LABS: Basophils % 0.6 %; Eosinophils % 0.6 %; Hematocrit 28.7 % (37.0-47.0); Hemoglobin 9.4 g/dL (11.5-15.3); Lymphocytes # 0.5 10^3/uL (0.8-4.8); Lymphocytes % 14.2 %; Mean Corpuscular HGB Conc 32.8 g/dL (30.0-36.0); Mean Corpuscular Hemoglobin 28.8 pg (28.0-34.0); Mean Platelet Volume 10.6 fL (7.4-10.4); Monocytes # 0.1 10^3/uL (0.2-0.9); Neutrophils % 80.1 %; Nucleated Red Blood Cells % 0 %; Platelet Count 134 10^3/cmm (130-400); Red Blood Count 3.26 10^6/uL (4.1-5.3); Red Cell Distribution Width 20.3 % (12.1-15.1); White Blood Count 3.4 10^3/uL (4.0-10.0)
[2022-06-22 09:00] LABS: Alanine Aminotransferase 20 U/L (0-33); Albumin Level 3.8 g/dL (3.5-5.2); Alkaline Phosphatase 88 U/L (35-105); Anion Gap 18.8 (5-19); Aspartate Amino Transferase 19 U/L (0-32); Blood Urea Nitrogen 28 mg/dL (8-23); Carbon Dioxide 25 mmol/L (22-29); Chloride 93 mmol/L (98-107); Globulin 3.3 g/dL (1.3-4.6); Glucose 214 mg/dL (65-115); Osmolality Calculated 288 mOsm/kg (285-295); Potassium 3.8 mmol/L (3.5-5.1); Sodium 133 mmol/L (136-145); Total Bilirubin 0.5 mg/dL (0.15-1.2); Total Protein 7.1 g/dL (6.6-8.7)
[2022-06-22] MEDS: sodium chloride 0.9% 250 ML 75 ML IV (10:39)
[2022-06-22] MEDS: palonosetron 0.25 mg/5 mL SDV IVP (10:40)
[2022-06-22] MEDS: famotidine 20 mg/2 mL INJ IVP (10:41)
[2022-06-22] MEDS: paclitaxel protein-bound 230 MG in empty flexible container 1 EACH 92 MG IV (11:21)
[2022-06-22 11:24] LABS: Ferritin 242 ng/mL (15-150); Iron 34 ug/dL (37-145); Percent Saturation 15.5 % (20-50); Total Iron Binding Capacity 219 mcg/dl; Unsaturated Iron Binding 185 ug/dL (112-347)
[2022-06-22] MEDS: gemcitabine 1,800 MG in sodium chloride 0.9% (100 ml) 100 ML 200 MG IV (11:58)
[2022-06-22 12:03] LABS: Vitamin B12 > 2000 pg/mL (232-1245)
[2022-06-22 12:41] VITALS: BP 97/50; PULSE 72; RESP 16; TEMP 36.2; O2SAT 94
== END 2022-06-23 23:59 | disposition home or self-care (01) ==
PROVIDERS: Nurse Practitioner Family; PCP Nurse Practitioner Family; Visit Provider Internal Medicine Hematology & Oncology
DX: Z51.11 Encounter for antineoplastic chemotherapy (principal); C25.2 Malignant neoplasm of tail of pancreas; C78.7 Secondary malignant neoplasm of liver and intrahepatic bile duct; I35.0 Nonrheumatic aortic (valve) stenosis; J90 Pleural effusion, not elsewhere classified; R97.8 Other abnormal tumor markers; S80.11XA Contusion of right lower leg, initial encounter; Z87.891 Personal history of nicotine dependence; Z95.828 Presence of other vascular implants and grafts; X58.XXXA Exposure to other specified factors, initial encounter
CPT/HCPCS: 80053; 82607; 82728; 83540; 83550; 85025; 86301; 96361; 96375; 96413; 96417; 99214; J1100; J2469; J3490; J7050; J9201; J9264

== ENCOUNTER 2022-06-23 11:15 | Emergency (ER) | payer MEDICARE, OTHER, SELFPAY ==
[2022-06-23] VITALS (9 sets, daily range): BP systolic 77–86; BP diastolic 41–54; PULSE 33–107; RESP 15–30; O2SAT 71–95
--- NOTE | 2022-06-23 11:27 | ED_ITS ---
HPI - Weakness General: Chief complaint: Weakness Stated complaint: WEAKNESS/ BRADYCARDIA Time Seen by Provider: 06/23/22 11:17 Source: EMS Mode of arrival: EMS Limitations: altered mental status History of Present Illness: This 82-year-old female with a history of paroxysmal A-fib, CHF and CKD was brought in by EMS for evaluation of bradycardia, weakness and altered mental status. Home health had gone in to see patient this morning and discovered that her heart rate was in the 40s. Also, patient was found to be confused and extremely weak. EMS reports that they gave 2 mg of atropine prior to arrival. Systolic blood pressure is in the 160s. Here in the ER, patient is unable to provide any useful history. She is able to answer her name but could not answer any questions beyond that. Dried blood was seen around both nostrils. There is no active epistaxis at this time. She is currently on 3 L of oxygen with oxygen saturation in the upper 90s. Review of records shows she is on amiodarone, metoprolol and Eliquis among other meds. Review of Systems General: Reports: ROS unobtainable due to mental status PFSH ED PFSH: Medical History Atherosclerotic heart disease of [place] coronary artery with unstable angina pectoris Breast cancer CHF exacerbation Diabetes mellitus Gout Hyperlipidemia Hypertension Hypothyroidism Hypoxia NSTEMI (non-ST elevated myocardial infarction) Pancreatic cancer Pancreatic mass Paroxysmal atrial fibrillation with RVR 4.5 sec pause with beta abel therapy- now on amiodarone Pleural effusion Pulmonary edema Severe aortic valve stenosis Referred to Dr. Pickard for TAVR Surgical History History of hysterectomy History of mastectomy History of thyroidectomy History of tonsillectomy Family History Other CAD (coronary artery disease) Social History Smoking and tobacco status: former smoker Alcohol intake: never Physical Exam Const: OTHER: Appears weak, lethargic and unable to provide any additional history. HENMT: COMMON NORMALS: normocephalic HEAD & SCALP: normocephalic OTHER: Dried blood around the nostrils. No active epistaxis. Eye: COMMON NORMALS: EOMs intact bilaterally Neck/C-Spine: COMMON NORMALS: full ROM and supple Chest: OTHER: Left mastectomy Resp: OTHER: Bibasilar Rales. Diminished breath sounds at the bases. No wheezing. No acute respiratory distress. Cardio: COMMON NORMALS: No murmurs present (Cardio) OTHER: Bradycardia, irregular rhythm, no murmurs. GI: COMMON NORMALS: Normal to inspection, nondistended, normoactive bowel lola nds present and non-tender Extremity: OTHER: Bilateral pedal edema. Course Consultations: Consultation #1: Case discussed with Dr. Chen home administrator on-call. He recommends discussing with Dr. Shah general environmental field office manager on-call. He is a temporary pacemaker as needed, he will be happy to do it. Time: 12:15 Consultation #2: Case discussed with Dr. Shah. He agrees with starting epinephrine infusion with external pacing. Time: 12:17 Vital Signs: Vital signs: Vital Signs Pulse Rate 42 L 06/23/22 11:45 Respiratory Rate 19 H 06/23/22 11:45 Blood Pressure 86/54 06/23/22 11:56 Pulse Oximetry 94 06/23/22 11:45 Oxygen Delivery Me thod 06/23/22 11:45 Oxygen Flow Rate 4 06/23/22 11:45 MDM - Weakness Medical Decision Making Medical decision making: This 82-year-old female with a history of breast cancer, pancreatic cancer, CHF, CKD and aortic stenosis was brought in by EMS with altered mental status, bradycardia and generalized weakness. Daughter, who arrived the ER later, noted that she saw patient yesterday afternoon at which time she was at her normal state of health. This morning, her condition had changed. EMS reports giving her 2 mg of atropine prior to ER arrival with systolic blood pressures in the 160s. Here in the ER, her heart rate was in the 30s and 40s. Shortly after ER arrival, blood pressure check revealed a systolic in the mid 80s. So a decision to start external pacing was made. IV epinephrine infusion will be started. Meanwhile, Dr. Chen, home administrator on-call was immediately consulted. He recommends talking to Dr. Shah general environmental field office manager on-call. He is agreeable to placing a temporary pacer if needed. Case discussed with Dr. Shah who agrees with external pacing and epinephrine drip. Patient was paced at 80 bpm and IV epinephrine infusion started. IO was placed in the right tibia. I discussed again with daughter who confirmed that patient is full code. Around 1237, patient coded and CPR according to ACLS guidelines were started. At this time, Dr. Shah was already in the room. She was intubated with a 7.5 ET tube. Multiple doses of IV epinephrine were given. With each pulse check, she was in PEA. After multiple rounds of CPR, I had an extensive discussion with daughter who at this time, believes that in the absence of any positive response, she is agreeable with stopping every resuscitative efforts. CPR was stopped at 1259 and patient was pronounced. Lab Data Radiology Impressions Chest X-Ray 06/23/22 11:33 IMPRESSION: 1. Pulmonary edema. Pulmonary findings are progressive since 04/06/2022. Left pleural effusion is no longer present. 2. Stable cardiac enlargement. Critical Care Time Critical Care Time: Critical Care Time: Yes Total Critical Care Time: 55 Attestation: Patient presented with symptomatic bradycardia with hypotension and hypoxia. She subsequently coded and CPR according to ACLS was administered. She was intubated. Patient was pronounced at 1259 hrs. Discharge Plan Discharge Patient Disposition: Clinical Impression: Bradycardic cardiac arrest Coding Level of Care Code ED Senior Agricultural Assistant for Marc Lopez
--- NOTE | 2022-06-23 11:33 | XRR_ITS ---
PROCEDURE INFORMATION: Exam: XR Chest Exam date and time: 06/23/2022 11:41 AM Age: 82 years old Clinical indication: Other: Hypoxia TECHNIQUE: Imaging protocol: Radiologic exam of the chest. Views: 1 view. COMPARISON: CR XR chest 1V portable [id number] 04/06/2022 5:14 AM FINDINGS: Tubes, catheters and devices: There is a right chest port with the line tip appropriately positioned in the lower SVC near the cavoatrial junction. Lungs: There is no consolidation. There is mild diffuse bilateral pulmonary ground-glass opacity. Central vessels are enlarged. Interstitial markings are ill-defined. Pleural spaces: There is no pleural effusion or pneumothorax. Heart/Mediastinum: There is mild enlargement of the cardiac silhouette. Bones/joints: Bones are unremarkable. XR/XR chest 1V portable [id number] IMPRESSION: 1. Pulmonary edema. Pulmonary findings are progressive since 04/06/2022. Left pleural effusion is no longer present. 2. Stable cardiac enlargement.
--- NOTE | 2022-06-23 11:34 | ECG_ITS ---
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 Measurements Intervals [place] Rate: 32 P: 0 LA: 0 QRS: 112 QRSD: 166 T: 28 QT: 662 QTc: 488 Interpretive Statements JUNCTIONAL BRADYCARDIA RIGHT BUNDLE BRANCH BLOCK T WAVE INVERSIONS Compared to ECG 04/02/2022 02:59:44 Right bundle-branch block now present Left posterior fascicular block now present ST (T wave) deviation now present Prolonged QT interval now present Sinus rhythm no longer present Sinus arrhythmia no longer present Electronically Signed On 06-23-2022 16:42:45 CDT by Marvin Chen M.D. [id number]
--- NOTE | 2022-06-23 12:09 | PC.PHAR ---
pt unable to verify medications-medications entered are from the med list the pt brought in and ext med history-unable to verify which home health company the pt uses-pts med list had to stop taking anastrozole 1mg daily last filled 01/15/22 90d/s-notes are made in the pharmacy comments
[2022-06-23] MEDS: EPINEPHrine 2.5 MG in sodium chloride 0.9% 250 ML 30.3 MG IV (12:34)
--- NOTE | 2022-06-23 13:14 | PC.NURSE ---
WHILE SETTING UP PACER ON PATIENT, NURSE NOTED THE PATIENT HAD NO RESPIRATIONS. PT HAD A PACED HR OF 80. WHEN PACER TURNED OFF, NO PULSE NOTED. PHYSICIAN WAS IN ROOM AT THIS TIME AND CPR WAS STARTED. PT WAS BAGGED AT THIS TIME AND INTUBATION PROCESS STARTED AT THIS TIME WELL.
--- NOTE | 2022-06-23 13:20 | PC.NURSE ---
CPR STARTED AT 1237. EPI GIVEN AT 1239, 1242, 1245, 1248, 1251, 1254, 1257 EPI DRIP CONTINUED THROUGHOUT CODE ASYSTOLE NOTED AT 1239, 1241, 1243 PEA NOTED THROUGHOUT REMAINDER OF CODE TOD 1259
== END 2022-06-23 15:00 | disposition expired ==
PROVIDERS: Emergency Provider Family Medicine; PCP Nurse Practitioner Family
DX: R00.1 Bradycardia, unspecified (principal); I46.2 Cardiac arrest due to underlying cardiac condition; J81.1 Chronic pulmonary edema; I25.10 Atherosclerotic heart disease of native coronary artery without angina pectoris; Z85.3 Personal history of malignant neoplasm of breast; I13.0 Hypertensive heart and chronic kidney disease with heart failure and stage 1 through stage 4 chronic kidney disease, or unspecified chronic kidney disease; E11.22 Type 2 diabetes mellitus with diabetic chronic kidney disease; N18.9 Chronic kidney disease, unspecified; I50.9 Heart failure, unspecified; E78.5 Hyperlipidemia, unspecified; I25.2 Old myocardial infarction; Z85.07 Personal history of malignant neoplasm of pancreas; Z87.891 Personal history of nicotine dependence
CPT/HCPCS: 31500; 71045; 93005; 96365; 99291; 99292; J0171; J0330; J7050